=== PATIENT | female | born 2005 | race Hispanic/Latino ===

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

== ENCOUNTER 2024-08-22 14:01 | Emergency (ER) | payer SELFPAY ==
--- OUTSIDE RECORDS SUMMARY | 2024-08-22 14:04 | XMS REPORT | Continuity of Care Document ---
Author Name Unknown Address [address] [facility] [address] [place] [address] [facility] thconnect Address [address] [facility] [address] [place] [address] Care Team Providers Care Tobacco Cloth Reclaimer Name Role Phone Elizabeth Rios Primary Care Physician DAVID RODRIGUEZ Attending Clinician Unavailable DAVID RODRIGUEZ Attending Clinician Unavailable BHAKTI DAVALOS Attending Clinician Unavailable BHAKTI DAVALOS Attending Clinician Unavailable Saba Israel MD Attending Clinician [phone] Doctor Unassigned, Catharine Attending Clinician U navailable SABA ISRAEL Attending Clinician Unavail able Hailey Berumen PA-C Attending Clinician HAILEY BERUMEN Attending Clinician Unavailable BI QUICK Attending Clinician Unavail able Blaine RNDaron Attending Clinician Unavailab ponce Pcp, Patient Does Not Have A Attending Clinician Only, Ang Db Test Attending Clinician UnavailAlbert Kauffman Attending Clinician [phone] ALBERT TOTH Attending Clinician Unavailable Karl Morocho Attending Clinician [phone] DAVID RODRIGUEZ Admitting Clinician Unavailable SABA ISRAEL Admitting Clinician Unavail able Payers Payer Name Policy Type Policy Number Effective Date Expirati on Date Source MEDICAID PENDING PENDING 2023 00:00:00 [employer] Manda [id number] 2017 00:00:00 Problems Condition Name Condition Details Condition Category Status Onset Date Resolution Date Last Treatment Date Treating Clinician Comments Source No known active problems No known active problems Disease [facility] Allergies, Adverse Reactions, Alerts Allergy Name Allergy Type Status Severity Reaction(s) Onset Date Inactive Date Treating Clinician Comments Source NO KNOWN ALLERGIE S Drug Class Active [facility] Social History Social Habit Start Date Stop Date Quantity Comments Source [facility] SARS-[facility]-2 (event) 2022-07-03 00:00:00 2022-07-13 16:28:00 Not sure [facility] History of Social function 2019-03-25 00:00:00 2019-03-25 00:00:00 [facility] Tobacco use and exposure 2018-07-15 00:00:00 2018-07-15 00:00:00 Smokeless tobacco non-user [facility] Sex Assigned At 2005 00:00:00 2005 00:00:00 [facility] Smoking Status Start Date Stop Date Source Never smoked tobacco [facility] Medications Ordered Medication Name Filled Medication Name [...]
D uration of Therapy: Other (see Comments) [facility] naproxen (NAPROSYN) tablet 250 mg 2022-09 04:15: 00 Yes 250mg 250 mg, Oral, BID MEALS, First dose on 08/17/23 at 2215, Until Discontinu ed, Routine [facility] TAKE ONE CAPSULE BY MOUTH EVERY 8 HOURS FOR 7 DAYS 2022-09 00:00: 00 Yes Fam Almanzar naproxen 250 mg tablet 2022-09 00:00: 00 Yes [id number] 250mg Take 1 tablet by mouth every 8 (eight) hours as needed for Pain (scale 1-3) or Pain (scale 4-6). [facility] cephALEXin 250 mg capsule 2022-09 00:00: 00 08-25 05:59 :00 No [id number] 250mg Take 1 capsule by mouth every 8 (eight) hours for 7 days. [facility] NaCl 0.9% (NS) IV infusion 1,000 mL 2022-09 03:15: 00 Yes 1000mL at 999 mL/hr, Intravenou s, CONTINUOUS , Starting on Sat08/13/23 at 2114, Until Discontinu ed, Routine [facility] acetaminoph en (TYLENOL) tablet 1,000 mg 2022-09 03:15: 00 08-14 03:43 :00 No 1000mg 1,000 mg, Oral, ONCE, 1 dose, On Sat08/13/23 at 2114, Routine [facility] ondansetron (ZOFRAN (PF)) injection 4 mg 2022-09 02:15: 00 08-14 03:43 :00 No 4mg 4 mg, Slow IV Push, ONCE, 1 dose, On Sat08/13/23 at 2015, NERISSA [facility] doxylamine- pyridoxine, vit B6, (DICLEGIS) 10-10 mg per tablet 2022-09 00:00: 00 Yes [id number] 2{tbl} Take 2 tablets by mouth at bedtime as needed for Nausea and Vomiting (N/V). [facility] RINSE MOUTH WITH 15ML (1 CAPFUL) FOR 30 SECONDS AM AND PM AFTER TOOTHBRUSHI NG. EXPECTORATE AFTER RINSING, DO NOT SWALLOW 2022-09 00:00: 00 11-26 00:00 :00 No 12 Fam Almanzar TAKE 1 TABLET BY MOUTH EVERY 6 HOURS NEEDED NAUSEA 02-18 00:00: 00 Yes Fam Ute Yohan TAKE 1 TABLET BY MOUTH EVERY 12 HOURS 02-18 00:00: 00 Yes Fam Almanzar TAKE 1 TABLET TWICE DAILY UNTIL FINISHED. 5-17 00:00: 00 11-26 00:00 :00 No 500 Fam Almanzar TAKE 1 TABLET NOW, AND REPEAT IN 4 DAYS. 5-15 00:00: 00 11-26 00:00 :00 No 150 Fam Almanzar TAKE 1 TABLET BY MOUTH 2 TIMES A DAY FOR 5 DAYS 2021-09 2- 00:00: 00 Yes Fam Almanzar IBUPROFEN 2021-09 00:00: 00 Yes Fam Almanzar IBUPROFEN 800MG TABLETS 2021-09 00:00: 00 Yes Fam Almanzar CLINDAMYCIN 2021-09 00:00: 00 Yes Fam Almanzar APAP/CODEIN E 300-30MG 2021-09 00:00: 00 Yes Fam Almanzar TAKE 1 CAPSULE BY MOUTH THREE TIMES A DAY FOR 7 DAYS 2021-09 00:00: 00 Yes Fam Almanzar CHLORHEX GLU REMEDIOS 0.12% 2021-09 00:00: 00 11-26 00:00 :00 No 12 Fam Almanzar No known medications 2021-09 0-18 17:24: 05 No No known medication s [facility] SMZ/TMP DS [id number] 0-18 00:00: 00 Yes Fam Almanzar sulfamethox azole-trime thoprim (BACTRIM DS) 800-160 mg per tablet 2021-0918 00:00: 00 07-14 04:59 :00 No [id number] 1{tbl} Take 1 tablet by mouth in the morning and 1 tablet in the evening. Do all this for 10 days. [facility] No known medications - 16:14: 29 No No known medication s [facility] TAKE 1 TABLET NOW, AND REPEAT IN 4 DAYS. - 00:00: 00 Yes 150 Fam Almanzar &lt -24 00:00: 00 Yes 100 Fam Almanzar FLUCONAZOLE -18 00:00: 00 11-26 00:00 :00 No 150 Fam Almanzar METRONIDAZO L 2021-0 7-18 00:00: 00 4- 03-13 00:00 :00 No 500 Famaleksandr Almanzar &lt 2022-0 7-13 00:00: 00 No 100 &lt 2022-0 7-13 00:00: 00 No TAKE 1/2 TABLET BY MOUTH EVERY 8 HOURS NEEDED FOR PAIN 2-0 7-13 00:00: 00 No 800 &lt 2022-0 7-13 00:00: 00 Yes Fam Almanzar TAKE 1/2 TABLET BY MOUTH EVERY 8 HOURS NEEDED FOR PAIN 2-0 7-13 00:00: 00 Yes 800 Fam Almanzar &lt 2022-0 7-13 00:00: 00 Yes 100 Fam Almanzar Dose Unknown 0 5-09 00:00: 00 No Dose Unknown 0 5-09 00:00: 00 Yes Fam Almanzar Dose Unknown 0 4-11 00:00: 00 No Dose Unknown 0 4-11 00:00: 00 Yes Fam Almanzar Dose Unknown 0 4-08 00:00: 00 No terbinafine HCl 1 % topical cream 2021-0 4-08 00:00: 00 No 1% terbinafine HCl 1 % topical cream 0 4-08 00:00: 00 Yes 1% Fam Almanzar Dose Unknown 0 4-08 00:00: 00 Yes Fam Almanzar Dose Unknown 0 2-15 00:00: 00 No doxycycline monohydrate 100 mg capsule 0 2-15 00:00: 00 Yes 1mg Fam Almanzar No known medications 0 6-16 10:38: 31 No [facility] ibuprofen 200 mg tablet 0 2-11 00:00: 00 No 1mg acetaminoph en 325 mg tablet 0 2-11 00:00: 00 No 1mg Bromfed DM 2 mg-30 mg-10 mg/5 mL oral syrup 0 2-11 00:00: 00 No 10mg/5 mL ibuprofen 200 mg tablet 0 2-11 00:00: 00 Yes 1mg Fam Almanzar acetaminoph en 325 mg tablet 0 2-11 00:00: 00 Yes 1mg Fam Almanzar Bromfed DM 2 mg-30 mg-10 mg/5 mL oral syrup 2019-0 2-11 00:00: 00 Yes 10mg/5 mL Fam Almanzar No known medications No Un raysa [facility] Immunizations Ordered Immunization Name Filled Immunization Name Date Status Comments Source HPV 2015-12-09 00:00:00 Completed [facility] Meningococcal Vaccine 2015-12-09 00:00:00 Completed [facility] TDAP 2015-12-09 00:00:00 Completed [facility] HPV 2015-12-09 00:00:00 Completed [facility] Meningococcal Vaccine 2015-12-09 00:00:00 Completed [facility] TDAP 2015-12-09 00:00:00 Completed [facility] HPV 2015-12-09 00:00:00 Completed [facility] Meningococcal Vaccine 2015-12-09 00:00:00 Completed [facility] TDAP 2015-12-09 00:00:00 Completed [facility] HPV 2015-12-09 00:00:00 Completed [facility] Meningococcal Vaccine 2015-12-09 00:00:00 Completed [facility] TDAP 2015-12-09 00:00:00 Completed [facility] HPV 2015-12-09 00:00:00 Completed [facility] Meningococcal Vaccine 2015-12-09 00:00:00 Completed [facility] TDAP 2015-12-09 00:00:00 Completed [facility] Varicella (varivax)(chicken pox) 2008-11-10 00:00:00 Completed [facility] DTAP 2008-11-10 00:00:00 Completed [facility] MMR 2008-11-10 00:00:00 Completed [facility] Polio (IPV/OPV) 2008-11-10 00:00:00 Completed [facility] DTAP 2008-11-10 00:00:00 Completed [facility] MMR 2008-11-10 00:00:00 Completed [facility] Polio (IPV/OPV) 2008-11-10 00:00:00 Completed [facility] Varicella (varivax)(chicken pox) 2008-11-10 00:00:00 Completed [facility] DTAP 2008-11-10 00:00:00 Completed [facility] MMR 2008-11-10 00:00:00 Completed [facility] Polio (IPV/OPV) 2008-11-10 00:00:00 Completed [facility] Varicella (varivax)(chicken pox) 2008-11-10 00:00:00 Completed [facility] DTAP 2008-11-10 00:00:00 Completed [facility] MMR 2008-11-10 00:00:00 Completed [facility] Polio (IPV/OPV) 2008-11-10 00:00:00 Completed [facility] Varicella (varivax)(chicken pox) 2008-11-10 00:00:00 Completed [facility] DTAP 2008-11-10 00:00:00 Completed [facility] MMR 2008-11-10 00:00:00 Completed [facility] Polio (IPV/OPV) 2008-11-10 00:00:00 Completed [facility] Varicella (varivax)(chicken pox) 2008-11-10 00:00:00 Completed [facility] DTAP Unknown Completed [facility] HPV Unknown Completed [facility] Meningococcal Vaccine Unknown Completed [facility] MMR Unknown Completed [facility] Polio (IPV/OPV) Unknown Completed [facility] TDAP Unknown Completed [facility] Varicella (varivax)(chicken pox) Unknown Completed [facility] DTAP Unknown Completed [facility] HPV Unknown Completed [facility] Meningococcal Vaccine Unknown Completed [facility] MMR Unknown Completed [facility] Polio (IPV/OPV) Unknown [facility] Com[facility] Varicella (varivax)(chicken pox) Unknown Completed [facility] DTAP Unknown Completed [facility] HPV Unknown Completed [facility] Meningococcal Vaccine Unknown Completed [facility] MMR Unknown Completed [facility] Polio (IPV/OPV) Unknown [facility] Completed [facility] Varicella (varivax)(chicken pox) Unknown Completed [facility] DTAP Unknown Completed [facility] HPV Unknown Completed [facility] Meningococcal Vaccine Unknown Completed [facility] MMR Unknown Completed [facility] Polio (IPV/OPV) Unknown Completed [facility] TDAP Unknown Completed [facility] Varicella (varivax)(chicken pox) Unknown Completed [facility] DTAP Unknown Completed [facility] HPV Unknown Completed [facility] Meningococcal Vaccine Unknown Completed [facility] MMR Unknown Completed [facility] Polio (IPV/OPV) Unknown Completed [facility] TDAP Unknown Completed [facility] Varicella (varivax)(chicken pox) Unknown Completed [facility] Vital Signs Vital Name Observation Time Observation Value Comments S ource Systolic blood pressure 2023-08-18 04:31:00 101 mm[Hg] [facility] Diastolic blood pressure 2023-08-18 04:31:00 69 mm[Hg] [facility] Heart rate 2023-08-18 04:31:00 90 /min [facility] Body temperature 2023-08-18 04:31:00 37.22 Lizbeth [facility] Respiratory rate 2023-08-18 04:31:00 18 /min [facility] Oxygen saturation in Arterial blood by Pulse oximetry 2023-08-18 04:31:00 99 /min [facility] Body height 2023-08-17 23:43:00 149.9 cm [facility] Body weight 2023-08-17 23:43:00 43.999 kg [facility] BMI 2023-08-17 23:43:00 19.59 kg/m2 [facility] Body mass index (BMI) [Percentile] Per age and sex 2023-08-17 23:43:00 24.26 % [facility] Systolic blood pressure 2023-08-14 06:00:00 99 mm[Hg] [facility] Diastolic blood pressure 2023-08-14 06:00:00 68 mm[Hg] [facility] Heart rate 2023-08-14 06:00:00 90 /min [facility] Body temperature 2023-08-14 06:00:00 36.78 Lizbeth [facility] Respiratory rate 2023-08-14 06:00:00 16 /min [facility] Oxygen saturation in Arterial blood by Pulse oximetry 2023-08-14 06:00:00 98 /min [facility] Body weight 2023-08-14 00:42:00 43.954 kg [facility] BMI 2023-08-14 00:42:00 19.57 kg/m2 [facility] Body mass index (BMI) [Percentile] Per age and sex 2023-08-14 00:42:00 24.03 % [facility] Body height 2023-08-14 00:41:00 149.9 cm [facility] Systolic blood pressure 2022-07-03 21:47:00 102 mm[Hg] [facility] Diastolic blood pressure 2022-07-03 21:47:00 68 mm[Hg] [facility] Heart rate 2022-07-03 21:47:00 85 /min [facility] Body temperature 2022-07-03 21:47:00 36.56 Lizbeth [facility] Respiratory rate 2022-07-03 21:47:00 14 /min [facility] Body height 2022-07-03 21:47:00 152.4 cm [facility] Body weight 2022-07-03 21:47:00 43.182 kg [facility] BMI 2022-07-03 21:47:00 18.59 kg/m2 [facility] Body mass index (BMI) [Percentile] Per age and sex 2022-07-03 21:47:00 15.48 % [facility] Oxygen saturation in Arterial blood by Pulse oximetry 2022-07-03 21:47:00 99 /min [facility] Systolic blood pressure 2022-06-12 20:38:00 111 mm[Hg] [facility] Diastolic blood pressure 2022-06-12 20:38:00 74 mm[Hg] [facility] Heart rate 2022-06-12 20:38:00 89 /min [facility] Body temperature 2022-06-12 20:38:00 36.72 Lizbeth [facility] Respiratory rate 2022-06-12 20:38:00 18 /min [facility] Body height 2022-06-12 20:38:00 152 cm [facility] Body weight 2022-06-12 20:38:00 40.994 kg [facility] BMI 2022-06-12 20:38:00 17.74 kg/m2 [facility] Body mass index (BMI) [Percentile] Per age and sex 2022-06-12 20:38:00 7.29 % [facility] BP Systolic 2024-08-19 13:33:00 129 mm[Hg] Step hen F Yohan BP Diastolic 2024-08-19 13:33:00 76 mm[Hg] Joseph phen F Yohan Weight Measured 2024-08-19 13:33:00 100.80 pounds Fam F Yohan Height Measured 2024-08-19 13:33:00 59.00 inches Fam F Yohan Body Temperature 2024-08-19 13:33:00 98.10 degrees Fam F Yohan Heart Rate 2024-08-19 13:33:00 85.00 /min Sanjana en F Yohan Respiratory Rate 2024-08-19 13:33:00 18.00 /min Fam F Yohan Height Measured 2024-04-25 13:50:00 59.00 inches Fam F Yohan Body Temperature 2024-04-25 13:50:00 97.70 degrees Fam F Yohan Heart Rate 2024-04-25 13:50:00 84.00 /min Sanjana en F Yohan Respiratory Rate 2024-04-25 13:50:00 16.00 /min Fam F Yohan BP Systolic 2024-04-25 13:50:00 106 mm[Hg] Step hen F Yohan BP Diastolic 2024-04-25 13:50:00 67 mm[Hg] Joseph phen F Yohan Weight Measured 2024-04-25 13:50:00 103.80 pounds Fam F Yohan BP Systolic 2023-07-08 14:39:00 102 mm[Hg] Step hen F Yohan BP Diastolic 2023-07-08 14:39:00 68 mm[Hg] Joseph phen F Yohan Weight Measured 2023-07-08 14:39:00 99.00 pounds Fam F Yohan Height Measured 2023-07-08 14:39:00 59.00 inches Fam F Yohan Body Temperature 2023-07-08 14:39:00 97.90 degrees Fam F Yohan Heart Rate 2023-07-08 14:39:00 102.00 /min Step hen F Yohan Respiratory Rate 2023-07-08 14:39:00 Fam F Yohan BP Systolic 2023-01-28 09:50:00 111 mm[Hg] Step hen F Yohan BP Diastolic 2023-01-28 09:50:00 56 mm[Hg] Joseph phen F Yohan Weight Measured 2023-01-28 09:50:00 95.20 pounds Fam F Yohan Height Measured 2023-01-28 09:50:00 59.00 inches Fam F Yohan Body Temperature 2023-01-28 09:50:00 97.90 degrees Fam F Yohan Heart Rate 2023-01-28 09:50:00 83.00 /min Sanjana en F Yohan Respiratory Rate 2023-01-28 09:50:00 Fam F Yohan BP Systolic 2022-11-13 14:45:00 116 mm[Hg] Step hen F Yohan BP Diastolic 2022-11-13 14:45:00 69 mm[Hg] Joseph phen F Yohan Weight Measured 2022-11-13 14:45:00 90.80 pounds Fam F Yohan Height Measured 2022-11-13 14:45:00 59.00 inches Fam F Yohan Body Temperature 2022-11-13 14:45:00 97.80 degrees Fam F Yohan Heart Rate 2022-11-13 14:45:00 80.00 /min Sanjana en F Yohan Respiratory Rate 2022-11-13 14:45:00 18.00 /min Fam F Yohan BP Systolic 2022-03-28 09:42:00 132 mm[Hg] Step hen F Yohan BP Diastolic 2022-03-28 09:42:00 82 mm[Hg] Joseph phen F Yohan Weight Measured 2022-03-28 09:42:00 90.80 pounds Fam F Yohan Height Measured 2022-03-28 09:42:00 59.00 inches Fam F Yohan Body Temperature 2022-03-28 09:42:00 97.80 degrees Fam F Yohan Heart Rate 2022-03-28 09:42:00 Sanjana en F Yohan Respiratory Rate 2022-03-28 09:42:00 Fam F Yohan BP Systolic 2021-12-22 10:44:00 128 mm[Hg] Step hen F Yohan BP Diastolic 2021-12-22 10:44:00 69 mm[Hg] Joseph phen F Yohan Weight Measured 2021-12-22 10:44:00 90.80 pounds Fam F Yohan Height Measured 2021-12-22 10:44:00 59.00 inches Fam F Yohan Body Temperature 2021-12-22 10:44:00 98.40 degrees Fam F Yohan Heart Rate 2021-12-22 10:44:00 75.00 /min Sanjana en F Yohan Respiratory Rate 2021-12-22 10:44:00 Fam F Yohan BP Systolic 2021-10-19 11:26:00 137 mm[Hg] Step hen F Yohan BP Diastolic 2021-10-19 11:26:00 81 mm[Hg] Joseph phen F Yohan Weight Measured 2021-10-19 11:26:00 88.80 pounds Fam F Yohan Height Measured 2021-10-19 11:26:00 59.00 inches Fam F Yohan Body Temperature 2021-10-19 11:26:00 98.70 degrees Fam F Yohan Heart Rate 2021-10-19 11:26:00 98.00 /min Sanjana en F Yohan Respiratory Rate 2021-10-19 11:26:00 Fam F Yohan BP Systolic 2021-06-01 14:34:00 Step hen F Yohan BP Diastolic 2021-06-01 14:34:00 Joseph phen F Yohan Weight Measured 2021-06-01 14:34:00 98.00 pounds Fam F Yohan Height Measured 2021-06-01 14:34:00 59.00 inches Fam F Yohan Body Temperature 2021-06-01 14:34:00 Fam F Yohan Heart Rate 2021-06-01 14:34:00 Sanjana en F Yohan Respiratory Rate 2021-06-01 14:34:00 Fam F Yohan BP Systolic 2019-10-27 11:16:00 107 mm[Hg] Step hen F Yohan BP Diastolic 2019-10-27 11:16:00 69 mm[Hg] Joseph phen Ute Almanzar Weight Measured 2019-10-27 11:16:00 94.40 pounds Fam Almanzar Height Measured 2019-10-27 11:16:00 Fam Almanzar Body Temperature 2019-10-27 11:16:00 99.00 degrees Fam Almanzar Heart Rate 2019-10-27 11:16:00 75.00 /min Sanjana en Ute Almanzar Respiratory Rate 2019-10-27 11:16:00 Fam Almanzar BP Systolic 2019-05-08 09:17:00 112 mm[Hg] Gabino hen Ute Almanzar BP Diastolic 2019-05-08 09:17:00 61 mm[Hg] Joseph phen Ute Almanzar Weight Measured 2019-05-08 09:17:00 96.20 pounds Fam Almanzar Height Measured 2019-05-08 09:17:00 59.25 inches Fam Almanzar Body Temperature 2019-05-08 09:17:00 98.30 degrees Fam Almanzar Heart Rate 2019-05-08 09:17:00 86.00 /min Sanjana en Ute Almanzar Respiratory Rate 2019-05-08 09:17:00 16.00 /min Fam Almanzar Procedures Procedure Date / Time Performed Performing Clinician Source US FIRST TRIMESTER LESS THAN 14 WEEKS WITH TRANSVAGINAL 2023-08-18 03:30:00 David Rodriguez [facility] TEST, SERUM 2023-08-18 01:08:00 Shannon Rodriguez [facility] ABORH CONFIRMATION (LAB ONLY) 2023-08-18 01:08:00 David Rodriguez [facility] URINALYSIS 2023-08-18 00:32:00 David Rodriguez [facility] HB ABO GROUPING 2023-08-18 00:18:00 David Rodriguez U [facility] COMP. METABOLIC PANEL ([id number]) 2023-08-18 00:14:00 David Rodriguez [facility] TOTAL BETA HCG ASSAY 2023-08-18 00:14:00 Cande Rodriguez [facility] CBC WITH DIFF 2023-08-18 00:14:00 David Rodriguez [facility] ASSIGNMENT OF BENEFITS 2023-08-17 23:52:00 Docto r Unassigned, Catharine [facility] CONSENT/REFUSAL FOR DIAGNOSIS AND TREATMENT 2023-08-17 23:33:48 Doctor Unassigned, Catharine [facility] LIPASE 2023-08-14 03:32:00 Bhakti Davalos [facility] COMP. METABOLIC PANEL ([id number]) 2023-08-14 03:32:00 Bhakti Davalos [facility] CBC WITH DIFF 2023-08-14 03:32:00 Bhakti Davalos [facility] URINALYSIS 2023-08-14 03:32:00 Bhakti Davalos [facility] RAPID INFLUENZA A/B 2023-08-14 03:32:00 Bhakti Davalos [facility] COVID-19 (ID NOW RAPID TESTING) 2023-08-14 03:32:00 Bhakti Davalos [facility] NOTICE OF PRIVACY PRACTICES 2023-08-14 02:28:50 Doctor Unassigned, Catharine [facility] ASSIGNMENT OF BENEFITS 2023-08-14 02:24:29 Docto r Unassigned, Catharine [facility] CONSENT/REFUSAL FOR DIAGNOSIS AND TREATMENT 2023-08-14 00:24:52 Doctor Unassigned, Catharine [facility] POCT MOLECULAR FLU 2022-06-12 21:00:00 Hailey Berumen [facility] POCT MOLECULAR STREP 2022-06-12 20:57:00 Hailey Berumen [facility] ASSIGNMENT OF BENEFITS 2022-06-12 20:35:53 Docto r Unassigned, Catharine [facility] Plan of Care Planned Activity Planned Date Details Comments Source Goal Plan of Care Note [code = 62833-5] Goal Plan of Care Note [code = 04174-2] Goal Plan of Care Note [code = 03419-8] Goal Plan of Care Note [code = 05170-0] Goal Plan of Care Note [code = 62272-3] Goal Plan of Care Note [code = 14163-2] Goal Plan of Care Note [code = 56534-5] Goal Plan of Care Note [code = 68206-1] Goal Plan of Care Note [code = 65374-1] Goal Plan of Care Note [code = 79880-3] Goal Plan of Care Note [code = 95741-2] Encounters Start Date/Time End Date/Time Encounter Type Admission Type Attending [facility] Care Department Encounter ID Source 2024-08-19 13:19:09 2024-08-19 13:19:09 Outpatient [facility] [id number] Fam Almanzar 2024-08-19 00:00:00 2024-08-19 00:00:00 Outpatient Visit [facility] [id number] Fam Almanzar 2024-04-25 13:43:50 2024-04-25 13:43:50 Outpatient [facility] [id number] Fam Almanzar 2024-04-25 00:00:00 2024-04-25 00:00:00 Outpatient Visit [facility] [id number] Fam Almanzar 2023-08-17 17:58:00 2023-08-17 22:42:00 Emergency X DAVID RODRIGUEZ PAMALA [facility] ERT [id number] [facility] 2023-08-17 17:58:00 2023-08-17 22:42:00 Emergency David Rodriguez [facility] .2.840.114 350.1.13.10 4.2.7.2.686 [id number] [facility] 2023-08-13 18:45:00 2023-08-14 00:41:00 Emergency X BHAKTI DAVALOS WAKILI [facility] ERT [id number] [facility] 2023-08-13 18:45:00 2023-08-14 00:41:00 Emergency Bhakti Davalos [facility] .2.840.114 350.1.13.10 4.2.7.2.686 [id number] [facility] 2023-07-08 14:40:53 2023-07-08 14:40:53 Outpatient [place] [id number] Fam Almanzar 2023-01-28 09:47:03 2023-01-28 09:47:03 Outpatient [facility] [id number] Fam Unger Yohan 2022-11-13 14:41:03 2022-11-13 14:41:03 Outpatient [place] [id number] Fam Unger Yohan 2022-07-30 00:00:00 2022-07-30 00:00:00 Telephone Saba [facility] 1.840.114 350.1.13.10 4.2.7.2.686 [id number] [facility] 2022-07-26 00:00:00 2022-07-26 00:00:00 Patient Secure Msg Doctor Unassigned, Catharine [facility] 1.0.114 350.1.13.10 4.2.7.2.686 [id number] [facility] 2022-07-13 16:29:54 2022-07-13 23:59:00 Outpatient R SABA ISRAEL [facility] [id number] [facility] 2022-07-13 16:29:54 2022-07-13 23:59:00 Hospital Encounter Saba Israel [facility] 1.840.114 350.1.13.10 4.2.7.2.686 [id number] [facility] 2022-07-03 16:30:00 2022-07-03 17:02:08 Outpatient R SABA ISRAEL [facility] [id number] [facility] 2022-07-03 16:30:00 2022-07-03 17:02:08 Office Visit Adelaida MuSabavania [facility] 1.2.840.114 350.1.13.10 4.2.7.2.686 [id number] [facility] 2022-06-12 16:00:00 2022-06-12 16:30:00 Office Visit Hailey Berumen [facility] 1.2.840.114 350.1.13.10 4.2.7.2.686 [id number] [facility] 2022-06-12 16:00:00 2022-06-12 16:00:00 Outpatient HAILEY MCFARLAND [facility] [id number] [facility] 2022-06-12 00:00:00 2022-06-12 00:00:00 Orders Only Doctor Unassigned, Catharine [facility] 1.2.840.114 350.1.13.10 4.2.7.2.686 [id number] [facility] 2022-03-28 00:00:00 2022-03-28 00:00:00 Outpatient Visit [id number] 2021-11-02 11:20:00 2021-11-02 11:20:00 Outpatient BI WOOTEN [facility] [id number] [facility] 2021-11-02 11:00:00 2021-11-02 11:00:00 Outpatient BI WOOTEN [facility] [id number] [facility] 2021-10-19 14:00:00 2021-10-19 14:00:00 Outpatient BI WOOTEN [facility] [id number] [facility] 2021-05-29 00:00:00 2021-05-29 00:00:00 Patient Secure Msg Doctor Unassigned, Catharine [facility] 1.2.840.114 350.1.13.10 4.2.7.2.686 [id number] [facility] 2021-05-29 00:00:00 2021-05-29 00:00:00 Letter (Out) [place], [facility] 1.2.840.114 350.1.13.10 4.2.7.2.686 [id number] [facility] 2021-05-29 00:00:00 2021-05-29 00:00:00 Letter (Out) [place], [facility] 1.2.840.114 350.1.13.10 4.2.7.2.686 [id number] [facility] 2021-05-29 00:00:00 2021-05-29 00:00:00 Telephone Pcp, Patient Does Not Have A [facility] 1.2.840.114 350.1.13.10 4.2.7.2.686 [id number] [facility] 2021-05-28 15:00:00 2021-05-28 15:00:00 Outpatient R [facility] [id number] [facility] 2021-05-28 13:21:41 2021-05-28 13:36:41 Laboratory Only Only, Ang Db Test Ry Tothssica [facility] 1.2.840.114 350.1.13.10 4.2.7.2.686 [id number] [facility] 2021-05-28 13:25:00 2021-05-28 13:25:00 Outpatient R ALBERT TOTH [facility] [id number] [facility] 2021-03-01 09:20:00 2021-03-01 09:20:00 Outpatient R [facility] [id number] [facility] 2021-01-27 00:00:00 2021-01-27 00:00:00 Patient Secure Karl Mars [facility] [place] 1.2.840.114 350.1.13.10 4.2.7.2.686 [id number] [facility] 2021-01-25 18:40:00 2021-01-25 18:40:00 Outpatient R [facility] [id number] [facility] Results Test Description Test Time Test Comments Results Result Co mments Source TRICHOMONAS, NAAT, [id number] 22:08:05* Test Item Value Reference Range Interpretation Comme nts TRICHOMONAS, NAAT, URINE (test code = 56291) NEGATIVE NEGATIVE Testing is perfo rmed with Velia SATISH 6800/8800 method usingreal-time polymerase chain reaction (PCR) method. A negative result does not exclude low level infection, specimensampling error, or collection error. HIV 1/2 4TH GEN, RFLX [id number] 04:38:17* Test Item Value Reference Range Interpretation Comme nts HIV 1/2 4TH GEN, RFLX CONF ( test code = 3514) NON-REACTIVE NON-REACTIVE HEPATITIS PANEL, [id number] 04:38:17* Test Item Value Reference Range Interpretation Comments HEPATITIS A TOTAL AB (test code = 2725) REACTIVE NON-REACTIVE A HEPATITIS B SURF AG (test code = 2739) NON-REACTIVE NON-REACTIVE HEP B CORE TOTAL AB (test code = 2729) NON-REACTIVE NON-REACTIVE HEPATITIS B SURFACE AB (test code = 2737) NON-REACTIVE NON-REACTIVE HEPATITIS C ANTIBODY (test code = 4675) NON-REACTIVE NON-REACTIVE INTERPRETATION HEPATITIS A: (test code = 2552) (NOTE) Hepatitis A sero logy consistent with past exposure or previousvaccination to hepatitis A virus. No evidence of current acutehepatitis A infection. INTERPRETATION HEPATITIS B: (test code = 36559) (NOTE) Hepatitis B sero logy shows no evidence of past exposure to orcurrent infection with hepatitis B virus. No evidence of hepatitis Bimmunization is identified. INTERPRETATION HEPATITIS C: (test code = 40236) (NOTE) Hepatitis C sero logy shows no evidence of exposure to hepatitisC virus at this time. It can take up to 12 months after exposure tothe hepatitis C virus for antibodies to become detectable in the blood in certain patients. HEPATITIS A [id number] 04:38:17* Test Item Value Reference Range Interpretation Comme nts HEPATITIS A IgM (test code = 2728) NON-REACTIVE NON-REACTIVE UNLESS OTHERW ISE INDICATED, ALL TESTING PERFORMED AT [facility] [address] [place] [address] COMMUTATOR V RING ASSEMBLER: NO MELGAR M.D. CLIA NUMBER [id number] [place]. [id number] 03:24:20* Test Item Value Reference Range Interpretation Comme nts RPR RESULT (test code = 3501) NON-REACTIVE NON-REACTIVE RPR TITER (test code = 3500) NOT INDIC. TITER NOT INDIC. CT/NG, NAAT, [id number] 15:25:07* Test Item Value Reference Range Interpretation Comme nts CHLAMYDIA, NAAT, URINE (test code = 21461) NEGATIVE NEGATIVE Testing is perfo rmed with Velia SATISH 6800/8800 systems usingreal-time polymerase chain reaction (PCR) method. A negative result does not exclude low level infection, specimensampling error, or collection error. GONORRHEA, NAAT, URINE (test code = 67907) NEGATIVE NEGATIVE Testing is perfo rmed with Velia SATISH 6800/8800 systems usingreal-time polymerase chain reaction (PCR) method. A negative result does not exclude low level infection, specimensampling error, or collection error. UNLESS OTHERWISE INDICATED, ALL TESTING PERFORMED AT [facility] [address] [place] [address] COMMUTATOR V RING ASSEMBLER: NO MELGAR M.D. CLIA NUMBER [id number] [place]. [id number] CT/NG, NAAT, [id number] 00:00:00* Test Item Value Reference Range Interpretation Comme nts CHLAMYDIA, NAAT, URINE (test code = 87635) NEGATIVE GONORRHEA, NAAT, URINE (test code = 01024) NEGATIVE Fam Unger AustinCT/NG, NAAT, [id number] 00:00:00* Test Item Value Reference Range Interpretation Comme nts CHLAMYDIA, NAAT, URINE (test code = 93286) NEGATIVE GONORRHEA, NAAT, URINE (test code = 61712) NEGATIVE Fam Unger AustinPREGNANCY TEST, [id number] 02:25:38* Test Item Value Reference Range Interpretation Comme nts PREG SERUM (test code = 5843610118) Positive BEE (test code = BEE) Positive greater t jackson or equal to 10 IU/L hCG. [facility]2023-08-18 01:40:00* Test Item Value Reference Range Interpretation Comme nts ABO & RH (test code = 20) O Positive [facility] BETA HCG [id number] 01:29:04* Test Item Value Reference Range Interpretation Comme nts BETA HCG (test code = 3412431020) 50780.00 See_Comment [Automated Dishablea ge] The system which generated this result transmitted reference range: Non- female and male patients: <5 mIU/mL. The reference range was not used to interpret this result as normal/abnormal. BEE (test code = BEE) Gestational Age ?Range (mIU/mL) 1-10 ?Weeks ?77-90905349-15 Weeks ?33635-08421878-48 Weeks ?6689-14057105-50 Weeks ?4831-237507 Biotin has been reported to cause a negative bias, interpret results relative to patient's use of biotin. [facility]. METABOLIC PANEL (95724)2023-08-18 00:43:44* Test Item Value Reference Range Interpretation Comme nts NA (test code = 3801081897) 138 mmol/L 135-145 K (test code = 0372924209) 3.8 mmol/L 3.5-5.0 CL (test code = 3343531003) 104 mmol/L 98-108 CO2 TOTAL (test code = 1998384597) 27 mmol/L 23-31 AGAP (test code = 5647257026) 7 2-16 BUN (test code = 4357488454) 9 mg/dL 7-23 GLUCOSE (test code = 1721203802) 92 mg/dL 70-110 CREATININE (test code = 4360227738) 0.46 mg/dL 0.50-1.04 L TOTAL BILI (test code = 2684124924) 0.5 mg/dL 0.1-1.1 CALCIUM (test code = 5429783283) 9.6 mg/dL 8.6-10.6 T PROTEIN (test code = 5963057006) 7.3 g/dL 6.3-8.2 ALBUMIN (test code = 6462060843) 4.2 g/dL 3.5-5.0 ALK PHOS (test code = 2597285794) 66 U/L 34-122 ALTv (test code = 1742-6) 34 U/L 5-35 AST(SGOT) (test code = 3867677715) 44 U/L 13-40 H eGFR (test code = 08146-0) 142.5 mL/min/1.73m2 CKD-EPI eGFR (2020). Assuming creatinine has been stable day-to-day for at least three months, the eGFR indicates Category G1 (>= 90 mL/min/1.73 m2) Lab Interpretation (test code = 97264-0) Abnormal [facility] WITH [id number] 00:31:46* Test Item Value Reference Range Interpretation Comme nts WBC (test code = 6690-2) 11.06 See_Comment [Automated Uberseq] The system which generated this result transmitted reference range: 4.50 - 13.50 10*3/?L. The reference range was not used to interpret this result as normal/abnormal. RBC (test code = 789-8) 4.63 See_Comment [Automated Uberseq] The system which generated this result transmitted [...] 33.2 g/dL 32.0-36.0 RDW-SD (test code = 04677-4) 39.4 fL 38.5-49.0 RDW-CV (test code = 788-0) 13.0 % 11.5-14.0 PLT (test code = 777-3) 287 See_Comment [Automated messa ge] The system which generated this result transmitted reference range: 135 - 361 10*3/?L. The reference range was not used to interpret this result as normal/abnormal. MPV (test code = 31959-1) 10.7 fL 9.4-13.3 NRBC/100 WBC (test code = 8346956720) 0.0 See_Comment [Automated AppwoRx ssage] The system which generated this result transmitted reference range: 0.0 - 10.0 /100 WBCs. The reference range was not used to interpret this result as normal/abnormal. NRBC x10^3 (test code = 4966428175) See_Comment [Automated Dishablea ge] The system which generated this result transmitted reference range: 10*3/?L. The reference range was not used to interpret this result as normal/abnormal. GRAN MAT (NEUT) % (test code = 770-8) 73.7 % IMM GRAN % (test code = 2833153784) 0.30 % LYMPH % (test code = 736-9) 15.9 % MONO % (test code = 5905-5) 8.3 % EOS % (test code = 713-8) 1.5 % BASO % (test code = 706-2) 0.3 % GRAN MAT x10^3(ANC) (test code = 6145662237) 8.15 10*3/uL 1.50-10.30 IMM GRAN x10^3 (test code = 1507471643) 0.03 10*3/uL 0.00-0.06 LYMPH x10^3 (test code = 731-0) 1.76 10*3/uL 0.70-7.40 MONO x10^3 (test code = 742-7) 0.92 10*3/uL 0.00-0.50 H EOS x10^3 (test code = 711-2) 0.17 10*3/uL 0.00-0.40 BASO x10^3 (test code = 704-7) 0.03 10*3/uL 0.00-0.10 Lab Interpretation (test code = 12139-4) Abnormal [facility] Screen - ONCE [id number] 00:28:00 * Test Item Value Reference Range Interpretation Comme nts ABO & RH (test code = 20) O Positive IAT (test code = 1185) Negative [facility], NAAT, [id number] 20:38:18* Test Item Value Reference Range Interpretation Comme nts CHLAMYDIA, NAAT, URINE (test code = 86464) NEGATIVE NEGATIVE Testing is perfo rmed with Velai SATISH 6800/8800 systems usingreal-time polymerase chain reaction (PCR) method. A negative result does not exclude low level infection, specimensampling error, or collection error. GONORRHEA, NAAT, URINE (test code = 42710) NEGATIVE NEGATIVE Testing is perfo rmed with Velia SATISH 6800/8800 systems usingreal-time polymerase chain reaction (PCR) method. A negative result does not exclude low level infection, specimensampling error, or collection error. VAGINAL PATHOGENS DNA [id number] 15:19:00* Test Item Value Reference Range Interpretation Comme nts ROSA SPECIES (test code = 85959) NEGATIVE NEGATIVE G. VAGINALIS (test code = 83159) POSITIVE NEGATIVE A T. VAGINALIS (test code = 88762) NEGATIVE NEGATIVE Note: The [facility] in [facility] VPIII Microbial Identification Testis a DNA probe test intended for use in the detectionand identification of Rosa species, Gardnerellavaginalis and Trichomonas vaginalis nucleic acid. HERPES SIMPLEX AB, [id number] 13:00:18* Test Item Value Reference Range Interpretation Comme nts HERPES SIMPLEX AB, IgM (test code = 23347) 0.70 INDEX SEE BELOW INTERPRETATION UNITS RANGE ----- ----- NEGATIVE INDEX <=0.89 EQUIVOCAL INDEX 0.90-1.09 POSITIVE INDEX >=1.10 HERPES SIMPLEX 1/2 AB, IgG [id number] 06:53:36* Test Item Value Reference Range Interpretation Comme nts HERPES SIMPLEX 1 AB, IgG (test code = 24441) 0.507 INDEX SEE BELOW INTERPRETATION U NITS RANGE ----- ----- NON-REACTIVE INDEX <1.000 REACTIVE INDEX >=1.000 HERPES SIMPLEX 2 AB, IgG (test code = 39138) 0.076 INDEX SEE BELOW INTERPRETATION U NITS RANGE ----- ----- NON-REACTIVE INDEX <1.000 REACTIVE INDEX >=1.000 HIV 1/2 4TH GEN, RFLX [id number] 06:53:36* Test Item Value Reference Range Interpretation Commjoseph portillo HIV 1/2 4TH GEN, RFLX CONF ( test code = 3514) NON-REACTIVE NON-REACTIVE HEPATITIS PANEL, [id number] 06:53:36* Test Item Value Reference Range Interpretation Comme nts HEPATITIS A IgM (test code = 42736) NON-REACTIVE NON-REACTIVE HEPATITIS B CORE IgM (test code = 4644) NON-REACTIVE NON-REACTIVE HEPATITIS B SURF AG (test code = 2739) NON-REACTIVE NON-REACTIVE HEPATITIS C ANTIBODY (test code = 4675) NON-REACTIVE NON-REACTIVE INTERPRETATION HEPATITIS A: (test code = 2552) (NOTE) Hepatitis A serology shows no evidence of acute hepatitis A. INTERPRETATION HEPATITIS B: (test code = 22178) (NOTE) Hepatitis B serology shows no evidence of acute hepatitis B andno indication of exposure to hepatitis B virus in the previous hina eight months. INTERPRETATION HEPATITIS C: (test code = 59387) (NOTE) Hepatitis C serology shows no evidence of exposure to hepatitisC virus at this time. It can take up to 12 months after exposure tothe hepatitis C virus for antibodies to become detectable in the blood in certain patients. [id number] 04:02:01* Test Item Value Reference Range Interpretation Comme nts RPR RESULT (test code = 3501) NON-REACTIVE NON-REACTIVE RPR TITER (test code = 3500) NOT INDIC. TITER NOT INDIC. UNLESS OTHERWISE INDICATED, ALL TESTING PERFORMED AT [facility] [address] [place] [address] COMMUTATOR V RING ASSEMBLER: NO MELGAR M.D. [place] NUMBER [id number] [facility] [place]. [id number] HERPES SIMPLEX [id number] 00:00:00* Test Item Value Reference Range Interpretation Comme nts HERPES SIMPLEX AB, IgM (test code = 88222) 0.70 INDEX Fam AlmanzarHERPES SIMPLEX 1/2 [id number] 00:00:00* Test Item Value Reference Range Interpretation Comme nts HERPES SIMPLEX 1 AB, IgG (te st code = 44291) 0.507 INDEX HERPES SIMPLEX 2 AB, IgG (te st code = 57655) 0.076 INDEX Fam AlmanzarVAGINAL PATHOGENS DNA [id number] 00:00:00* Test Item Value Reference Range Interpretation Comme nts ROSA SPECIES (test code = 55343) NEGATIVE G. VAGINALIS (test code = 79446) POSITIVE T. VAGINALIS (test code = 06012) NEGATIVE Fam AlmanzarHIV 1/2 4TH GEN, RFLX [id number] 00:00:00* Test Item Value Reference Range Interpretation Comme nts HIV 1/2 4TH GEN, RFLX CONF ( test code = 3514) NON-REACTIVE Fam AlmanzarACUTE HEPATITIS [id number] 00:00:00* Test Item Value Reference Range Interpretation Comme nts HEPATITIS A IgM (test code = 58533) NON-REACTIVE HEPATITIS B CORE IgM (test c ode = 4644) NON-REACTIVE HEPATITIS B SURF AG (test co de = 2739) NON-REACTIVE HEPATITIS C ANTIBODY (test c ode = 4675) NON-REACTIVE INTERPRETATION HEPATITIS A: (test code = 2552) (NOTE) INTERPRETATION HEPATITIS B: (test code = 75102) (NOTE) INTERPRETATION HEPATITIS C: (test code = 08097) (NOTE) Fam AlmanzarCT/NG, TMA, [id number] 00:00:00* Test Item Value Reference Range Interpretation Comme nts CHLAMYDIA, NAAT, URINE (test code = 40798) NEGATIVE GONORRHEA, NAAT, URINE (test code = 60973) NEGATIVE Fam [id number] 00:00:00* Test Item Value Reference Range Interpretation Comme nts RPR RESULT (test code = 3501) NON-REACTIVE RPR TITER (test code = 3500) NOT INDIC. TITER Fam PenaPES SIMPLEX [id number] 00:00:00* Test Item Value Reference Range Interpretation Comme nts HERPES SIMPLEX AB, IgM (test code = 44671) 0.70 INDEX Fam AlmanzarHERPES SIMPLEX 1/2 [id number] 00:00:00* Test Item Value Reference Range Interpretation Comme nts HERPES SIMPLEX 1 AB, IgG (te st code = 67040) 0.507 INDEX HERPES SIMPLEX 2 AB, IgG (te st code = 43168) 0.076 INDEX Fam AlmanzarVAGINAL PATHOGENS DNA [id number] 00:00:00* Test Item Value Reference Range Interpretation Comme nts ROSA SPECIES (test code = 44575) NEGATIVE G. VAGINALIS (test code = 20708) POSITIVE T. VAGINALIS (test code = 40808) NEGATIVE Fam AlmanzarHIV 1/2 4TH GEN, RFLX [id number] 00:00:00* Test Item Value Reference Range Interpretation Comme nts HIV 1/2 4TH GEN, RFLX CONF ( test code = 3514) NON-REACTIVE Fam AlmanzarACUTE HEPATITIS [id number] 00:00:00* Test Item Value Reference Range Interpretation Comme nts HEPATITIS A IgM (test code = 80545) NON-REACTIVE HEPATITIS B CORE IgM (test c ode = 4644) NON-REACTIVE HEPATITIS B SURF AG (test co de = 2739) NON-REACTIVE HEPATITIS C ANTIBODY (test c ode = 4675) NON-REACTIVE INTERPRETATION HEPATITIS A: (test code = 2552) (NOTE) INTERPRETATION HEPATITIS B: (test code = 42029) (NOTE) INTERPRETATION HEPATITIS C: (test code = 28846) (NOTE) Fam AlmanzarCT/NG, TMA, [id number] 00:00:00* Test Item Value Reference Range Interpretation Comme nts CHLAMYDIA, NAAT, URINE (test code = 20316) NEGATIVE GONORRHEA, NAAT, URINE (test code = 84487) NEGATIVE Fam [id number] 00:00:00* Test Item Value Reference Range Interpretation Comme nts RPR RESULT (test code = 3501) NON-REACTIVE RPR TITER (test code = 3500) NOT INDIC. TITER Fam AlmanzarPOCT MOLECULAR [id number] 21:12:14* Test Item Value Reference Range Interpretation Comme nts POCT Molecular FluA (test co de = 27277-8) Negative Negative POCT Molecular FluB (test co de = 48982-4) Negative Negative Lab Interpretation (test cod e = 83905-3) Normal [facility] MOLECULAR [id number] 21:12:14* Test Item Value Reference Range Interpretation Comme nts POCT Molecular FluA (test co de = 33144-2) Negative Negative POCT Molecular FluB (test co de = 47984-8) Negative Negative Lab Interpretation (test cod e = 20346-1) Normal [facility] MOLECULAR [id number] 21:12:14* Test Item Value Reference Range Interpretation Comme nts POCT Molecular FluA (test co de = 88354-7) Negative Negative POCT Molecular FluB (test co de = 11003-7) Negative Negative Lab Interpretation (test cod e = 99065-8) Normal [facility] MOLECULAR [id number] 21:04:45* Test Item Value Reference Range Interpretation Comme nts POCT Molecular Strep (test c ode = 05901-2) Negative Negative Lab Interpretation (test cod e = 14556-5) Normal [facility] MOLECULAR [id number] 21:04:45* Test Item Value Reference Range Interpretation Comme nts POCT Molecular Strep (test c ode = 26734-4) Negative Negative Lab Interpretation (test cod e = 00486-2) [facility] MOLECULAR [id number] 21:04:45* Test Item Value Reference Range Interpretation Comme nts POCT Molecular Strep (test c ode = 55774-1) Negative Negative Lab Interpretation (test cod e = 71979-4) Normal [facility]/NG, NAAT, [id number] 10:28:27* Test Item Value Reference Range Interpretation Comme nts GONORRHEA, NAAT (test code = 02940) NEGATIVE NEGATIVE IMPORTANT NO ISRA[place]: SEE ANNOUNCEMENT AT [email or web address] Note: Assay methodology is nucleic acid amplification by clinical support manager mediated amplification (TMA) utilizing the AptTelefon[employer] Combo 2 Assay. CHLAMYDIA, NAAT (test code = 16426) NEGATIVE NEGATIVE IMPORTANT NO ISRA[place]: SEE ANNOUNCEMENT AT [email or web address] Note: Assay methodology is nucleic acid amplification by clinical support manager mediated amplification (TMA) utilizing the Survata Combo 2 Assay. GC AND CHLAMYDIA, AMPLIFIED, [id number] 00:00:00* Test Item Value Reference Range Interpretation Comme nts GONORRHEA, NAAT (test code = 76147) NEGATIVE CHLAMYDIA, NAAT (test code = 87503) NEGATIVE Fam AlmanzarGC AND CHLAMYDIA, AMPLIFIED, [id number] 00:00:00* Test Item Value Reference Range Interpretation Comme nts GONORRHEA, NAAT (test code = 56626) NEGATIVE CHLAMYDIA, NAAT (test code = 27321) NEGATIVE Fam AlmanzarVAGINAL PATHOGENS DNA [id number] 13:18:05* Test Item Value Reference Range Interpretation Comme nts ROSA SPECIES (test code = 03074) POSITIVE NEGATIVE A G. VAGINALIS (test code = 24793) POSITIVE NEGATIVE A T. VAGINALIS (test code = 27091) NEGATIVE NEGATIVE UNLESS OTHERWISE INDICATED, ALL TESTING PERFORMED [facility] [address] [place] [address] COMMUTATOR V RING ASSEMBLER: CALVIN OLIVIA M.D. CLIA NUMBER [id number] [facility] [place]. [id number] VAGINAL PATHOGENS DNA [id number] 00:00:00* Test Item Value Reference Range Interpretation Comme nts ROSA SPECIES (test code = 38879) POSITIVE G. VAGINALIS (test code = 44085) POSITIVE T. VAGINALIS (test code = 90817) NEGATIVE Fam Unger AustinVAGINAL PATHOGENS DNA [id number] 00:00:00* Test Item Value Reference Range Interpretation Comme nts ROSA SPECIES (test code = 76476) POSITIVE G. VAGINALIS (test code = 77489) POSITIVE T. VAGINALIS (test code = 08698) NEGATIVE Fam Unger AustinCT/NG, NAAT, [id number] 12:06:45* Test Item Value Reference Range Interpretation Comme nts GONORRHEA, NAAT (test code = 96811) NEGATIVE NEGATIVE IMPORTANT NO [place]: SEE ANNOUNCEMENT AT [email or web address] [email or web address] Note: Assay methodology is nucleic acid amplification by clinical support manager mediated amplification (TMA) utilizing the Aptima Combo 2 Assay. CHLAMYDIA, NAAT (test code = 94960) NEGATIVE NEGATIVE IMPORTANT NO [place]: SEE ANNOUNCEMENT AT [email or web address] Note: Assay methodology is nucleic acid amplification by clinical support manager mediated amplification (TMA) utilizing the Aptima Combo 2 Assay. UNLESS OTHERWISE INDICATED, ALL TESTING PERFORMED [facility], [facility]. [address] [place] [address] COMMUTATOR V RING ASSEMBLER: CALVIN OLIVIA M.D. CLIA NUMBER [id number] [facility] [place]. [id number] GC AND CHLAMYDIA, AMPLIFIED, [id number] 00:00:00* Test Item Value Reference Range Interpretation Comme nts GONORRHEA, NAAT (test code = 49217) NEGATIVE CHLAMYDIA, NAAT (test code = 01882) NEGATIVE GC AND CHLAMYDIA, AMPLIFIED, [id number] 00:00:00* Test Item Value Reference Range Interpretation Comme nts GONORRHEA, NAAT (test code = 74577) NEGATIVE CHLAMYDIA, NAAT (test code = 11455) NEGATIVE Fam AlmanzarGC AND CHLAMYDIA, AMPLIFIED, [id number] 00:00:00* Test Item Value Reference Range Interpretation Comme nts GONORRHEA, NAAT (test code = 13250) NEGATIVE CHLAMYDIA, NAAT (test code = 54868) NEGATIVE Fam AlmanzarCHLAMYDIA, NAAT, [id number] 09:29:13* Test Item Value Reference Range Interpretation Comme nts CHLAMYDIA, NAAT (test code = 44480) POSITIVE NEGATIVE A IMPORTANT NO [place]: SEE ANNOUNCEMENT AT [email or web address] [email or web address] Note: Assay methodology is nucleic acid amplification by clinical support manager mediated amplification (TMA) utilizing the Aptima Combo 2 Assay. GONORRHEA, NAAT, [id number] 09:29:13* Test Item Value Reference Range Interpretation Comme nts GONORRHEA, NAAT (test code = 84745) NEGATIVE NEGATIVE IMPORTANT NO [place]: SEE ANNOUNCEMENT AT [email or web address] [email or web address] Note: Assay methodology is nucleic acid amplification by clinical support manager mediated amplification (TMA) utilizing the Survata Combo 2 Assay. CHLAMYDIA, AMPLIFIED, [id number] 00:00:00* Test Item Value Reference Range Interpretation Comme nts CHLAMYDIA, NAAT (test code = 26555) POSITIVE GC, AMPLIFIED, [id number] 00:00:00* Test Item Value Reference Range Interpretation Comme nts GONORRHEA, NAAT (test code = 10806) NEGATIVE CHLAMYDIA, AMPLIFIED, [id number] 00:00:00* Test Item Value Reference Range Interpretation Comme nts CHLAMYDIA, NAAT (test code = 82438) POSITIVE Fam AlmanzarGC, AMPLIFIED, [id number] 00:00:00* Test Item Value Reference Range Interpretation Comme nts GONORRHEA, NAAT (test code = 68065) NEGATIVE Fam AlmanzarCHLAMYDIA, AMPLIFIED, [id number] 00:00:00* Test Item Value Reference Range Interpretation Comme nts CHLAMYDIA, NAAT (test code = 97675) POSITIVE Fam AlmanzarGC, AMPLIFIED, [id number] 00:00:00* Test Item Value Reference Range Interpretation Comme nts GONORRHEA, NAAT (test code = 10007) NEGATIVE Fam AlmanzarHIV 1/2 4TH GEN, RFLX [id number] 04:39:43* Test Item Value Reference Range Interpretation Comme nts HIV 1/2 4TH GEN, RFLX CONF (test code = 3514) NON-REACTIVE NON-REACTIVE UNLESS OTHERWISE INDICATED, ALL TESTING PERFORMED [facility] [address] [place] [address] COMMUTATOR V RING ASSEMBLER: CALVIN OLIVIA M.D. CLIA NUMBER [id number] [facility] [place]. [id number] 04:03:59* Test Item Value Reference Range Interpretation Comme nts RPR RESULT (test code = 3501) NON-REACTIVE NON-REACTIVE RPR TITER (test code = 3500) NOT INDIC. TITER NOT INDIC. [id number] 00:00:00* Test Item Value Reference Range Interpretation Comme nts RPR RESULT (test code = 3501) NON-REACTIVE RPR TITER (test code = 3500) NOT INDIC. TITER HIV AB/AG COMBO RFLX [id number] 00:00:00* Test Item Value Reference Range Interpretation Comme nts HIV 1/2 4TH GEN, RFLX CONF ( test code = 3514) NON-REACTIVE [id number] 00:00:00* Test Item Value Reference Range Interpretation Comme nts RPR RESULT (test code = 3501) NON-REACTIVE RPR TITER (test code = 3500) NOT INDIC. TITER Fam AlmanzarHIV AB/AG COMBO RFLX [id number] 00:00:00* Test Item Value Reference Range Interpretation Comme nts HIV 1/2 4TH GEN, RFLX CONF ( test code = 3514) NON-REACTIVE Fam Unger [id number] 00:00:00* Test Item Value Reference Range Interpretation Comme nts RPR RESULT (test code = 3501) NON-REACTIVE RPR TITER (test code = 3500) NOT INDIC. TITER Fam AlmanzarHIV AB/AG COMBO RFLX [id number] 00:00:00* Test Item Value Reference Range Interpretation Comme nts HIV 1/2 4TH GEN, RFLX CONF ( test code = 3514) NON-REACTIVE Fam Unger Yohan
[2024-08-22] MEDS ORDERED: BENZONATATE 100 MG CAP PO ONE (14:18)
[2024-08-22 14:52] LABS: SARS-CoV-2 Antigen CONTROL BLUE LINE VIS/BG OK; SARS-CoV-2 Antigen Rapid Res Negative (Negative)
--- NOTE | 2024-08-22 15:25 | ER ---
Nurse's Notes [facility] Name: Caroline Molina Age: 18 yrs Sex: Female : 2005 Arrival Date: 08/22/2024 Time: 14:01 Bed 12 Private MD: Diagnosis: Cough;Acute pharyngitis, unspecified Presentation: 08/22 14:09 Chief complaint: Patient states: cough x4 days with sore throat since thanksgiving. [facility] Coronavirus screen: At this time, the client does not indicate any symptoms associated with coronavirus-19. Ebola Screen: No symptoms or risks identified at this time. Initial Sepsis Screen: Does the patient meet any 2 criteria? No. Patient's initial sepsis screen is negative. Does the patient have a suspected source of infection? No. Patient's initial sepsis screen is negative. Risk Assessment: Do you want to hurt yourself or someone else? Patient reports no desire to harm self or others. Onset of symptoms was August 22, 2024. 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 - Infectious Disease History:: Denies. - Social history:: Smoking status: Patient denies any tobacco usage or history of. Screenin:25 [facility] ED Fall Risk Assessment (Adult) History of falling in the last 3 months, kc6 including since admission No falls in past 3 months (0 pts) Confusion or Disorientation No (0 pts) Intoxicated or Sedated No (0 pts) Impaired Gait No (0 pts) Mobility Assist Device Used No (0 pt) Altered Elimination No (0 pt) Score/Fall Risk Level 0 - 2 = Low Risk Oriented to surroundings, Maintained a safe environment. Abuse screen: Denies threats or abuse. Denies injuries from another. Nutritional screening: No deficits noted. Tuberculosis screening: No symptoms or risk factors identified. Assessment: 14:30 General: Appears in no apparent distress. Behavior is calm, cooperative. Pain: Pain hb currently is 6 out of 10 on a pain scale. Neuro: Level of Consciousness is awake, alert, obeys commands, Oriented to person, place, time, situation. Cardiovascular: Patient's skin is warm and dry. Respiratory: Reports cough that is Respiratory effort is even, unlabored, Respiratory pattern is regular, symmetrical. GI: No signs and/or symptoms were reported involving the gastrointestinal system. : No signs and/or symptoms were reported regarding the genitourinary system. EENT: Reports sore throat . Derm: Skin is pink, warm \T\ dry. Musculoskeletal: No signs and/or symptoms reported regarding the musculoskeletal system. 15:15 Reassessment: Patient appears in no apparent distress at this time. Patient and/or hb family updated on plan of care and expected duration. Pain level reassessed. Patient is alert, oriented x 3, equal unlabored respirations, skin warm/dry/pink. Vital Signs: 14:09 BP 129 / 79; Pulse 78; Resp 18 S; Temp 99(O); Pulse Ox 99% on R/A; Weight 44.45 kg (R); kc6 Height 4 ft. 11 in. (R); Pain 6/10; 14:09 Body Mass Index 19.79 (44.45 kg, 149.86 cm) - Percentile 25.1 % kc6 14:09 Pain Scale: Adult kc6 ED Course: 14:03 Patient arrived in ED. ra3 14:06 Stephan Verma PA is PHCP. cp 14:06 Trenton Santana MD is Attending Physician. cp 14:10 Triage completed. kc6 14:10 Arm band placed on. kc6 14:24 Patient has correct armband on for positive identification. Bed in low position. Call kc6 light in reach. Side rails up X 1. Pulse ox on. NIBP on. Door closed. Noise minimized. Lights dimmed. Pillow given. 14:24 Patient maintains SpO2 saturation greater than 95% on room air. kc6 14:29 Leanna Lowe, RN is Primary Nurse. hb 14:29 SARS RAPID Sent. hb 14:29 RSV Sent. hb 14:29 Influenza Screen (a \T\ B) Sent. hb 14:29 Strep Sent. hb 14:30 Provided Education on: use of call light . hb 14:30 No provider procedures requiring assistance completed. Patient did not have IV access hb during this emergency room visit. Administered Medications: 14:29 Drug: Tessalon Perle PO 100 mg PO once Route: PO; hb 15:33 Follow up: Response: No adverse reaction hb Medication: 14:30 VIS not applicable for this client. hb Outcome: 15:25 Discharge ordered by MD. cp 15:32 Discharged to home ambulatory, hb 15:32 Condition: stable 15:32 Discharge instructions given to patient, Instructed on discharge instructions, follow up and referral plans. medication usage, Demonstrated understanding of instructions, follow-up care, medications, Prescriptions given X 2, 15:33 Patient left the ED. hb Signatures: Stephan Verma PA PA cp Baxter, Heather, RN RN Romelia Pettit RN RN kcLori Adhikari ra3 Corrections: (The following items were deleted from the chart) 14:13 14:09 Chief complaint: Patient states: sore throat and pain when coughing. states she keri hasn't been feeling well since Thanksgiving keri
--- NOTE | 2024-08-22 15:25 | EDPHYS ---
Physician Documentation [facility] Name: Caroline Molina Age: 18 yrs Sex: Female : 2005 Arrival Date: 08/22/2024 Time: 14:01 Bed 12 Private MD: ED Physician Trenton Santana HPI: 08/22 14:20 This 18 yrs old Female presents to ER via Ambulatory with complaints of Cough, cp Cold Symptoms. 14:20 The patient or guardian reports cough, sore throat. cp 14:20 Onset: The symptoms/episode began/occurred 4 day(s) ago. cp 14:20 Severity of symptoms: in the emergency department the symptoms are unchanged, despite cp home interventions. 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 - Infectious Disease History:: Denies. - Social history:: Smoking status: Patient denies any tobacco usage or history of. ROS: 14:25 Constitutional: Negative for fever, poor PO intake, cp 14:25 Eyes: Negative for injury, pain, redness, and discharge, cp 14:25 ENT: Positive for sore throat, 14:25 Cardiovascular: Negative for chest pain, 14:25 Respiratory: Positive for cough, Negative for shortness of breath, wheezing, 14:25 Abdomen/GI: Negative for abdominal pain, vomiting, diarrhea, constipation, 14:25 Neuro: Negative for altered mental status, 14:25 All other systems are negative, Exam: 14:30 Constitutional: The patient appears in no acute distress, alert, awake, non-toxic, well cp developed, well nourished, 14:30 Head/Face: Normocephalic, atraumatic. cp 14:30 Eyes: Periorbital structures: appear normal, Conjunctiva: normal, no exudate, no injection, Sclera: no appreciated abnormality, Lids and lashes: appear normal, bilaterally, 14:30 ENT: External ear(s): are unremarkable, Nose: is normal, Mouth: Lips: moist, Oral mucosa: moist, Posterior pharynx: Airway: no evidence of obstruction, patent, 14:30 Chest/axilla: Inspection: normal, 14:30 Cardiovascular: Rate: normal, Rhythm: regular, 14:30 Respiratory: the patient does not display signs of respiratory distress, Respirations: normal, no use of accessory muscles, no retractions, labored breathing, is not present, Breath sounds: are clear throughout, no decreased breath sounds, no stridor, no wheezing, 14:30 Abdomen/GI: Inspection: abdomen appears normal, Palpation: abdomen is soft and non-tender, in all quadrants, 14:30 Skin: no rash present. Vital Signs: 14:09 BP 129 / 79; Pulse 78; Resp 18 S; Temp 99(O); Pulse Ox 99% on R/A; Weight 44.45 kg (R); kc6 Height 4 ft. 11 in. (R); Pain 6/10; 14:09 Body Mass Index 19.79 (44.45 kg, 149.86 cm) - Percentile 25.1 % [facility] 14:09 Pain Scale: Adult kc6 MDM: 14:06 Medical Screening Exam initiated cp 14:30 Differential Diagnosis: Bronchitis Influenza Upper Respiratory Infection Viral Syndrome cp Pneumonia. 15:24 Data reviewed: vital signs, nurses notes, lab test result(s), and as a result, I will cp discharge patient. 15:24 Counseling: I had a detailed discussion with the patient and/or guardian regarding the cp historical points, exam findings, and any diagnostic results supporting the discharge/admit diagnosis, lab results, to return to the emergency department if symptoms worsen or persist or if there are any questions or concerns that arise at home. 08/22 14:15 Order name: Strep cp 08/22 14:54 Interpretation: Reviewed. 12 14:15 Order name: Influenza Screen (a \T\ B); Complete Time: 15:23 08/22 15:23 Interpretation: Reviewed. 08/22 14:15 Order name: RSV; Complete Time: 15:23 cp 08/22 14:15 Order name: SARS RAPID; Complete Time: 14:54 cp 08/22 14:54 Interpretation: Reviewed. 08/22 14:51 Order name: Throat Culture EDMS Administered Medications: 14:29 Drug: Tessalon Perle PO 100 mg PO once Route: PO; hb 15:33 Follow up: Response: No adverse reaction hb Disposition Summary: 08/22/24 15:25 Discharge Ordered Notes: Location: Home cp Problem: new cp Symptoms: have improved cp Condition: Stable cp Diagnosis - Cough cp - Acute pharyngitis, unspecified cp Followup: cp - With: Private Physician - When: 2 - 3 days - Reason: Worsening of condition Discharge Instructions: - Discharge Summary Sheet cp - Pharyngitis cp - Sore Throat cp - Cough, Adult cp Forms: - Medication Reconciliation Form cp - Antibiotic Education cp - Prescription Opioid Use cp - Patient Portal Instructions cp - Leadership Thank You Letter cp Prescriptions: - Bromfed DM 2-30-10 mg/5 mL Oral syrup - administer 10 milliliter ORAL route every 6-8 hours as needed for cough; 240 cp milliliter; Refills: 0, Product Selection Permitted - Amoxicillin 875 mg Oral Tablet - take 1 tablet ORAL route every 12 hours for 10 days; 20 tablet; Refills: 0, cp Product Selection Permitted Addendum: 08/24/2024 19:26 Co-signature as Attending Physician, Trenton Santana MD I reviewed the patient's care r n provided by the Advanced Practice Provider and agree with the diagnosis and treatment plan. Signatures: Dispatcher [employer] EDTrenton Henry MD MD rn Page, Corey, PA PA cp Leanna Lowe RN RN hb Campbell, Kaitlyn, RN RN kc6 Corrections: (The following items were deleted from the chart) 08/23 14:56 08/22 14:20 The patient or guardian reports cough, cp cp
[2024-08-22 15:56] VITALS: BP 129/79; TEMP 99; O2SAT 99
== END 2024-08-22 15:33 | disposition home or self-care (01) ==
LOC: ER 14:01
DX: R05.9 Cough, unspecified (principal); J02.9 Acute pharyngitis, unspecified; Z11.52 Encounter for screening for COVID-19
CPT/HCPCS: 36415; 87070; 87081; 87804; 87807; 87811; 99284

== ENCOUNTER 2024-11-15 13:14 | Emergency (ER) | payer OTHER ==
--- OUTSIDE RECORDS SUMMARY | 2024-11-15 13:18 | XMS REPORT | Continuity of Care Document ---
Author Name Unknown Address [address] [facility] [address] [place] [address] [facility] thconnect Address [address] [facility] [address] [place] [address] Care Team Providers Care Title One Reading Teacher Name Role Phone Elizabeth Rios Primary Care Physician DAVID RODRIGUEZ Attending Clinician Unavailable DAVID RODRIGUEZ Attending Clinician Unavailable BHAKTI DAVALOS Attending Clinician Unavailable BHAKTI DAVALOS Attending Clinician Unavailable Saba Israel MD Attending Clinician Doctor Unassigned, [place] Attending Clinician U navailable SABA ISRAEL Attending Clinician Unavail able Hailey Berumen PA-C Attending Clinician HAILEY BERUMEN Attending Clinician Unavailable BI QUICK Attending Clinician Unavail able Daron Valladares RN Attending Clinician Unavailab ponce Pcp, Patient Does Not Have A Attending Clinician Only, Ang Db Test Attending Clinician UnavailAlbert Kauffman Attending Clinician [phone] ALBERT TOTH Attending Clinician Unavailable Karl Morocho Attending Clinician [phone] DAVID RODRIGUEZ Admitting Clinician Unavailable SABA ISRAEL Admitting Clinician Unavail able Payers Payer Name Policy Type Policy Number Effective Date Expirati on Date Source MEDICAID PENDING PENDING 2023 00:00:00 [employer] [facility] [id number] 2017 00:00:00 Problems Condition Name Condition Details Condition Category Status Onset Date Resolution Date Last Treatment Date Treating Clinician Comments Source No known active problems No known active problems Disease [facility] Allergies, Adverse Reactions, Alerts Allergy Name Allergy Type Status Severity Reaction(s) Onset Date Inactive Date Treating Clinician Comments Source NO KNOWN ALLERGIE S Drug Class Active [facility] Social History Social Habit Start Date Stop Date Quantity Comments Source [facility] to SARS-CoV-2 (event) 2022-07-03 00:00:00 2022-07-13 16:28:00 Not sure [facility] History of Social function 2019-03-25 00:00:00 2019-03-25 00:00:00 [facility] Tobacco use and exposure 2018-07-15 00:00:00 2018-07-15 00:00:00 Smokeless tobacco non-user [facility] Sex Assigned At 2005 00:00:00 2005 00:00:00 [facility] Smoking Status Start Date Stop Date Source Never smoked tobacco [facility] Medications Ordered Medication Name Filled Medication Name Start Date Stop Date Current Medication? Ordering Clinician Indication Dosage Frequency Signature (SIG) Comments Components Source metronidazo le 500 mg tablet 09-29 00:00: 00 Yes 1mg Fam Almanzar cephALEXin (KEFLEX) capsule 250 mg 2022-09 04:30: 00 08-18 04:32 :00 No 250mg 250 mg, Oral, ONCE, 1 dose, On 08/17/23 at 2230, NERISSA
Re ason for Anti-Infec tive: Documented Infection< br>Documen cory Infection Site: Urine
D uration of Therapy: Other (see Comments) [facility] naproxen (NAPROSYN) tablet 250 mg 2022-09 04:15: 00 Yes 250mg 250 mg, Oral, BID MEALS, First dose on 08/17/23 at 2215, Until Discontinu ed, Routine [facility] TAKE ONE CAPSULE BY MOUTH EVERY 8 HOURS FOR 7 DAYS 2022-09 00:00: 00 Yes Fam Almanzar naproxen 250 mg tablet 2022-09 00:00: 00 Yes [id number] 250mg Take 1 tablet by mouth every 8 (eight) hours as needed for Pain (scale 1-3) or Pain (scale 4-6). [facility] cephALEXin 250 mg capsule 2022-09 00:00: 00 08-25 05:59 :00 No [id number] 250mg Take 1 capsule by mouth every 8 (eight) hours for 7 days. [facility] NaCl 0.9% (NS) IV infusion 1,000 mL 2022-09 03:15: 00 Yes 1000mL at 999 mL/hr, Intravenou s, CONTINUOUS , Starting on Sat08/13/23 at 2114, Until Discontinu ed, Routine [facility] acetaminoph en (TYLENOL) tablet 1,000 mg 2022-09 03:15: 00 08-14 03:43 :00 No 1000mg 1,000 mg, Oral, ONCE, 1 dose, On Sat08/13/23 at 2114, Routine [facility] ondansetron (ZOFRAN (PF)) injection 4 mg 2022-09 02:15: 00 08-14 03:43 :00 No 4mg 4 mg, Slow IV Push, ONCE, 1 dose, On Sat08/13/23 at 2015, NERISSA [facility] doxylamine- pyridoxine, vit B6, (DICLEGIS) 10-10 mg per tablet 2022-09 00:00: 00 Yes [id number] 2{tbl} Take 2 tablets by mouth at bedtime as needed for Nausea and Vomiting (N/V). [facility] RINSE MOUTH WITH 15ML (1 CAPFUL) FOR 30 SECONDS AM AND PM AFTER TOOTHBRUSHI NG. EXPECTORATE AFTER RINSING, DO NOT SWALLOW 2022-09 00:00: 00 11-26 00:00 :00 No 12 Fam Almanzar TAKE 1 TABLET BY MOUTH EVERY 6 HOURS NEEDED NAUSEA 02-18 00:00: 00 Yes Fam Almanzar TAKE 1 TABLET BY MOUTH EVERY 12 HOURS 6-05 00:00: 00 Yes Fam Almanzar TAKE 1 [...] 12 Fam Almanzar No known medications 2021-09 17:24: 05 No No known medication s [facility] SMZ/TMP DS [id number] 9039-1 0-18 00:00: 00 Yes Fam Almanzar sulfamethox azole-trime thoprim (BACTRIM DS) 800-160 mg per tablet 2021-09 00:00: 00 07-14 04:59 :00 No [id number] 1{tbl} Take 1 tablet by mouth in the morning and 1 tablet in the evening. Do all this for 10 days. [facility] No known medications 06-12 16:14: 29 No No known medication s [facility] TAKE 1 TABLET NOW, AND REPEAT IN 4 DAYS. - 00:00: 00 Yes 150 Fam Almanzar &lt -24 00:00: 00 Yes 100 Fam Almanzar FLUCONAZOLE 2022-0 7-18 00:00: 00 11-26 00:00 :00 No 150 Fam Almanzar METRONIDAZO L 2021-0 7-18 00:00: 00 11-26 00:00 :00 No 500 Fam Almanzar &lt 2022-0 7-13 00:00: 00 Yes Fam Almanzar TAKE 1/2 TABLET BY MOUTH EVERY 8 HOURS NEEDED FOR PAIN 2021-0 7-13 00:00: 00 Yes 800 Fam Almanzar &lt 2021-0 7-13 00:00: 00 Yes 100 Fam Almanzar &lt 2021-0 7-13 00:00: 00 No 100 &lt 2022-0 7-13 00:00: 00 No TAKE 1/2 TABLET BY MOUTH EVERY 8 HOURS NEEDED FOR PAIN 2021-0 - 00:00: 00 No 800 Dose Unknown 2021-0 5-09 00:00: 00 Yes Fam Almanzar Dose Unknown 0 5-09 00:00: 00 No Dose Unknown 0 4-11 00:00: 00 Yes Fam Almanzar Dose Unknown 0 4-11 00:00: 00 No terbinafine HCl 1 % topical cream 2021-0 4-08 00:00: 00 No 1% terbinafine HCl 1 % topical cream 0 4-08 00:00: 00 Yes 1% Fam Almanzar Dose Unknown 0 4-08 00:00: 00 Yes Fam Almanzar Dose Unknown 0 4-08 00:00: 00 No Dose Unknown 0 2-15 00:00: 00 No doxycycline monohydrate 100 mg capsule 0 2-15 00:00: 00 Yes 1mg Fam Almanzar No known medications 0 6-16 10:38: 31 No [facility] ibuprofen 200 mg tablet 0 2-11 00:00: 00 No 1mg acetaminoph en 325 mg tablet 2-11 00:00: 00 No 1mg Bromfed DM 2 mg-30 mg-10 mg/5 mL oral syrup 0 2-11 00:00: 00 No 10mg/5 mL ibuprofen 200 mg tablet 2-11 00:00: 00 Yes 1mg Fam Almanzar acetaminoph en 325 mg tablet 10-27 00:00: 00 Yes 1mg Fam Almanzar Bromfed DM 2 mg-30 mg-10 mg/5 mL oral syrup 10-27 00:00: 00 Yes 10mg/5 mL Fam Almanzar No known medications No Un raysa [facility] Immunizations Ordered Immunization Name Filled Immunization Name Date Status Comments Source HPV 2015-12-09 00:00:00 Completed [facility] Meningococcal Vaccine 2015-12-09 00:00:00 Completed [facility] TDAP 2015-12-09 00:00:00 Completed [facility] HPV 2015-12-09 00:00:00 Completed [facility] Meningococcal Vaccine 2015-12-09 00:00:00 Completed [facility] TDAP 2015-12-09 00:00:00 Completed [facility] HPV 2015-12-09 00:00:00 Completed [facility] Meningococcal Vaccine 2015-12-09 00:00:00 Completed [facility] TDAP 2015-12-09 00:00:00 Completed [facility] HPV 2015-12-09 00:00:00 Completed [facility] Meningococcal Vaccine 2015-12-09 00:00:00 Completed [facility] TDAP 2015-12-09 00:00:00 Completed [facility] HPV 2015-12-09 00:00:00 Completed [facility] Meningococcal Vaccine 2015-12-09 00:00:00 Completed [facility] TDAP 2015-12-09 00:00:00 Completed [facility] Varicella (varivax)(chicken pox) 2008-11-10 00:00:00 Completed [facility] DTAP 2008-11-10 00:00:00 Completed [facility] MMR 2008-11-10 00:00:00 Completed [facility] Polio (IPV/OPV) 2008-11-10 00:00:00 Completed [facility] DTAP 2008-11-10 00:00:00 Completed [facility] MMR 2008-11-10 00:00:00 Completed [facility] Polio (IPV/OPV) 2008-11-10 00:00:00 Completed [facility] Varicella (varivax)(chicken pox) 2008-11-10 00:00:00 Completed [facility] DTAP 2008-11-10 00:00:00 Completed [facility] MMR 2008-11-10 00:00:00 Completed [facility] Polio (IPV/OPV) 2008-11-10 00:00:00 Completed [facility] Varicella (varivax)(chicken pox) 2008-11-10 00:00:00 Completed [facility] DTAP 2008-11-10 00:00:00 Completed [facility] MMR 2008-11-10 00:00:00 Completed [facility] Polio (IPV/OPV) 2008-11-10 00:00:00 Completed [facility] Varicella (varivax)(chicken pox) 2008-11-10 00:00:00 Completed [facility] DTAP 2008-11-10 00:00:00 Completed [facility] MMR 2008-11-10 00:00:00 Completed [facility] Polio (IPV/OPV) 2008-11-10 00:00:00 Completed [facility] Varicella (varivax)(chicken pox) 2008-11-10 00:00:00 Completed [facility] DTAP Unknown Completed [facility] HPV Unknown Completed [facility] Meningococcal Vaccine Unknown Completed [facility] MMR Unknown Completed [facility] Polio (IPV/OPV) Unknown Completed [facility] TDAP Unknown Completed [facility] Varicella (varivax)(chicken pox) Unknown Completed [facility] DTAP Unknown Completed [facility] HPV Unknown Completed [facility] Meningococcal Vaccine Unknown Completed [facility] MMR Unknown Completed [facility] Polio (IPV/OPV) Unknown Completed [facility] TDAP Unknown Completed [facility] Varicella (varivax)(chicken pox) Unknown Completed [facility] DTAP Unknown Completed [facility] HPV Unknown Completed [facility] Meningococcal Vaccine Unknown Completed [facility] MMR Unknown Completed [facility] Polio (IPV/OPV) Unknown Completed [facility] TDAP Unknown Completed [facility] Varicella (varivax)(chicken pox) Unknown Completed [facility] DTAP Unknown Completed [facility] HPV Unknown Completed [facility] Meningococcal Vaccine Unknown Completed [facility] MMR Unknown Completed [facility] Polio (IPV/OPV) Unknown Completed [facility] TDAP Unknown Completed [facility] Varicella (varivax)(chicken pox) Unknown Completed [facility] DTAP Unknown Completed [facility] HPV Unknown Completed [facility] Meningococcal Vaccine Unknown Completed [facility] MMR Unknown Completed [facility] Polio (IPV/OPV) Unknown Completed [facility] TDAP Unknown Completed [facility] Varicella (varivax)(chicken pox) Unknown Completed [facility] Vital Signs Vital Name Observation Time Observation Value Comments S ource Systolic blood pressure 2023-08-18 04:31:00 101 mm[Hg] [facility] Diastolic blood pressure 2023-08-18 04:31:00 69 mm[Hg] [facility] Heart rate 2023-08-18 04:31:00 90 /min [facility] Body temperature 2023-08-18 04:31:00 37.22 Lizbeth [facility] Respiratory rate 2023-08-18 04:31:00 18 /min [facility] Oxygen saturation in Arterial blood by Pulse oximetry 2023-08-18 04:31:00 99 /min [facility] Body height 2023-08-17 23:43:00 149.9 cm [facility] Body weight 2023-08-17 23:43:00 43.999 kg [facility] BMI 2023-08-17 23:43:00 19.59 kg/m2 [facility] Body mass index (BMI) [Percentile] Per age and sex 2023-08-17 23:43:00 24.26 % [facility] Systolic blood pressure 2023-08-14 06:00:00 99 mm[Hg] [facility] Diastolic blood pressure 2023-08-14 06:00:00 68 mm[Hg] [facility] Heart rate 2023-08-14 06:00:00 90 /min [facility] Body temperature 2023-08-14 06:00:00 36.78 Lizbeth [facility] Respiratory rate 2023-08-14 06:00:00 16 /min [facility] Oxygen saturation in Arterial blood by Pulse oximetry 2023-08-14 06:00:00 98 /min [facility] Body weight 2023-08-14 00:42:00 43.954 kg [facility] BMI 2023-08-14 00:42:00 19.57 kg/m2 [facility] Body mass index (BMI) [Percentile] Per age and sex 2023-08-14 00:42:00 24.03 % [facility] Body height 2023-08-14 00:41:00 149.9 cm [facility] Systolic blood pressure 2022-07-03 21:47:00 102 mm[Hg] [facility] Diastolic blood pressure 2022-07-03 21:47:00 68 mm[Hg] [facility] Heart rate 2022-07-03 21:47:00 85 /min [facility] Body temperature 2022-07-03 21:47:00 36.56 Lizbeth [facility] Respiratory rate 2022-07-03 21:47:00 14 /min [facility] Body height 2022-07-03 21:47:00 152.4 cm [facility] Body weight 2022-07-03 21:47:00 43.182 kg [facility] BMI 2022-07-03 21:47:00 18.59 kg/m2 [facility] Body mass index (BMI) [Percentile] Per age and sex 2022-07-03 21:47:00 15.48 % [facility] Oxygen saturation in Arterial blood by Pulse oximetry 2022-07-03 21:47:00 99 /min [facility] Systolic blood pressure 2022-06-12 20:38:00 111 mm[Hg] [facility] Diastolic blood pressure 2022-06-12 20:38:00 74 mm[Hg] [facility] Heart rate 2022-06-12 20:38:00 89 /min [facility] Body temperature 2022-06-12 20:38:00 36.72 Lizbeth [facility] Respiratory rate 2022-06-12 20:38:00 18 /min [facility] Body height 2022-06-12 20:38:00 152 cm [facility] Body weight 2022-06-12 20:38:00 40.994 kg [facility] BMI 2022-06-12 20:38:00 17.74 kg/m2 [facility] Body mass index (BMI) [Percentile] Per age and sex 2022-06-12 20:38:00 7.29 % [facility] BP Systolic 2024-10-19 14:47:00 109 mm[Hg] Step hen F Yohan BP Diastolic 2024-10-19 14:47:00 68 mm[Hg] Joseph phen F Yohan Weight Measured 2024-10-19 14:47:00 96.60 pounds Fam F Yohan Height Measured 2024-10-19 14:47:00 59.00 inches Fam F Yoahn Body Temperature 2024-10-19 14:47:00 98.40 degrees Fam F Yohan Heart Rate 2024-10-19 14:47:00 73.00 /min Sanjana en F Yohan Respiratory Rate 2024-10-19 14:47:00 18.00 /min Fam F Yohan BP Systolic 2024-09-28 11:30:00 117 mm[Hg] Step hen F Yohan BP Diastolic 2024-09-28 11:30:00 68 mm[Hg] Joseph phen F Yohan Weight Measured 2024-09-28 11:30:00 98.80 pounds Fam F Yohan Height Measured 2024-09-28 11:30:00 59.00 inches Fam F Yohan Body Temperature 2024-09-28 11:30:00 98.70 degrees Fam F Yohan Heart Rate 2024-09-28 11:30:00 70.00 /min Sanjana en F Yohan Respiratory Rate 2024-09-28 11:30:00 18.00 /min Fam F Yohan BP Systolic 2024-08-19 13:33:00 129 mm[Hg] Step [...] Rate 2024-08-19 13:33:00 18.00 /min Fam F Yhoan Body Temperature 2024-04-25 13:50:00 97.70 degrees Fam F Yohan Heart Rate 2024-04-25 13:50:00 84.00 /min Sanjana en F Yohan Respiratory Rate 2024-04-25 13:50:00 16.00 /min Fam F Yohan BP Systolic 2024-04-25 13:50:00 106 mm[Hg] Step hen F Yohan BP Diastolic 2024-04-25 13:50:00 67 mm[Hg] Joseph phen F Yohan Weight Measured 2024-04-25 13:50:00 103.80 pounds Fam F Yohan Height Measured 2024-04-25 13:50:00 59.00 inches Fam F Yohan BP Systolic 2023-07-08 14:39:00 [...] en F Yohan Respiratory Rate 2021-06-01 14:34:00 Afm F Yohan BP Systolic 2019-10-27 11:16:00 107 mm[Hg] Step hen F Yohan BP Diastolic 2019-10-27 11:16:00 69 mm[Hg] Joseph phen F Yohan Weight Measured 2019-10-27 11:16:00 94.40 pounds Fam F Yohan Height Measured 2019-10-27 11:16:00 Fam F Yohan Body Temperature 2019-10-27 11:16:00 99.00 degrees Fam F Yohan Heart Rate 2019-10-27 11:16:00 75.00 /min Sanjana en F Yohan Respiratory Rate 2019-10-27 11:16:00 Fam F Yohan BP Systolic 2019-05-08 09:17:00 112 mm[Hg] Step hen F Yohan BP Diastolic 2019-05-08 09:17:00 61 mm[Hg] Joseph phen F Yohan Weight Measured 2019-05-08 09:17:00 96.20 pounds Fam Almanzar Height Measured 2019-05-08 09:17:00 59.25 inches Fam Almanzar Body Temperature 2019-05-08 09:17:00 98.30 degrees Fam Almanzar Heart Rate 2019-05-08 09:17:00 86.00 /min Sanjana Almanzar Respiratory Rate 2019-05-08 09:17:00 16.00 /min Fam Almanzar Procedures Procedure Date / Time Performed Performing Clinician Source US FIRST TRIMESTER LESS THAN 14 WEEKS WITH TRANSVAGINAL 2023-08-18 03:30:[address] [facility] TEST, SERUM 2023-08-18 01:08:00 Shannon Rodriguez [facility] ABORH CONFIRMATION (LAB ONLY) 2023-08-18 01:08:00 David Rodriguez [facility] URINALYSIS 2023-08-18 00:32:00 David Rodriguez [facility] HB ABO GROUPING 2023-08-18 00:18:00 David Rodriguez [facility] COMP. METABOLIC PANEL (13614) 2023-08-18 00:14:00 David Rodriguez [facility] TOTAL BETA HCG ASSAY 2023-08-18 00:14:00 Cande Rodriguez [facility] CBC WITH DIFF 2023-08-18 00:14:00 David Rodriguez [facility] ASSIGNMENT OF BENEFITS 2023-08-17 23:52:00 Docto r Unassigned, [place] [facility] CONSENT/REFUSAL FOR DIAGNOSIS AND TREATMENT 2023-08-17 23:33:48 Doctor Unassigned, [place] [facility] LIPASE 2023-08-14 03:32:00 Bhakti Davalos [facility] COMP. METABOLIC PANEL ([id number]) 2023-08-14 03:32:00 Bhakti Davalos [facility] CBC WITH DIFF 2023-08-14 03:32:00 Bhakti Davalos [facility] URINALYSIS 2023-08-14 03:32:00 Bhakti Davalos [facility] RAPID INFLUENZA A/B 2023-08-14 03:32:00 Bahkti Davalos [facility] COVID-19 (ID NOW RAPID TESTING) 2023-08-14 03:32:00 Bhakti Davalos [facility] NOTICE OF PRIVACY PRACTICES 2023-08-14 02:28:50 Doctor Unassigned, [place] [facility] ASSIGNMENT OF BENEFITS 2023-08-14 02:24:29 Docto r Unassigned, [place] [facility] CONSENT/REFUSAL FOR DIAGNOSIS AND TREATMENT 2023-08-14 00:24:52 Doctor Unassigned, [place] [facility] POCT MOLECULAR FLU 2022-06-12 21:00:00 Hailey Berumen [facility] POCT MOLECULAR STREP 2022-06-12 20:57:00 Hailey Berumen [facility] ASSIGNMENT OF BENEFITS 2022-06-12 20:35:53 Docto r Unassigned, [place] [facility] Plan of Care Planned Activity Planned Date Details Comments Source Goal Plan of Care Note [code = 46465-2] Goal Plan of Care Note [code = 06427-2] Goal Plan of Care Note [code = 94041-8] Goal Plan of Care Note [code = 37157-7] Goal Plan of Care Note [code = 45315-9] Goal Plan of Care Note [code = 54331-8] Goal Plan of Care Note [code = 08162-5] Goal Plan of Care Note [code = 84150-3] Goal Plan of Care Note [code = 86485-5] Goal Plan of Care Note [code = 80951-9] Goal Plan of Care Note [code = 27736-0] Encounters Start Date/Time End Date/Time Encounter Type Admission Type Attending Clinicians Care Facility Care Department Encounter ID Source 2024-10-19 14:39:18 2024-10-19 14:39:18 Outpatient [facility] [id number] Fam Almanzar 2024-10-19 00:00:00 2024-10-19 00:00:00 Outpatient Visit [facility] [id number] Fam Almanzar 2024-09-28 11:25:37 2024-09-28 11:25:37 Outpatient [facility] [id number] Fam Almanzar 2024-09-28 00:00:00 2024-09-28 00:00:00 Outpatient Visit [facility] [id number] Fam Almanzar 2024-08-19 13:19:09 2024-08-19 13:19:09 Outpatient [facility] [id number] Fam Almanzar 2024-08-19 00:00:00 2024-08-19 00:00:00 Outpatient Visit [facility] [id number] Fam Almanzar 2024-04-25 13:43:50 2024-04-25 13:43:50 Outpatient SFA [facility] [id number] Fam Almanzar 2024-04-25 00:00:00 2024-04-25 00:00:00 Outpatient Visit [facility] [id number] Fam Almanzar 2023-08-17 17:58:00 2023-08-17 22:42:00 Emergency X DAVID RODRIGUEZ [facility] ERT [id number] [facility] 2023-08-17 17:58:00 2023-08-17 22:42:00 Emergency David Rodriguez [facility] [id number] 350.1.13.10 [id number] [id number] [facility] 2023-08-13 18:45:00 2023-08-14 00:41:00 Emergency X BHAKTI DAVALOS [facility] ERT [id number] [facility] 2023-08-13 18:45:00 2023-08-14 00:41:00 Emergency Bhakti Davalos [facility] 1..840.114 350.1.13.10 4.2.7.2.686 [id number] [facility] 2023-07-08 14:40:53 2023-07-08 14:40:53 Outpatient [facility] [id number] Fam Almanzar 2023-01-28 09:47:03 2023-01-28 09:47:03 Outpatient [facility] [id number] Fam Almanzar 2022-11-13 14:41:03 2022-11-13 14:41:03 Outpatient [facility] [id number] Fam Almanzar 2022-07-30 00:00:00 2022-07-30 00:00:00 Telephone Saba [facility] 1.840.114 350.1.13.10 [id number] [id number] [facility] 2022-07-26 00:00:00 2022-07-26 00:00:00 Patient Secure Msg Doctor Unassigned, [place] [facility] 1.840.114 350.1.13.10 4.2.7.2.686 [id number] [facility] 2022-07-13 16:29:54 2022-07-13 23:59:00 Outpatient R SABA ISRAEL [facility] [id number] [facility] 2022-07-13 16:29:54 2022-07-13 23:59:00 Hospital Encounter Saba Israel [facility] 1.840.114 350.1.13.10 4.2.7.2.686 [id number] [facility] 2022-07-03 16:30:00 2022-07-03 17:02:08 Outpatient R SABA ISRAEL [facility] [id number] [facility] 2022-07-03 16:30:00 2022-07-03 17:02:08 Office Visit Saba Israel [facility] 1.2.840.114 350.1.13.10 4.2.7.2.686 [id number] [facility] 2022-06-12 16:00:00 2022-06-12 16:30:00 Office Visit Hailey Berumen [facility] 1.2.840.114 350.1.13.10 4.2.7.2.686 [id number] [facility] 2022-06-12 16:00:00 2022-06-12 16:00:00 Outpatient HAILEY [facility] [facility] [id number] [facility] 2022-06-12 00:00:00 2022-06-12 00:00:00 Orders Only Doctor Unassigned, [place] [facility] 1.2.840.114 350.1.13.10 4.2.7.2.686 [id number] [facility] 2022-03-28 00:00:00 2022-03-28 00:00:00 Outpatient Visit [id number] 2021-11-02 11:20:00 2021-11-02 11:20:00 Outpatient BI WOOT[facility] [id number] [facility] 2021-11-02 11:00:00 2021-11-02 11:00:00 Outpatient BI [facility] [id number] [facility] 2021-10-19 14:00:00 2021-10-19 14:00:00 Outpatient BI [place] [facility] [id number] [facility] 2021-05-29 00:00:00 2021-05-29 00:00:00 Patient Secure Msg Doctor Unassigned, [place] [facility] 1.2.840.114 350.1.13.10 4.2.7.2.686 [id number] [facility] 2021-05-29 00:00:00 2021-05-29 00:00:00 Letter (Out) [place] [facility] 1.2.840.114 350.1.13.10 4.2.7.2.686 [id number] [facility] 2021-05-29 00:00:00 2021-05-29 00:00:00 Letter (Out) [place], [facility] 1.2.840.114 350.1.13.10 4.2.7.2.686 [id number] [facility] 2021-05-29 00:00:00 2021-05-29 00:00:00 Telephone Pcp, Patient Does Not Have A [facility] 1.2.840.114 350.1.13.10 4.2.7.2.686 [id number] [facility] 2021-05-28 15:00:00 2021-05-28 15:00:00 Outpatient R [facility] [id number] [facility] 2021-05-28 13:21:41 2021-05-28 13:36:41 Laboratory Only Only, Ang Db Test Ry T[place] [facility] 1.2.840.114 350.1.13.10 4.2.7.2.686 [id number] [facility] 2021-05-28 13:25:00 2021-05-28 13:25:00 Outpatient R ALBERT TOTH [facility] [id number] [facility] 2021-03-01 09:20:00 2021-03-01 09:20:00 Outpatient R [facility] [id number] [facility] 2021-01-27 00:00:00 2021-01-27 00:00:00 Patient Secure [place] [facility] 1.2.840.114 350.1.13.10 4.2.7.2.686 [id number] [facility] 2021-01-25 18:40:00 2021-01-25 18:40:00 Outpatient R [facility] [id number] [facility] Results Test Description Test Time Test Comments Results Result Co mments Source VAGINAL PATHOGENS DNA [id number] 15:05:58* Test Item Value Reference Range Interpretation Comme nts ROSA SPECIES (test code = ) NEGATIVE NEGATIVE G. VAGINALIS (test code = 10857) POSITIVE NEGATIVE A T. VAGINALIS (test code = 30075) NEGATIVE NEGATIVE Note: The [employer] VPIII Microbial Identification Testis a DNA probe test intended for use in the detectionand identification of Rosa species, Gardnerellavaginalis and Trichomonas vaginalis nucleic acid. UNLESS OTHERWISE INDICATED, ALL TESTING PERFORMED AT [facility] [address] [place] [address] MEAT COUNTER CLERK: NO MELGAR M.D. CLIA NUMBER [id number] [facility] [place]. [id number] VAGINAL PATHOGENS DNA [id number] 00:00:00* Test Item Value Reference Range Interpretation Comme nts ROSA SPECIES (test code = ) NEGATIVE G. VAGINALIS (test code = 36718) POSITIVE T. VAGINALIS (test code = 76194) NEGATIVE Fam Unger AustinCT/NG, NAAT, [id number] 22:24:35* Test Item Value Reference Range Interpretation Comme nts CHLAMYDIA, NAAT, URINE (test code = 41667) NEGATIVE NEGATIVE Testing is perfo rmed with [employer] 6800/8800 systems usingreal-time polymerase chain reaction (PCR) method. A negative result does not exclude low level infection, specimensampling error, or collection error. GONORRHEA, NAAT, URINE (test code = 50503) NEGATIVE NEGATIVE Testing is perfo rmed with Velia SATISH 6800/8800 systems usingreal-time polymerase chain reaction (PCR) method. A negative result does not exclude low level infection, specimensampling error, or collection error. TRICHOMONAS, NAAT, [id number] 22:08:05* Test Item Value Reference Range Interpretation Comme nts TRICHOMONAS, NAAT, URINE (test code = 99470) NEGATIVE NEGATIVE Testing is perfo rmed with Velia SATISH 6800/8800 method usingreal-time polymerase chain reaction (PCR) method. A negative result does not exclude low level infection, specimensampling error, or collection error. HIV 1/2 4TH GEN, RFLX [id number] 04:38:17* Test Item Value Reference Range Interpretation Comme nts HIV 1/2 4TH GEN, RFLX CONF ( test code = 3514) NON-REACTIVE NON-REACTIVE HEPATITIS PANEL, [id number] 04:38:17* Test Item Value Reference Range Interpretation [...] infection. INTERPRETATION HEPATITIS B: (test code = 35841) (NOTE) Hepatitis B sero logy shows no evidence of past exposure to orcurrent infection with hepatitis B virus. No evidence of hepatitis Bimmunization is identified. INTERPRETATION HEPATITIS C: (test code = 57505) (NOTE) Hepatitis C sero logy shows no evidence of exposure to hepatitisC virus at this time. It can take up to 12 months after exposure tothe hepatitis C virus for antibodies to become detectable in the blood in certain patients. HEPATITIS A [id number] 04:38:17* Test Item Value Reference Range Interpretation Comme nts HEPATITIS A IgM (test code = 2728) NON-REACTIVE NON-REACTIVE UNLESS OTHERW ISE INDICATED, ALL TESTING PERFORMED AT [facility] [address] [place] [address] MEAT COUNTER CLERK: NO MELGAR M.D. IA NUMBER [id number] [facility] [place]. [id number] 03:24:20* Test Item Value Reference Range Interpretation Comme nts RPR RESULT (test code = 3501) NON-REACTIVE NON-REACTIVE RPR TITER (test code = 3500) NOT INDIC. TITER NOT INDIC. HIV 1/2 4TH GEN, RFLX [id number] 00:00:00* Test Item Value Reference Range Interpretation Comme nts HIV 1/2 4TH GEN, RFLX CONF ( test code = 3514) NON-REACTIVE Fam AlmanzarTRICHOMONAS, URINE, [id number] 00:00:00* Test Item Value Reference Range Interpretation Comme nts TRICHOMONAS, NAAT, URINE (te st code = 47099) NEGATIVE Fam [id number] 00:00:00* Test Item Value Reference Range Interpretation Comme nts RPR RESULT (test code = 3501) NON-REACTIVE RPR TITER (test code = 3500) NOT INDIC. TITER Fam Unger AustinHEPATITIS PROFILE (A,B,C)2024-08-20 00:00:00* Test Item Value Reference Range Interpretation Comme nts HEPATITIS A TOTAL AB (test c ode = 2725) REACTIVE HEPATITIS B SURF AG (test co de = 2739) NON-REACTIVE HEP B CORE TOTAL AB (test co de = 2729) NON-REACTIVE HEPATITIS B SURFACE AB (test code = 2737) NON-REACTIVE HEPATITIS C ANTIBODY (test c ode = 4675) NON-REACTIVE INTERPRETATION HEPATITIS A: (test code = 2552) (NOTE) INTERPRETATION HEPATITIS B: (test code = 42123) (NOTE) INTERPRETATION HEPATITIS C: (test code = 95295) (NOTE) Fam Unger AustinHEPATITIS A IgM [REFLEX]2024-08-20 00:00:00* Test Item Value Reference Range Interpretation Comme nts HEPATITIS A IgM (test code = 2728) NON-REACTIVE Fam AlmanzarCT/NG, NAAT, [id number] 00:00:00* Test Item Value Reference Range Interpretation Comme nts CHLAMYDIA, NAAT, URINE (test code = 42600) NEGATIVE GONORRHEA, NAAT, URINE (test code = 29277) NEGATIVE Fam AlmanzarHIV 1/2 4TH GEN, RFLX [id number] 00:00:00* Test Item Value Reference Range Interpretation Comme nts HIV 1/2 4TH GEN, RFLX CONF ( test code = 3514) NON-REACTIVE Fam AlmanzarTRICHOMONAS, URINE, [id number] 00:00:00* Test Item Value Reference Range Interpretation Comme nts TRICHOMONAS, NAAT, URINE (te st code = 96074) NEGATIVE Fam [id number] 00:00:00* Test Item Value Reference Range Interpretation Comme nts RPR RESULT (test code = 3501) NON-REACTIVE RPR TITER (test code = 3500) NOT INDIC. TITER Fam AlmanzarHEPATITIS PROFILE (A,B,C)2024-08-20 00:00:00* Test Item Value Reference Range Interpretation Comme nts HEPATITIS A TOTAL AB (test c ode = 2725) REACTIVE HEPATITIS B SURF AG (test co de = 2739) NON-REACTIVE HEP B CORE TOTAL AB (test co de = 2729) NON-REACTIVE HEPATITIS B SURFACE AB (test code = 2737) NON-REACTIVE HEPATITIS C ANTIBODY (test c ode = 4675) NON-REACTIVE INTERPRETATION HEPATITIS A: (test code = 2552) (NOTE) INTERPRETATION HEPATITIS B: (test code = 32527) (NOTE) INTERPRETATION HEPATITIS C: (test code = 63071) (NOTE) Fam AlmanzarHEPATITIS A IgM [REFLEX]2024-08-20 00:00:00* Test Item Value Reference Range Interpretation Comme nts HEPATITIS A IgM (test code = 2728) NON-REACTIVE Fam Unger AustinCT/NG, NAAT, [id number] 00:00:00* Test Item Value Reference Range Interpretation Comme nts CHLAMYDIA, NAAT, URINE (test code = 04603) NEGATIVE GONORRHEA, NAAT, URINE (test code = 19096) NEGATIVE Fam Unger AustinCT/NG, NAAT, [id number] 15:25:07* Test Item Value Reference Range Interpretation Comme nts CHLAMYDIA, NAAT, URINE (test code = 95790) NEGATIVE NEGATIVE Testing is perfo rmed with Velia SATISH 6800/8800 systems usingreal-time polymerase chain reaction (PCR) method. A negative result does not exclude low level infection, specimensampling error, or collection error. GONORRHEA, NAAT, URINE (test code = 31691) NEGATIVE NEGATIVE Testing is perfo rmed with Velia SATISH 6800/8800 systems usingreal-time polymerase chain reaction (PCR) method. A negative result does not exclude low level infection, specimensampling error, or collection error. UNLESS OTHERWISE INDICATED, ALL TESTING PERFORMED AT [facility] [address] [place] [address] MEAT COUNTER CLERK: NO MELGAR M.D. CLIA NUMBER [id number] [facility] [place]. [id number] CT/NG, NAAT, [id number] 00:00:00* Test Item Value Reference Range Interpretation Comme nts CHLAMYDIA, NAAT, URINE (test code = 02127) NEGATIVE GONORRHEA, NAAT, URINE (test code = 99828) NEGATIVE Fam F AustinCT/NG, NAAT, [id number] 00:00:00* Test Item Value Reference Range Interpretation Comme nts CHLAMYDIA, NAAT, URINE (test code = 43632) NEGATIVE GONORRHEA, NAAT, URINE (test code = 29014) NEGATIVE Fam F AustinCT/NG, NAAT, [id number] 00:00:00* Test Item Value Reference Range Interpretation Comme nts CHLAMYDIA, NAAT, URINE (test code = 74651) NEGATIVE GONORRHEA, NAAT, URINE (test code = 64985) NEGATIVE Fam F AustinCT/NG, NAAT, [id number] 00:00:00* Test Item Value Reference Range Interpretation Comme nts CHLAMYDIA, NAAT, URINE (test code = 47389) NEGATIVE GONORRHEA, NAAT, URINE (test code = 47748) NEGATIVE Fam F AustinPREGNANCY TEST, [id number] 02:25:38* Test Item Value Reference Range Interpretation Comme nts PREG SERUM (test code = 1098963229) Positive BEE (test code = BEE) Positive greater t jackson or equal to 10 IU/L hCG. [facility] Only)2023-08-18 01:40:00* Test Item Value Reference Range Interpretation Comme nts ABO & RH (test code = 20) O Positive [facility] BETA HCG [id number] 01:29:04* Test Item Value Reference Range Interpretation Comme nts BETA HCG (test code = 2054156531) 41419.00 See_Comment [Automated [employer]] The system which generated this result transmitted reference range: Non- female and male patients: <5 mIU/mL. The reference range was not used to interpret this result as normal/abnormal. BEE (test code = BEE) Gestational Age ?Range (mIU/mL) 1-10 ?Weeks ?[id number] Weeks ?18238-72568533-64 Weeks ?6736-48193860-12 Weeks ?1531-051182 Biotin has been reported to cause a negative bias, interpret results relative to patient's use of biotin. [facility]. METABOLIC PANEL (37028)2023-08-18 00:43:44* Test Item Value Reference Range Interpretation Comme nts NA (test code = 8879818751) 138 mmol/L 135-145 K (test code = 7559657820) 3.8 mmol/L 3.5-5.0 CL (test code = 8658525181) 104 mmol/L 98-108 CO2 TOTAL (test code = 3634359417) 27 mmol/L 23-31 AGAP (test code = 0790605089) 7 2-16 BUN (test code = 8997466760) 9 mg/dL 7-23 GLUCOSE (test code = 2822926720) 92 mg/dL 70-110 CREATININE (test code = 3684929581) 0.46 mg/dL 0.50-1.04 L TOTAL BILI (test code = 1753777588) 0.5 mg/dL 0.1-1.1 CALCIUM (test code = 3293558618) 9.6 mg/dL 8.6-10.6 T PROTEIN (test code = 5925180752) 7.3 g/dL 6.3-8.2 ALBUMIN (test code = 8473266512) 4.2 g/dL 3.5-5.0 ALK PHOS (test code = 1357243474) 66 U/L 34-122 ALTv (test code = 1742-6) 34 U/L 5-35 AST(SGOT) (test code = 9614374183) 44 U/L 13-40 H eGFR (test code = 63633-6) 142.5 mL/min/1.73m2 CKD-EPI eGFR (2020). Assuming creatinine has been stable day-to-day for at least three months, the eGFR indicates Category G1 (>= 90 mL/min/1.73 m2) Lab Interpretation (test code = 13252-4) Abnormal [facility] WITH [id number] 00:31:46* Test Item Value Reference Range Interpretation Comme nts WBC (test code = 6690-2) 11.06 See_Comment [Automated [employer]] The system which generated this result transmitted reference range: 4.50 - 13.50 10*3/?L. The reference range was not used to interpret this result as normal/abnormal. RBC (test code = 789-8) 4.63 See_Comment [Automated [employer]] The system which generated this result [...] 33.2 g/dL 32.0-36.0 RDW-SD (test code = 82061-6) 39.4 fL 38.5-49.0 RDW-CV (test code = 788-0) 13.0 % 11.5-14.0 PLT (test code = 777-3) 287 See_Comment [Automated [employer]] The system which generated this result transmitted reference range: 135 - 361 10*3/?L. The reference range was not used to interpret this result as normal/abnormal. MPV (test code = 27661-8) 10.7 fL 9.4-13.3 NRBC/100 WBC (test code = 3613054368) 0.0 See_Comment [Automated me ssage] The system which generated this result transmitted reference range: 0.0 - 10.0 /100 WBCs. The reference range was not used to interpret this result as normal/abnormal. NRBC x10^3 (test code = 0680585174) See_Comment [Automated messa ge] The system which generated this result transmitted reference range: 10*3/?L. The reference range was not used to interpret this result as normal/abnormal. GRAN MAT (NEUT) % (test code = 770-8) 73.7 % IMM GRAN % (test code = 0646837651) 0.30 % LYMPH % (test code = 736-9) 15.9 % MONO % (test code = 5905-5) 8.3 % EOS % (test code = 713-8) 1.5 % BASO % (test code = 706-2) 0.3 % GRAN MAT x10^3(ANC) (test code = 3288138958) 8.15 10*3/uL 1.50-10.30 IMM GRAN x10^3 (test code = 0520639152) 0.03 10*3/uL 0.00-0.06 LYMPH x10^3 (test code = 731-0) 1.76 10*3/uL 0.70-7.40 MONO x10^3 (test code = 742-7) 0.92 10*3/uL 0.00-0.50 H EOS x10^3 (test code = 711-2) 0.17 10*3/uL 0.00-0.40 BASO x10^3 (test code = 704-7) 0.03 10*3/uL 0.00-0.10 Lab Interpretation (test code = 58523-5) Abnormal [facility] - ONCE [id number] 00:28:00 * Test Item Value Reference Range Interpretation Comme nts ABO & RH (test code = 20) O Positive IAT (test code = 1185) Negative [facility] HospitalCT/NG, NAAT, [id number] 20:38:18* Test Item Value Reference Range Interpretation Comme nts CHLAMYDIA, NAAT, URINE (test code = 92733) NEGATIVE NEGATIVE Testing is perfo rmed with Velia SATISH 6800/8800 systems usingreal-time polymerase chain reaction (PCR) method. A negative result does not exclude low level infection, specimensampling error, or collection error. GONORRHEA, NAAT, URINE (test code = 06627) NEGATIVE NEGATIVE Testing is perfo rmed with Velia SATISH 6800/8800 systems usingreal-time polymerase chain reaction (PCR) method. A negative result does not exclude low level infection, specimensampling error, or collection error. VAGINAL PATHOGENS DNA [id number] 15:19:00* Test Item Value Reference Range Interpretation Comme [facility] ROSA SPECIES (test code = 60326) NEGATIVE NEGATIVE G. VAGINALIS (test code = 01648) POSITIVE NEGATIVE A T. VAGINALIS (test code = 62075) NEGATIVE NEGATIVE Note: The [employer] VPIII Microbial Identification Testis a DNA probe test intended for use in the detectionand identification of Rosa species, Gardnerellavaginalis and Trichomonas vaginalis nucleic acid. HERPES SIMPLEX AB, [id number] 13:00:18* Test Item Value Reference Range Interpretation [facility] HERPES SIMPLEX AB, IgM (test code = 08089) 0.70 INDEX SEE BELOW INTERPRETATION U NITS RANGE ----- ----- NEGATIVE INDEX <=0.89 EQUIVOCAL INDEX 0.90-1.09 POSITIVE INDEX >=1.10 HERPES SIMPLEX 1/2 AB, IgG [id number] 06:53:36* Test Item Value Reference Range Interpretation [facility] HERPES SIMPLEX 1 AB, IgG (test code = 17267) 0.507 INDEX SEE BELOW INTERPRETATION U NITS RANGE ----- ----- NON-REACTIVE INDEX <1.000 REACTIVE INDEX >=1.000 HERPES SIMPLEX 2 AB, IgG (test code = 20890) 0.076 INDEX SEE BELOW INTERPRETATION UNITS RANGE ----- ----- NON-REACTIVE INDEX <1.000 REACTIVE INDEX >=1.000 HIV 1/2 4TH GEN, RFLX [id number] 06:53:36* Test Item Value Reference Range Interpretation Comme nts HIV 1/2 4TH GEN, RFLX CONF ( test code = 3514) NON-REACTIVE NON-REACTIVE HEPATITIS PANEL, [id number] 06:53:36* Test Item Value Reference Range Interpretation Comme nts HEPATITIS A IgM (test code = 22881) NON-REACTIVE NON-REACTIVE HEPATITIS B CORE IgM (test code = 4644) NON-REACTIVE NON-REACTIVE HEPATITIS B SURF AG (test code = 2739) NON-REACTIVE NON-REACTIVE HEPATITIS C ANTIBODY (test code = 4675) NON-REACTIVE NON-REACTIVE INTERPRETATION HEPATITIS A: (test code = 2552) (NOTE) Hepatitis A serology shows no evidence of acute hepatitis A. INTERPRETATION HEPATITIS B: (test code = 48114) (NOTE) Hepatitis B serology shows no evidence of acute hepatitis B andno indication of exposure to hepatitis B virus in the previous hina eight months. INTERPRETATION HEPATITIS C: (test code = 57067) (NOTE) Hepatitis C serology shows no evidence of exposure to hepatitisC virus at this time. It can take up to 12 months after exposure tothe hepatitis C virus for antibodies to become detectable in the blood in certain patients. [id number] 04:02:01* Test Item Value Reference Range Interpretation Comme nts RPR RESULT (test code = 3501) NON-REACTIVE NON-REACTIVE RPR TITER (test code = 3500) NOT INDIC. TITER NOT INDIC. UNLESS OTHERWISE INDICATED, ALL TESTING PERFORMED AT [facility] [address] [place] [address] MEAT COUNTER CLERK: NO MELGAR M.D. IA NUMBER [id number] [facility] [place]. [id number] HERPES SIMPLEX 1/2 [id number] 00:00:00* Test Item Value Reference Range Interpretation Comme nts HERPES SIMPLEX 1 AB, IgG (te st code = 16730) 0.507 INDEX HERPES SIMPLEX 2 AB, IgG (te st code = 53160) 0.076 INDEX Fam AlmanzarVAGINAL PATHOGENS DNA [id number] 00:00:00* Test Item Value Reference Range Interpretation Comme nts ROSA SPECIES (test code = 98918) NEGATIVE G. VAGINALIS (test code = 84728) POSITIVE T. VAGINALIS (test code = 69513) NEGATIVE Fam AlmanzarHIV 1/2 4TH GEN, RFLX [id number] 00:00:00* Test Item Value Reference Range Interpretation Comme nts HIV 1/2 4TH GEN, RFLX CONF ( test code = 3514) NON-REACTIVE Fam AlmanzarACUTE HEPATITIS [id number] 00:00:00* Test Item Value Reference Range Interpretation Comme nts HEPATITIS A IgM (test code = 23668) NON-REACTIVE HEPATITIS B CORE IgM (test c ode = 4644) NON-REACTIVE HEPATITIS B SURF AG (test co de = 2739) NON-REACTIVE HEPATITIS C ANTIBODY (test c ode = 4675) NON-REACTIVE INTERPRETATION HEPATITIS A: (test code = 2552) (NOTE) INTERPRETATION HEPATITIS B: (test code = 64713) (NOTE) INTERPRETATION HEPATITIS C: (test code = 64950) (NOTE) Fam AlmanzarCT/NG, TMA, [id number] 00:00:00* Test Item Value Reference Range Interpretation Comme nts CHLAMYDIA, NAAT, URINE (test code = 97450) NEGATIVE GONORRHEA, NAAT, URINE (test code = 97354) NEGATIVE Fam [id number] 00:00:00* Test Item Value Reference Range Interpretation Comme nts RPR RESULT (test code = 3501) NON-REACTIVE RPR TITER (test code = 3500) NOT INDIC. TITER Fam AlmanzarHERPES SIMPLEX [id number] 00:00:00* Test Item Value Reference Range Interpretation Comme nts HERPES SIMPLEX AB, IgM (test code = 67917) 0.70 INDEX Fam AlmanzarHERPES SIMPLEX 1/2 [id number] 00:00:00* Test Item Value Reference Range Interpretation Comme nts HERPES SIMPLEX 1 AB, IgG (te st code = 97320) 0.507 INDEX HERPES SIMPLEX 2 AB, IgG (te st code = 59120) 0.076 INDEX Fam AlmanzarVAGINAL PATHOGENS DNA [id number] 00:00:00* Test Item Value Reference Range Interpretation Comme nts ROSA SPECIES (test code = 77676) NEGATIVE G. VAGINALIS (test code = 33648) POSITIVE T. VAGINALIS (test code = 16573) NEGATIVE Fam AlmanzarHIV 1/2 4TH GEN, RFLX [id number] 00:00:00* Test Item Value Reference Range Interpretation Comme nts HIV 1/2 4TH GEN, RFLX CONF ( test code = 3514) NON-REACTIVE Fam AlmanzarACUTE HEPATITIS [id number] 00:00:00* Test Item Value Reference Range Interpretation Comme nts HEPATITIS A IgM (test code = 72805) NON-REACTIVE HEPATITIS B CORE IgM (test c ode = 4644) NON-REACTIVE HEPATITIS B SURF AG (test co de = 2739) NON-REACTIVE HEPATITIS C ANTIBODY (test c ode = 4675) NON-REACTIVE INTERPRETATION HEPATITIS A: (test code = 2552) (NOTE) INTERPRETATION HEPATITIS B: (test code = 79276) (NOTE) INTERPRETATION HEPATITIS C: (test code = 39788) (NOTE) Fam AlmanzarCT/NG, TMA, [id number] 00:00:00* Test Item Value Reference Range Interpretation Comme nts CHLAMYDIA, NAAT, URINE (test code = 03773) NEGATIVE GONORRHEA, NAAT, URINE (test code = 88697) NEGATIVE Fam [id number] 00:00:00* Test Item Value Reference Range Interpretation Comme nts RPR RESULT (test code = 3501) NON-REACTIVE RPR TITER (test code = 3500) NOT INDIC. TITER Fam AlmanzarHERPES SIMPLEX [id number] 00:00:00* Test Item Value Reference Range Interpretation Comme nts HERPES SIMPLEX AB, IgM (test code = 76915) 0.70 INDEX Fam AlmanzarHERPES SIMPLEX 1/2 [id number] 00:00:00* Test Item Value Reference Range Interpretation Comme nts HERPES SIMPLEX 1 AB, IgG (te st code = 02339) 0.507 INDEX HERPES SIMPLEX 2 AB, IgG (te st code = 43031) 0.076 INDEX Fma AlmanzarVAGINAL PATHOGENS DNA [id number] 00:00:00* Test Item Value Reference Range Interpretation Comme nts ROSA SPECIES (test code = 40401) NEGATIVE G. VAGINALIS (test code = 57086) POSITIVE T. VAGINALIS (test code = 78272) NEGATIVE Fam AlmanzarHIV 1/2 4TH GEN, RFLX [id number] 00:00:00* Test Item Value Reference Range Interpretation Comme nts HIV 1/2 4TH GEN, RFLX CONF ( test code = 3514) NON-REACTIVE Fam AlmanzarACUTE HEPATITIS [id number] 00:00:00* Test Item Value Reference Range Interpretation Comme nts HEPATITIS A IgM (test code = 73224) NON-REACTIVE HEPATITIS B CORE IgM (test c ode = 4644) NON-REACTIVE HEPATITIS B SURF AG (test co de = 2739) NON-REACTIVE HEPATITIS C ANTIBODY (test c ode = 4611) NON-REACTIVE INTERPRETATION HEPATITIS A: (test code = 2552) (NOTE) INTERPRETATION HEPATITIS B: (test code = 44894) (NOTE) INTERPRETATION HEPATITIS C: (test code = 58562) (NOTE) Fam AlmanzarCT/NG, TMA, [id number] 00:00:00* Test Item Value Reference Range Interpretation Comme nts CHLAMYDIA, NAAT, URINE (test code = 03998) NEGATIVE GONORRHEA, NAAT, URINE (test code = 00693) NEGATIVE Fam [id number] 00:00:00* Test Item Value Reference Range Interpretation Comme nts RPR RESULT (test code = 3501) NON-REACTIVE RPR TITER (test code = 3500) NOT INDIC. TITER Fam AlmanzarHERPES SIMPLEX [id number] 00:00:00* Test Item Value Reference Range Interpretation Comme nts HERPES SIMPLEX AB, IgM (test code = 88296) 0.70 INDEX Fam AlmanzarHERPES SIMPLEX 1/2 [id number] 00:00:00* Test Item Value Reference Range Interpretation Comme nts HERPES SIMPLEX 1 AB, IgG (te st code = 33627) 0.507 INDEX HERPES SIMPLEX 2 AB, IgG (te st code = 64846) 0.076 INDEX Fam AlmanzarVAGINAL PATHOGENS DNA [id number] 00:00:00* Test Item Value Reference Range Interpretation Comme nts ROSA SPECIES (test code = 81356) NEGATIVE G. VAGINALIS (test code = [address]) POSITIVE T. VAGINALIS (test code = 85443) NEGATIVE Fam AlmanzarHIV 1/2 4TH GEN, RFLX [id number] 00:00:00* Test Item Value Reference Range Interpretation Comme nts HIV 1/2 4TH GEN, RFLX CONF ( test code = 3514) NON-REACTIVE Fam AlmanzarACUTE HEPATITIS [id number] 00:00:00* Test Item Value Reference Range Interpretation Comme nts HEPATITIS A IgM (test code = 08879) NON-REACTIVE HEPATITIS B CORE IgM (test c ode = 4644) NON-REACTIVE HEPATITIS B SURF AG (test co de = 2739) NON-REACTIVE HEPATITIS C ANTIBODY (test c ode = 4682) NON-REACTIVE INTERPRETATION HEPATITIS A: (test code = 2552) (NOTE) INTERPRETATION HEPATITIS B: (test code = 62781) (NOTE) INTERPRETATION HEPATITIS C: (test code = 43994) (NOTE) Fam AlmanzarCT/NG, TMA, [id number] 00:00:00* Test Item Value Reference Range Interpretation Comme nts CHLAMYDIA, NAAT, URINE (test code = 06469) NEGATIVE GONORRHEA, NAAT, URINE (test code = 00360) NEGATIVE Fam [id number] 00:00:00* Test Item Value Reference Range Interpretation Comme nts RPR RESULT (test code = 3501) NON-REACTIVE RPR TITER (test code = 3500) NOT INDIC. TITER Fam AlmanzarHERPES SIMPLEX [id number] 00:00:00* Test Item Value Reference Range Interpretation Comme nts HERPES SIMPLEX AB, IgM (test code = 04607) 0.70 INDEX Fam AlmanzarPOCT MOLECULAR [id number] 21:12:14* Test Item Value Reference Range Interpretation Comme nts POCT Molecular FluA (test co de = 23898-1) Negative Negative POCT Molecular FluB (test co de = 59020-1) Negative Negative Lab Interpretation (test cod e = 19009-1) Normal [facility] MOLECULAR [id number] 21:12:14* Test Item Value Reference Range Interpretation Comme nts POCT Molecular FluA (test co de = 15521-3) Negative Negative POCT Molecular FluB (test co de = 29434-0) Negative Negative Lab Interpretation (test cod e = 78727-1) Normal [facility] MOLECULAR [id number] 21:12:14* Test Item Value Reference Range Interpretation Comme nts POCT Molecular FluA (test co de = 81264-9) Negative Negative POCT Molecular FluB (test co de = 32338-2) Negative Negative Lab Interpretation (test cod e = 68707-5) Normal [facility] MOLECULAR [id number] 21:04:45* Test Item Value Reference Range Interpretation Comme nts POCT Molecular Strep (test c ode = 39956-6) Negative Negative Lab Interpretation (test cod e = 09874-5) Normal [facility] MOLECULAR [id number] 21:04:45* Test Item Value Reference Range Interpretation Comme nts POCT Molecular Strep (test c ode = 25755-3) Negative Negative Lab Interpretation (test cod e = 52394-4) Normal [facility] MOLECULAR [id number] 21:04:45* Test Item Value Reference Range Interpretation Comme nts POCT Molecular Strep (test c ode = 86572-8) Negative Negative Lab Interpretation (test cod e = 42432-9) [facility]AT, [id number] 10:28:27* Test Item Value Reference Range Interpretation Comme nts GONORRHEA, NAAT (test code = 78417) NEGATIVE NEGATIVE IMPORTANT NO ISRA[place]: SEE ANNOUNCEMENT AT [email or web address] [email or web address] Note: Assay methodology is nucleic acid amplification by staff combat information center officer mediated amplification (TMA) utilizing the Aptima Combo 2 Assay. CHLAMYDIA, NAAT (test code = 71115) NEGATIVE NEGATIVE IMPORTANT NO [place]RA[place]: SEE ANNOUNCEMENT AT [email or web address] Note: Assay methodology is nucleic acid amplification by staff combat information center officer mediated amplification (TMA) utilizing the Aptima Combo 2 Assay. GC AND CHLAMYDIA, AMPLIFIED, [id number] 00:00:00* Test Item Value Reference Range Interpretation Comme nts GONORRHEA, NAAT (test code = 93710) NEGATIVE CHLAMYDIA, NAAT (test code = 75621) NEGATIVE Fam F AustinGC AND CHLAMYDIA, AMPLIFIED, [id number] 00:00:00* Test Item Value Reference Range Interpretation Comme nts GONORRHEA, NAAT (test code = 37596) NEGATIVE CHLAMYDIA, NAAT (test code = 53107) NEGATIVE Fam F AustinGC AND CHLAMYDIA, AMPLIFIED, [id number] 00:00:00* Test Item Value Reference Range Interpretation Comme nts GONORRHEA, NAAT (test code = 55623) NEGATIVE CHLAMYDIA, NAAT (test code = 48017) NEGATIVE Fam AlmanzarGC AND CHLAMYDIA, AMPLIFIED, [id number] 00:00:00* Test Item Value Reference Range Interpretation Comme nts GONORRHEA, NAAT (test code = 70368) NEGATIVE CHLAMYDIA, NAAT (test code = 53076) NEGATIVE Fam Unger AustinVAGINAL PATHOGENS DNA [id number] 13:18:05* Test Item Value Reference Range Interpretation Comme nts ROSA SPECIES (test code = 39110) POSITIVE NEGATIVE A G. VAGINALIS (test code = 31004) POSITIVE NEGATIVE A T. VAGINALIS (test code = 92065) NEGATIVE NEGATIVE UNLESS OTHERWISE INDICATED, ALL TESTING PERFORMED [facility] [employer] [address] [place] [address] MEAT COUNTER CLERK: CALVIN OLIVIA M.D. IA NUMBER [id number] [facility] [place]. [id number] VAGINAL PATHOGENS DNA [id number] 00:00:00* Test Item Value Reference Range Interpretation Comme nts ROSA SPECIES (test code = ) POSITIVE G. VAGINALIS (test code = 31088) POSITIVE T. VAGINALIS (test code = 77741) NEGATIVE Fam Unger AustinVAGINAL PATHOGENS DNA [id number] 00:00:00* Test Item Value Reference Range Interpretation Comme nts ROSA SPECIES (test code = 76650) POSITIVE G. VAGINALIS (test code = 90911) POSITIVE T. VAGINALIS (test code = 30501) NEGATIVE Fam Unger AustinVAGINAL PATHOGENS DNA [id number] 00:00:00* Test Item Value Reference Range Interpretation Comme nts ROSA SPECIES (test code = 36142) POSITIVE G. VAGINALIS (test code = 11288) POSITIVE T. VAGINALIS (test code = 38623) NEGATIVE Fam Unger AustinVAGINAL PATHOGENS DNA [id number] 00:00:00* Test Item Value Reference Range Interpretation Comme nts ROSA SPECIES (test code = 15280) POSITIVE G. VAGINALIS (test code = 54914) POSITIVE T. VAGINALIS (test code = 11525) NEGATIVE Fam F AustinCT/NG, NAAT, [id number] 12:06:45* Test Item Value Reference Range Interpretation Comme nts GONORRHEA, NAAT (test code = 46867) NEGATIVE NEGATIVE IMPORTANT NO [place]RA[place]: SEE ANNOUNCEMENT AT [email or web address] [email or web address] Note: Assay methodology is nucleic acid amplification by staff combat information center officer mediated amplification (TMA) utilizing the Aptima Combo 2 Assay. CHLAMYDIA, NAAT (test code = 72887) NEGATIVE NEGATIVE IMPORTANT NO [place]RA[place]: SEE ANNOUNCEMENT AT [email or web address] [email or web address] Note: Assay methodology is nucleic acid amplification by staff combat information center officer mediated amplification (TMA) utilizing the Aptima Combo 2 Assay. UNLESS OTHERWISE INDICATED, ALL TESTING PERFORMED [facility] [employer] [address] [place] [address] MEAT COUNTER CLERK: CALVIN OLIVIA M.D. CLIA NUMBER [id number] [facility] [place]. [id number] GC AND CHLAMYDIA, AMPLIFIED, [id number] 00:00:00* Test Item Value Reference Range Interpretation Comme nts GONORRHEA, NAAT (test code = 89030) NEGATIVE CHLAMYDIA, NAAT (test code = 50578) NEGATIVE Fam F AustinGC AND CHLAMYDIA, AMPLIFIED, [id number] 00:00:00* Test Item Value Reference Range Interpretation Comme nts GONORRHEA, NAAT (test code = 01136) NEGATIVE CHLAMYDIA, NAAT (test code = 58721) NEGATIVE Fam F AustinGC AND CHLAMYDIA, AMPLIFIED, [id number] 00:00:00* Test Item Value Reference Range Interpretation Comme nts GONORRHEA, NAAT (test code = 05580) NEGATIVE CHLAMYDIA, NAAT (test code = 76905) NEGATIVE Fam F AustinGC AND CHLAMYDIA, AMPLIFIED, [id number] 00:00:00* Test Item Value Reference Range Interpretation Comme nts GONORRHEA, NAAT (test code = 92211) NEGATIVE CHLAMYDIA, NAAT (test code = 88744) NEGATIVE GC AND CHLAMYDIA, AMPLIFIED, [id number] 00:00:00* Test Item Value Reference Range Interpretation Comme nts GONORRHEA, NAAT (test code = 77807) NEGATIVE CHLAMYDIA, NAAT (test code = 51854) NEGATIVE Fam Unger AustinCHLAMYDIA, NAAT, [id number] 09:29:13* Test Item Value Reference Range Interpretation Comme nts CHLAMYDIA, NAAT (test code = 38173) POSITIVE NEGATIVE A IMPORTANT NO [place]RA[place]: SEE ANNOUNCEMENT AT [email or web address] [email or web address] Note: Assay methodology is nucleic acid amplification by staff combat information center officer mediated amplification (TMA) utilizing the Aptima Combo 2 Assay. GONORRHEA, NAAT, [id number] 09:29:13* Test Item Value Reference Range Interpretation Comme nts GONORRHEA, NAAT (test code = 99395) NEGATIVE NEGATIVE IMPORTANT NO [place]RA[place]: SEE ANNOUNCEMENT AT [email or web address] [email or web address] Note: Assay methodology is nucleic acid amplification by staff combat information center officer mediated amplification (TMA) utilizing the Aptima Combo 2 Assay. GC, AMPLIFIED, [id number] 00:00:00* Test Item Value Reference Range Interpretation Comme nts GONORRHEA, NAAT (test code = 47270) NEGATIVE Fam Unger AustinCHLAMYDIA, AMPLIFIED, [id number] 00:00:00* Test Item Value Reference Range Interpretation Comme nts CHLAMYDIA, NAAT (test code = 82853) POSITIVE Fam Unger AustinGC, AMPLIFIED, [id number] 00:00:00* Test Item Value Reference Range Interpretation Comme nts GONORRHEA, NAAT (test code = 02240) NEGATIVE Fam Unger AustinCHLAMYDIA, AMPLIFIED, [id number] 00:00:00* Test Item Value Reference Range Interpretation Comme nts CHLAMYDIA, NAAT (test code = 38818) POSITIVE Fam Unger AustinGC, AMPLIFIED, [id number] 00:00:00* Test Item Value Reference Range Interpretation Comme nts GONORRHEA, NAAT (test code = 83669) NEGATIVE Fam Unger AustinCHLAMYDIA, AMPLIFIED, [id number] 00:00:00* Test Item Value Reference Range Interpretation Comme nts CHLAMYDIA, NAAT (test code = 49033) POSITIVE Fam Unger AustinGC, AMPLIFIED, [id number] 00:00:00* Test Item Value Reference Range Interpretation Comme nts GONORRHEA, NAAT (test code = 36991) NEGATIVE Fam AlmanzarCHLAMYDIA, AMPLIFIED, [id number] 00:00:00* Test Item Value Reference Range Interpretation Comme nts CHLAMYDIA, NAAT (test code = 82264) POSITIVE GC, AMPLIFIED, [id number] 00:00:00* Test Item Value Reference Range Interpretation Comme nts GONORRHEA, NAAT (test code = 73732) NEGATIVE CHLAMYDIA, AMPLIFIED, [id number] 00:00:00* Test Item Value Reference Range Interpretation Comme nts CHLAMYDIA, NAAT (test code = 43939) POSITIVE Fam AlmanzarHIV 1/2 4TH GEN, RFLX [id number] 04:39:43* Test Item Value Reference Range Interpretation Comme nts HIV 1/2 4TH GEN, RFLX CONF (test code = 3514) NON-REACTIVE NON-REACTIVE UNLESS OTHERWISE INDICATED, ALL TESTING PERFORMED [facility] [employer] [address] [place] [address] MEAT COUNTER CLERK: CALVIN OLIVIA M.D. CLIA NUMBER [id number] [facility] [place]. [id number] 04:03:59* Test Item Value Reference Range Interpretation Comme nts RPR RESULT (test code = 3501) NON-REACTIVE NON-REACTIVE RPR TITER (test code = 3500) NOT INDIC. TITER NOT INDIC. [id number] 00:00:00* Test Item Value Reference Range Interpretation Comme nts RPR RESULT (test code = 3501) NON-REACTIVE RPR TITER (test code = 3500) NOT INDIC. TITER Fam AlmanzarHIV AB/AG COMBO RFLX [id number] 00:00:00* Test Item Value Reference Range Interpretation Comme nts HIV 1/2 4TH GEN, RFLX CONF ( test code = 3514) NON-REACTIVE Fam [id number] 00:00:00* Test Item Value Reference Range Interpretation Comme nts RPR RESULT (test code = 3501) NON-REACTIVE RPR TITER (test code = 3500) NOT INDIC. TITER Fam AlmanzarHIV AB/AG COMBO RFLX [id number] 00:00:00* Test Item Value Reference Range Interpretation Comme nts HIV 1/2 4TH GEN, RFLX CONF ( test code = 3514) NON-REACTIVE Fam [id number] 00:00:00* Test Item Value Reference Range Interpretation Comme nts RPR RESULT (test code = 3501) NON-REACTIVE RPR TITER (test code = 3500) NOT INDIC. TITER Fam AlmanzarHIV AB/AG COMBO RFLX [id number] 00:00:00* Test Item Value Reference Range Interpretation Comme nts HIV 1/2 4TH GEN, RFLX CONF ( test code = 3514) NON-REACTIVE Fam [id number] 00:00:00* Test Item Value Reference Range Interpretation Comme nts RPR RESULT (test code = 3501) NON-REACTIVE RPR TITER (test code = 3500) NOT INDIC. TITER Fam [id number] 00:00:00* Test Item Value Reference Range Interpretation Comme nts RPR RESULT (test code = 3501) NON-REACTIVE RPR TITER (test code = 3500) NOT INDIC. TITER HIV AB/AG COMBO RFLX [id number] 00:00:00* Test Item Value Reference Range Interpretation Comme nts HIV 1/2 4TH GEN, RFLX CONF ( test code = 3514) NON-REACTIVE Fam AlmanzarHIV AB/AG COMBO RFLX [id number] 00:00:00* Test Item Value Reference Range Interpretation Comme nts HIV 1/2 4TH GEN, RFLX CONF ( test code = 3514) NON-REACTIVE Notes Date/Time Note Provider Source [facility]2025-01-13 00:00:00 [facility]2024-12-04 00:00:00 [facility]2024-08-10 00:00:00 [facility]
[2024-11-15] MEDS ORDERED: ONDANSETRON 4 MG/2 ML VIAL ONE (13:48)
[2024-11-15] MEDS ORDERED: NA CHLORIDE 0.9% 1,000 ML ONE (13:49)
[2024-11-15 14:05] LABS: Specific Gravity > 1.030 (1.005-1.030)
[2024-11-15 14:07] LABS: Specific Gravity > 1.030 (1.005-1.030); Urine Bacteria <20 /HPF (<20); Urine Bilirubin NEGATIVE (Negative); Urine Blood Trace (Negative); Urine Clarity Extremely Turbid (Clear); Urine Color Yellow (Yellow); Urine Culture Reflex Order NOT NEEDED; Urine Glucose NEGATIVE (Negative); Urine Ketones TRACE (Negative); Urine Microscopic Reflex YN ORDER UMIC; Urine Mucus 4+ /HPF (None Seen); Urine Nitrite NEGATIVE (Negative); Urine Protein 1+ (Negative); Urine Urobilinogen Normal (Normal); Urine WBC <5 /HPF (<5); Urine WBC Clump Rare /HPF (None Seen); Urine Yeast (Budding) Trace /HPF (None Seen); Urine pH 5.5 (5.0-7.0)
[2024-11-15 14:10] LABS: Absolute Basophils 0.1 K/uL (0-0.5); Absolute Eosinophils 0.1 K/uL (0-0.5); Absolute Lymphocytes (CBC) 1.9 K/uL (0.7-4.9); Absolute Monocytes 0.6 K/uL (0.1-1.3); Eosinophils % 2.1 % (0-4.4); Hematocrit 37.7 % (36.0-45.0); Lymphocytes % 27.9 % (15.3-44.8); MCH 28.6 pg (27.0-35.0); MCHC 34.4 g/dL (32.0-36.0); MCV 83.2 fL (80-100); MPV 8.6 fL (7.6-11.3); Monocytes % 8.8 % (3.3-12.3); Neutrophils % 60.2 % (41.7-73.7); Nucleated Red Blood Cells % 0.1 % (0-0); Platelets 268 thou/uL (152-406); RBC Red Blood Cell Count 4.53 M/uL (3.86-4.86); Red Cell Distribution Width 12.9 % (12.1-15.2)
[2024-11-15 14:29] LABS: Anion Gap 7.2 mEq/L (5.0-15.0); Potassium 3.2 mEq/L (3.5-5.1)
--- NOTE | 2024-11-15 15:27 | RAD REPORT ---
EXAMINATION: Transvaginal OB COMPARISON: None. HISTORY: ABD CRAMPING, TECHNIQUE: Real-time ultrasound was performed through the pelvis. A transvaginal scan was performed t o better visualize the intrauterine contents and adnexa. FINDINGS: There is a single living intrauterine . Cardiac activity measured 115 BPM. Small subchorionic hemorrhage suspected measuring 9 x 4 mm. Both ovaries are visualized and appear unremarkable. There is no free fluid in the cul-de-sac. Measurements and Calculations: [place] rump length 6 mm, consistent with a sonographic age of 6 weeks, 2 days. Estimated date of deli very is 07/05/2025 IMPRESSION: Single living intrauterine , with a composite sonographic age of 6 weeks, 2 days. Small 9 x 4 mm subchorionic bleed.
--- NOTE | 2024-11-15 15:59 | ER ---
Nurse's Notes [facility] Name: Caroline Molina Age: 19 yrs Sex: Female : 2005 Arrival Date: 11/15/2024 Time: 13:14 Bed 8 Private MD: Diagnosis: Vomiting of , unspecified;6 weeks gestation Presentation: 11/15 13:22 Chief complaint: Patient states: home UPT was positive , LMP 1--25, , vomiting X iw 1 week, unable to tolerate fluids , has not established an OB yet , mild cramping but no bleeding. Coronavirus screen: At this time, the client does not indicate any symptoms associated with coronavirus-19. Ebola Screen: No symptoms or risks identified at this time. Initial Sepsis Screen: Does the patient meet any 2 criteria? No. Patient's initial sepsis screen is negative. Does the patient have a suspected source of infection? No. Patient's initial sepsis screen is negative. Risk Assessment: Do you want to hurt yourself or someone else? Patient reports no desire to harm self or others. Onset of symptoms was November 10, 2024. 13:22 Method Of Arrival: Ambulatory iw 13:22 Acuity: MARY 3 iw LIBRARY PAGE: 13:25 2, Living 0, LMP 09/29/2024, unknown iw Historical: - Allergies: 13:24 No Known Allergies; iw - Home Meds: 13:24 None [Active]; iw - PMHx: 13:24 None; iw - PSHx: 13:24 Right Ankle; [place] Tooth Extraction; iw - Immunization history:: Adult Immunizations not up to date. - Infectious Disease History:: Denies. - Social history:: Smoking status: Patient denies any tobacco usage or history of. Screenin:04 [facility] ED Fall Risk Assessment (Adult) History of falling in the last 3 months, le1 including since admission No falls in past 3 months (0 pts) Confusion or Disorientation No (0 pts) Intoxicated or Sedated No (0 pts) Impaired Gait No (0 pts) Mobility Assist Device Used No (0 pt) Altered Elimination No (0 pt) Score/Fall Risk Level 0 - 2 = Low Risk Oriented to surroundings, Maintained a safe environment, Educated pt \T\ family on fall prevention, incl call for assistance when getting out of bed, Assessed \T\ reinforced patient's understanding of fall precautions, Hourly rounding (assess needs \T\ fall precautionary measures) done. Abuse screen: Denies threats or abuse. Denies injuries from another. Nutritional screening: No deficits noted. Tuberculosis screening: No symptoms or risk factors identified. Assessment: 13:50 General: Appears comfortable, Behavior is calm, cooperative. Pain: Denies pain. Neuro: aa5 Level of Consciousness is awake, alert, obeys commands, Oriented to person, place, time, situation. Cardiovascular: Patient's skin is warm and dry. Respiratory: Airway is patent Respiratory effort is even, unlabored, Respiratory pattern is regular, symmetrical. GI: Abdomen is flat, non-distended, Bowel sounds present X 4 quads. Abd is soft and non tender X 4 quads. Reports nausea, vomiting. : No signs and/or symptoms were reported regarding the genitourinary system. Denies vaginal bleeding. EENT: No signs and/or symptoms were reported regarding the EENT system. Derm: Skin is pink, warm \T\ dry. Musculoskeletal: Range of motion: intact in all extremities. 15:43 Reassessment: Patient appears in no apparent distress at this time. Patient and/or jb4 family updated on plan of care and expected duration. Pain level reassessed. Patient is alert, oriented x 3, equal unlabored respirations, skin warm/dry/pink. Pt tolerated PO challenge with no nausea. Vital Signs: 13:22 BP 122 / 73; Pulse 94; Resp 16; Temp 98.3; Pulse Ox 100% on R/A; Weight 44.45 kg; iw Height 4 ft. 11 in. ; 13:22 Body Mass Index 19.79 (44.45 kg, 149.86 cm) - Percentile 24.9 % iw ED Course: 13:16 Patient arrived in ED. im 13:24 Triage completed. iw 13:35 Chloé Gillette PA-C is PHCP. sb4 13:35 Yovani Castro MD is Attending Physician. sb4 13:35 Leah Munoz, SHARLENE is Primary Nurse. aa5 14:03 Initial lab(s) drawn, by me, sent to lab. Urine collected: clean catch specimen, clear. le1 Inserted saline lock: 20 gauge in right antecubital area, using aseptic technique. Blood collected. Flushed with 10 mL NS. 14:04 Patient has correct armband on for positive identification. Bed in low position. Call le1 light in reach. Side rails up X2. Provided Education on: Informed to use call light for assistance. . 14:42 Transvaginal Ob In Process Unspecified. EDMS 14:49 No provider procedures requiring assistance completed. aa5 14:54 Primary Nurse role handed off by Leah Munoz RN le1 14:54 Negro Jordan RN is Primary Nurse. le1 16:20 IV discontinued, intact, bleeding controlled, No redness/swelling at site. Pressure jb4 dressing applied. Administered Medications: 14:00 Drug: NS 0.9% IV 1000 ml IV at 1000 ml once; to be given as a bolus over 60 minutes le1 Route: IV; Rate: 1000 ml; Site: right antecubital; 15:22 Follow up: Response: No adverse reaction; IV Status: Completed infusion; IV Intake: le1 1000ml 14:00 Drug: Ondansetron IVP 4 mg IVP once; over 2 minutes Route: IVP; Site: right antecubital;le1 14:03 Follow up: Response: No adverse reaction le1 16:22 Drug: Potassium PO Effervescent Tablet 50 mEq PO once; dissolve in 4 ounces of water or jb4 juice Route: PO; 16:23 Follow up: Response: Medication administered at discharge. jb4 Medication: 14:49 VIS not applicable for this client. aa5 Intake: 15:22 IV: 1000ml; Total: 1000ml. le1 Outcome: 15:58 Discharge ordered by MD. sb4 16:20 Discharged to home ambulatory, jb4 16:20 Condition: stable 16:20 Discharge instructions given to patient, Instructed on discharge instructions, follow up and referral plans. medication usage, Demonstrated understanding of instructions, follow-up care, medications, Prescriptions given X 1, 16:24 Patient left the ED. jb4 Signatures: Dispatcher [employer] EDJeanie Goel RN RN Leah Munoz, SHARLENE SU aa5 Devan Rawls RN RN jb4 Chloé Gillette, PA-C PA-C sb4 Kandice Isaacs Negro Jordan RN RN le1 Corrections: (The following items were deleted from the chart) 13:25 13:25 2, Living 0, LMP 10/01/2024, unknown iw iw
--- NOTE | 2024-11-15 15:59 | EDPHYS ---
Physician Documentation [facility] Name: Caroline Molina Age: 19 yrs Sex: Female : 2005 Arrival Date: 11/15/2024 Time: 13:14 Bed 8 Private MD: ED Physician Yovani Castro HPI: 11/15 16:51 This 19 yrs old Female presents to ER via Ambulatory with complaints of sb4 Nausea/Vomiting, 7 weeks . 16:51 The patient presents to the emergency department with nausea, vomiting. Onset: The sb4 symptoms/episode began/occurred 2 day(s) ago. Possible causes: . approx 7 weeks gestation presents with complaints of n/v x 2 days. states she cannot hold anything down. mild abd cramping, no vag bleed. no urinary symptoms. SOLICITOR PATENT: 13:25 2, Living 0, LMP 09/29/2024, unknown iw Historical: - Allergies: 13:24 No Known Allergies; iw - Home Meds: 13:24 None [Active]; iw - PMHx: 13:24 None; iw - PSHx: 13:24 Right Ankle; [place] Tooth Extraction; iw - Immunization history:: Adult Immunizations not up to date. - Infectious Disease History:: Denies. - Social history:: Smoking status: Patient denies any tobacco usage or history of. ROS: 16:51 Constitutional: Negative for fever, chills, and weight loss, sb4 16:51 Abdomen/GI: Positive for nausea and vomiting, 16:51 All other systems are negative, Exam: 16:51 Constitutional: This is a well developed, well nourished patient who is awake, alert, sb4 and in no acute distress. Head/Face: Normocephalic, atraumatic. Eyes: Extra-ocular motions intact. Periorbital areas with no swelling, redness, or edema. ENT: Mucous membranes moist. Cardiovascular: Regular rate and rhythm with a normal S1 and S2. Respiratory: No increased work of breathing, no retractions or nasal flaring. Abdomen/GI: Soft, non-tender, no distension. Skin: Warm, dry with normal turgor. Normal color with no rashes, no lesions, and no evidence of cellulitis. Vital Signs: 13:22 BP 122 / 73; Pulse 94; Resp 16; Temp 98.3; Pulse Ox 100% on R/A; Weight 44.45 kg; iw Height 4 ft. 11 in. ; 13:22 Body Mass Index 19.79 (44.45 kg, 149.86 cm) - Percentile 24.9 % iw MDM: 13:35 Medical Screening Exam initiated sb4 16:52 Data reviewed: vital signs, nurses notes, lab test result(s), radiologic studies, and sb4 as a result, I will discharge patient. Counseling: I had a detailed discussion with the patient and/or guardian regarding the historical points, exam findings, and any diagnostic results supporting the discharge/admit diagnosis, lab results, radiology results, the need for outpatient follow up, an OB/Gyne specialist, to return to the emergency department if symptoms worsen or persist or if there are any questions or concerns that arise at home. 11/15 13:48 Order name: Basic Metabolic Panel; Complete Time: 14:55 sb4 11/15 13:48 Order name: CBC with Diff; Complete Time: 14:26 sb4 11/15 13:48 Order name: Test, Urine; Complete Time: 14:07 sb4 11/15 13:48 Order name: Quantitative Hcg; Complete Time: 14:55 sb4 11/15 13:48 Order name: Urinalysis w/ reflexes; Complete Time: 14:09 sb4 11/15 13:48 Order name: US Transvaginal Ob; Complete Time: 15:28 sb4 11/15 13:48 Order name: IV Saline Lock; Complete Time: 14:03 sb4 11/15 13:48 Order name: Labs collected and sent; Complete Time: 14:03 sb4 11/15 15:24 Order name: PO challenge; Complete Time: 15:43 sb4 Administered Medications: 14:00 Drug: NS 0.9% IV 1000 ml IV at 1000 ml once; to be given as a bolus over 60 minutes le1 Route: IV; Rate: 1000 ml; Site: right antecubital; 15:22 Follow up: Response: No adverse reaction; IV Status: Completed infusion; IV Intake: le1 1000ml 14:00 Drug: Ondansetron IVP 4 mg IVP once; over 2 minutes Route: IVP; Site: right antecubital;le1 14:03 Follow up: Response: No adverse reaction le1 16:22 Drug: Potassium PO Effervescent Tablet 50 mEq PO once; dissolve in 4 ounces of water or jb4 juice Route: PO; 16:23 Follow up: Response: Medication administered at discharge. jb4 Disposition: 19:09 Co-signature as Attending Physician, Yovani Castro MD I reviewed the patient's care rt provided by the Advanced Practice Provider and agree with the diagnosis and treatment plan. Disposition Summary: 11/15/24 15:58 Discharge Ordered Notes: Location: Home sb4 Problem: new sb4 Symptoms: have improved sb4 Condition: Stable sb4 Diagnosis - Vomiting of , unspecified sb4 - 6 weeks gestation sb4 Followup: sb4 - With: Private Physician - When: 1 week - Reason: Recheck today's complaints, Re-evaluation by your physician Discharge Instructions: - Discharge Summary Sheet sb4 - Morning Sickness, [id number] sb4 - First Trimester of , Jtml-mg-[id number] sb4 - Subchorionic Hematoma sb4 Forms: - Patient Portal Instructions sb4 - Leadership Thank You Letter sb4 Prescriptions: - Reglan 10 mg Oral tablet - take 1 tablet ORAL route every 6 hours; 20 tablet; Refills: 0, Product sb4 Selection Permitted Signatures: Dispatcher [employer] EDJeanie Goel RN RN iw Bryson, James, RN RN jb4 Chloé Gillette PA-C PA-C sb4 Yovani Castro MD MD rt Negro Jordan RN RN le1 Corrections: (The following items were deleted from the chart) 13:49 13:49 BASIC METABOLIC PANEL+C.LAB.BRZ ordered. EDMS EDMS 13:49 13:49 CBC+H.LAB.BRZ ordered. EDMS EDMS 13:49 13:49 Test, Urine+UC.LAB.BRZ ordered. EDMS EDMS 13:49 13:49 QUANTITATIVE HCG+C.LAB.BRZ ordered. EDMS EDMS 13:49 13:49 Urinalysis+U.LAB.BRZ ordered. EDMS EDMS 13:49 13:49 Transvaginal Ob+US.RAD.BRZ ordered. EDMS EDMS
[2024-11-15] MEDS ORDERED: POTASSIUM 25 MEQ EFFERV TAB ONE (16:17)
[2024-11-15 16:34] VITALS: BP 122/73; TEMP 98.3; O2SAT 100
== END 2024-11-15 16:24 | disposition home or self-care (01) ==
LOC: ER 13:14
DX: O21.9 Vomiting of pregnancy, unspecified (principal); Z3A.01 Less than 8 weeks gestation of pregnancy
CPT/HCPCS: 96361; 85025; 81001; 80048; 36415; 81025; 84702; 76817; 96374; 99284; J2405; J7030

== ENCOUNTER 2025-01-21 12:56 | Emergency (ER) | payer OTHER ==
--- OUTSIDE RECORDS SUMMARY | 2025-01-21 13:02 | XMS REPORT | Continuity of Care Document ---
Author Name Unknown Address [address] [facility] [address] [place] [address] Organization [facility] [place] Address [address] [facility] 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 Role Phone Hailey George Primary Care Physician [phone] KRISTIN CASTELAN Attending Clinician Unavail able Doctor Unassigned, [place] Attending Clinician U navailable Akinsikisahn WHKristin JOHNSON Attending Clinician + CORTNEY SULLIVAN Attending Clinician Unav ailable CORTNEY SULLIVAN Attending Clinician Unav ailable Ultrasound, [facility] Attending Clinician UnavailCortney Jaeger MD Attending Clinician + TONYA RIZO Attending Clinician Unavailable DAVID RODRIGUEZ Attending Clinician Unavailable DAVID RODRIGUEZ Attending Clinician Unavailable BHAKTI DAVALOS Attending Clinician Unavailable BHAKTI DAVALOS Attending Clinician Unavailable Saba Israel MD Attending Clinician Doctor Unassigned, [place] Attending Clinician U navailable SABA ISRAEL Attending Clinician Unavail able Hailey Berumen PA-C Attending Clinician HAILEY BERUMEN Attending Clinician Unavailable BI QUICK Attending Clinician Unavail able Blaine RNDaron Attending Clinician Unavailab ponce Pcp, Patient Does Not Have A Attending Clinician Only, Ang Db Test Attending Clinician UnavailAlbert Kauffman Attending Clinician [phone] ALBERT TTOH Attending Clinician Unavailable Karl Morocho Attending Clinician DAVID RODRIGUEZ Admitting Clinician Unavailable SABA ISRAEL Admitting Clinician Unavail able Payers Payer Name Policy Type Policy Number Effective Date Expirati on Date Source [facility] EPO [id number] 2024 00:00:00 [place] [employer] [id number] 2024 00:00:00 MEDICAID PENDING PENDING 2023 00:00:00 [employer] O [id number] 2017 00:00:00 Problems Condition Name Condition Details Condition Category Status Onset Date Resolution Date Last Treatment Date Treating Clinician Comments Source History of miscarriag e, currently History of miscarriag e, currently Disease Active 12-08 00:00: 00 [facility] Supervisio n of high-risk Supervisio n of high-risk Disease Active 12-08 00:00: 00 [facility] Subchorion ic hematoma in first trimester Subchorion ic hematoma in first trimester Disease Active 12-08 00:00: 00 [facility] No known active problems No known active problems Disease [facility] Allergies, Adverse Reactions, Alerts Allergy Name Allergy Type Status Severity Reaction(s) Onset Date Inactive Date Treating Clinician Comments Source NO KNOWN ALLERGIE S Drug Class Active [facility] Social History Social Habit Start Date Stop Date Quantity Comments Source ASSERTION 2024-10-13 00:00:00 [facility] intake 2024-12-08 00:00:00 2024-12-08 00:00:00 Ex-drinker (finding) [facility] Exposure to SARS-CoV-2 (event) 2022-07-03 00:00:00 2022-07-13 16:28:00 Not sure [facility] History of Social function 2019-03-25 00:00:00 2019-03-25 00:00:00 [facility] Tobacco use and exposure 2018-07-15 00:00:00 2018-07-15 00:00:00 Smokeless tobacco non-user [facility] Sex assigned at 2004 00:00:00 2005 00:00:00 [facility] Smoking Status Start Date Stop Date Source Never smoked tobacco [facility] Medications Ordered Medication Name Filled Medication Name Start Date Stop Date Current Medication? Ordering Clinician Indication Dosage Frequency Signature (SIG) Comments Components Source PNV 67-iron ps-folate no.1-dha (VITAFOL ULTRA) 29 mg iron- 1 mg-200 mg Cap 3- 00:00: 00 Yes [id number] 1{each} Take 1 Each by mouth in the morning. [facility] Diclegis 10 mg-10 mg tablet,agel yed release -17 00:00: 00 Yes mg Fam Ute Yohan ondansetron 4 mg disintegrat ing tablet 11-27 00:00: 00 Yes [id number] 4mg Take 1 tablet by mouth every 8 (eight) hours as needed for Nausea and Vomiting (N/V). [facility] clotrimazol e 1 % vaginal cream 10-19 00:00: 00 Yes % Fam Ute Almanzar fluconazole 150 mg tablet 10-19 00:00: 00 Yes 1mg Fam Ute Almanzar metronidazo le 500 mg tablet -14 00:00: 00 Yes 1mg Fam Ute Almanzar cephALEXin (KEFLEX) capsule 250 mg 2022-09 04:30: 00 08-18 04:32 :00 No 250mg 250 mg, Oral, ONCE, 1 dose, On 08/17/23 at 2230, NERISSA
Re ason for Anti-Infec tive: Documented Infection< br>Documen cory Infection Site: Urine
D uration of Therapy: Other (see Comments) [facility] naproxen (NAPROSYN) tablet 250 mg 2022-09 04:15: 00 Yes 250mg 250 mg, Oral, BID MEALS, First dose on 08/17/23 at 2215, Until Discontinu ed, Routine [facility] TAKE ONE CAPSULE BY MOUTH EVERY 8 HOURS FOR 7 DAYS 2022-09 00:00: 00 Yes Fam Almanzar naproxen 250 mg tablet 2022-09 00:00: 00 Yes [id number] 250mg Take 1 tablet by mouth every 8 (eight) hours as needed for Pain (scale 1-3) or Pain (scale 4-6). [facility] cephALEXin 250 mg capsule 2022-09 00:00: 00 08-25 05:59 :00 No [id number] 250mg Take 1 capsule by mouth every 8 (eight) hours for 7 days. [facility] NaCl 0.9% (NS) IV infusion 1,000 mL 2022-09 03:15: 00 Yes 1000mL at 999 mL/hr, Intravenou s, CONTINUOUS , Starting on Sat08/13/23 at 2115, Until Discontinu ed, Routine [facility] acetaminoph en (TYLENOL) tablet 1,000 mg 2022-09 03:15: 00 08-14 03:43 :00 No 1000mg 1,000 mg, Oral, ONCE, 1 dose, On Sat08/13/23 at 2115, Routine [facility] ondansetron (ZOFRAN (PF)) injection 4 mg 2022-09 02:15: 00 08-14 03:43 :00 No 4mg 4 mg, Slow IV Push, ONCE, 1 dose, On Sat08/13/23 at 2015, NERISSA [facility] doxylamine- pyridoxine, vit B6, (DICLEGIS) 10-10 mg per tablet 2022-09 00:00: 00 Yes [id number] 2{tbl} Take 2 tablets by mouth at bedtime as needed for Nausea and Vomiting (N/V). [facility] RINSE MOUTH WITH 15ML (1 CAPFUL) FOR 30 SECONDS AM AND PM AFTER TOOTHBRUSHI NG. EXPECTORATE AFTER RINSING, DO NOT SWALLOW 2022-09 00:00: 00 11-26 00:00 :00 No 12 Fam F Yohan TAKE 1 TABLET BY MOUTH EVERY 6 HOURS NEEDED NAUSEA 6- 00:00: 00 Yes Fam Almanzar TAKE 1 TABLET BY MOUTH EVERY 12 HOURS 02-18 00:00: 00 Yes Fam Almanzar TAKE 1 TABLET TWICE DAILY UNTIL FINISHED. 01-30 00:00: 00 11-26 00:00 :00 No 500 Fam Almanzar TAKE 1 TABLET NOW, AND REPEAT IN 4 DAYS. 01-28 00:00: 00 11-26 00:00 :00 No 150 [...] 17:24: 05 No No known medication s [facility] SMZ/TMP DS [id number] 0-18 00:00: 00 Yes Fam Almanzar sulfamethox azole-trime thoprim (BACTRIM DS) 800-160 mg per tablet 2021-0918 00:00: 00 07-14 04:59 :00 No [id number] 1{tbl} Take 1 tablet by mouth in the morning and 1 tablet in the evening. Do all this for 10 days. [facility] No known medications 06-12 16:14: 29 No No known medication s [facility] TAKE 1 TABLET NOW, AND REPEAT IN 4 DAYS. 2022-0 7-31 00:00: 00 Yes 150 Fam Almanzar &lt 2022-0 7-24 00:00: 00 Yes 100 Famaleksandr Almanzar FLUCONAZOLE 2-0 7-18 00:00: 00 11-26 00:00 :00 No 150 Fam Almanzar METRONIDAZO L 2-0 7-18 00:00: 00 11-26 00:00 :00 No 500 Fam Almanzar &lt 2022-0 7-13 00:00: 00 Yes Fam Almanzar TAKE 1/2 TABLET BY MOUTH EVERY 8 HOURS NEEDED FOR PAIN 2-0 7-13 00:00: 00 Yes 800 Fam Almanzar &lt 2022-0 7-13 00:00: 00 Yes 100 Fam Almanzar &lt 2022-0 7-13 00:00: 00 No 100 &lt 2022-0 7-13 00:00: 00 No TAKE 1/2 TABLET BY MOUTH EVERY 8 HOURS NEEDED FOR PAIN 2021-0 7-13 00:00: 00 No 800 Dose Unknown 2021-0 5-09 00:00: 00 Yes Fam Almanzar Dose Unknown 2021-0 5-09 00:00: 00 No Dose Unknown 2021-0 4-11 00:00: 00 Yes Fam Almanzar Dose Unknown 0 4-11 00:00: 00 No terbinafine HCl 1 % topical cream 2021-0 4-08 00:00: 00 Yes 1% Fam Almanzar Dose Unknown 0 4-08 00:00: 00 Yes Fam Almanzar Dose Unknown 0 4-08 00:00: 00 No terbinafine HCl 1 % topical cream 2021-0 4-08 00:00: 00 No 1% doxycycline monohydrate 100 mg capsule 0 2-15 00:00: 00 Yes 1mg Fam Almanzar Dose Unknown 0 2-15 00:00: 00 No No known medications 2020-0 6-16 10:38: 31 No [facility] ibuprofen 200 mg tablet 0 2-11 00:00: 00 Yes 1mg Fam Almanzar acetaminoph en 325 mg tablet 0 2-11 00:00: 00 Yes 1mg Fam Almanzar Bromfed DM 2 mg-30 mg-10 mg/5 mL oral syrup 10-27 00:00: 00 Yes 10mg/5 mL Fam Almanzar ibuprofen 200 mg tablet 10-27 00:00: 00 No 1mg acetaminoph en 325 mg tablet 10-27 00:00: 00 No 1mg Bromfed DM 2 mg-30 mg-10 mg/5 mL oral syrup 10-27 00:00: 00 No 10mg/5 mL No known medications No Un raysa [facility] Immunizations Ordered Immunization Name Filled Immunization Name Date Status Comments Source HPV 2015-12-09 00:00:00 Completed [facility] Meningococcal Vaccine 2015-12-09 00:00:00 Completed [facility] TDAP 2015-12-09 00:00:00 Completed [facility] HPV 2015-12-09 00:00:00 Completed [facility] Meningococcal Vaccine 2015-12-09 00:00:00 Completed [facility] TDAP 2015-12-09 00:00:00 Completed [facility] HPV 2015-12-09 00:00:00 Completed [facility] Meningococcal Vaccine 2015-12-09 00:00:00 Completed [facility] TDAP 2015-12-09 00:00:00 Completed [facility] HPV 2015-12-09 00:00:00 Completed [facility] Meningococcal Vaccine 2015-12-09 00:00:00 Completed [facility] TDAP 2015-12-09 00:00:00 Completed [facility] HPV 2015-12-09 00:00:00 Completed Meningococcal Vaccine 2015-12-09 00:00:00 Completed TDAP 2015-12-09 00:00:00 Completed HPV 2015-12-09 00:00:00 Completed [facility] Meningococcal Vaccine 2015-12-09 00:00:00 Completed [facility] TDAP 2015-12-09 00:00:00 Completed [facility] Varicella (varivax)(chicken pox) 2008-11-10 00:00:00 Completed [facility] DTAP 2008-11-10 00:00:00 Completed [facility] MMR 2008-11-10 00:00:00 Completed [facility] Polio (IPV/OPV) 2008-11-10 00:00:00 Completed [facility] DTAP 2008-11-10 00:00:00 Completed [facility] MMR 2008-11-10 00:00:00 Completed [facility] Polio (IPV/OPV) 2008-11-10 00:00:00 Completed [facility] Varicella (varivax)(chicken pox) 2008-11-10 00:00:00 Completed [facility] DTAP 2008-11-10 00:00:00 Completed [facility] MMR 2008-11-10 00:00:00 Completed [facility] Polio (IPV/OPV) 2008-11-10 00:00:00 Completed [facility] Varicella (varivax)(chicken pox) 2008-11-10 00:00:00 Completed [facility] DTAP 2008-11-10 00:00:00 Completed [facility] MMR 2008-11-10 00:00:00 Completed [facility] Polio (IPV/OPV) 2008-11-10 00:00:00 Completed [facility] Varicella (varivax)(chicken pox) 2008-11-10 00:00:00 Completed [facility] DTAP 2008-11-10 00:00:00 Completed [facility] MMR 2008-11-10 00:00:00 Completed Polio (IPV/OPV) 2008-11-10 00:00:00 Completed Varicella (varivax)(chicken pox) 2008-11-10 00:00:00 Completed DTAP 2008-11-10 00:00:00 Completed [facility] MMR 2008-11-10 00:00:00 Completed [facility] Polio (IPV/OPV) 2008-11-10 00:00:00 Completed [facility] Varicella (varivax)(chicken pox) 2008-11-10 00:00:00 Completed [facility] DTAP Unknown Completed [facility] HPV Unknown Completed [facility] Meningococcal Vaccine Unknown Completed [facility] MMR Unknown Completed [facility] Polio (IPV/OPV) Unknown Completed [facility] TDAP Unknown Completed [facility] Varicella (varivax)(chicken pox) Unknown Completed [facility] DTAP Unknown Completed [facility] HPV Unknown Completed [facility] Meningococcal Vaccine Unknown Completed [facility] MMR Unknown Completed [facility] Polio (IPV/OPV) Unknown Completed [facility] TDAP Unknown Completed [facility] Varicella (varivax)(chicken pox) Unknown Completed [facility] DTAP Unknown Completed [facility] HPV Unknown Completed [facility] Meningococcal Vaccine Unknown Completed [facility] MMR Unknown Completed [facility] Polio (IPV/OPV) Unknown Completed [facility] TDAP Unknown Completed [facility] Varicella (varivax)(chicken pox) Unknown Completed [facility] DTAP Unknown Completed [facility] HPV Unknown Completed [facility] Meningococcal Vaccine Unknown Completed [facility] MMR Unknown Completed [facility] Polio (IPV/OPV) Unknown Completed [facility] TDAP Unknown Completed [facility] Varicella (varivax)(chicken pox) Unknown Completed [facility] DTAP Unknown Completed [facility] HPV Unknown Completed [facility] Meningococcal Vaccine Unknown Completed [facility] MMR Unknown Completed [facility] Polio (IPV/OPV) Unknown Completed [facility] TDAP Unknown Completed [facility] Varicella (varivax)(chicken pox) Unknown Completed [facility] Vital Signs Vital Name Observation Time Observation Value Comments S ource Systolic blood pressure 2025-01-05 18:24:00 123 mm[Hg] [facility] Diastolic blood pressure 2025-01-05 18:24:00 75 mm[Hg] [facility] Heart rate 2025-01-05 18:24:00 98 /min [facility] Body temperature 2025-01-05 18:24:00 36.11 Lizbeth [facility] Respiratory rate 2025-01-05 18:24:00 18 /min [facility] Body height 2025-01-05 18:24:00 149.9 cm [facility] Body weight 2025-01-05 18:24:00 44.725 kg [facility] BMI 2025-01-05 18:24:00 19.91 kg/m2 [facility] Systolic blood pressure 2024-12-08 19:43:00 113 mm[Hg] [facility] Diastolic blood pressure 2024-12-08 19:43:00 75 mm[Hg] [facility] Heart rate 2024-12-08 19:43:00 73 /min [facility] Body temperature 2024-12-08 19:43:00 36.17 Lizbeth [facility] Respiratory rate 2024-12-08 19:43:00 18 /min [facility] Body height 2024-12-08 19:43:00 149.9 cm [facility] Body weight 2024-12-08 19:43:00 42.82 kg [facility] BMI 2024-12-08 19:43:00 19.07 kg/m2 [facility] Systolic blood pressure 2023-08-18 04:31:00 101 mm[Hg] [facility] Diastolic blood pressure 2023-08-18 04:31:00 69 mm[Hg] [facility] Heart rate 2023-08-18 04:31:00 90 /min [facility] Body temperature 2023-08-18 04:31:00 37.22 Lizbeth [facility] Respiratory rate 2023-08-18 04:31:00 18 /min [facility] Oxygen saturation in Arterial blood by Pulse oximetry 2023-08-18 04:31:00 99 /min [facility] Body height 2023-08-17 23:43:00 149.9 cm [facility] Body weight 2023-08-17 23:43:00 43.999 kg [facility] BMI 2023-08-17 23:43:00 19.59 kg/m2 [facility] Body mass index (BMI) [Percentile] Per age and sex 2023-08-17 23:43:00 24.26 % [facility] Systolic blood pressure 2023-08-14 06:00:00 99 mm[Hg] [facility] Diastolic blood pressure 2023-08-14 06:00:00 68 mm[Hg] [facility] Heart rate 2023-08-14 06:00:00 90 /min [facility] Body temperature 2023-08-14 06:00:00 36.78 Lizbeth [facility] Respiratory rate 2023-08-14 06:00:00 16 /min [facility] Oxygen saturation in Arterial blood by Pulse oximetry 2023-08-14 06:00:00 98 /min [facility] Body weight 2023-08-14 00:42:00 43.954 kg [facility] BMI 2023-08-14 00:42:00 19.57 kg/m2 [facility] Body mass index (BMI) [Percentile] Per age and sex 2023-08-14 00:42:00 24.03 % [facility] Body height 2023-08-14 00:41:00 149.9 cm [facility] Systolic blood pressure 2022-07-03 21:47:00 102 mm[Hg] [facility] Diastolic blood pressure 2022-07-03 21:47:00 68 mm[Hg] [facility] Heart rate 2022-07-03 21:47:00 85 /min [facility] Body temperature 2022-07-03 21:47:00 36.56 Lizbeth [facility] Respiratory rate 2022-07-03 21:47:00 14 /min [facility] Body height 2022-07-03 21:47:00 152.4 cm [facility] Body weight 2022-07-03 21:47:00 43.182 kg [facility] BMI 2022-07-03 21:47:00 18.59 kg/m2 [facility] Body mass index (BMI) [Percentile] Per age and sex 2022-07-03 21:47:00 15.48 % [facility] Oxygen saturation in Arterial blood by Pulse oximetry 2022-07-03 21:47:00 99 /min [facility] Systolic blood pressure 2022-06-12 20:38:00 111 mm[Hg] [facility] Diastolic blood pressure 2022-06-12 20:38:00 74 mm[Hg] [place] [facility] Heart rate 2022-06-12 20:38:00 89 /min [facility] Body temperature 2022-06-12 20:38:00 36.72 Lizbeth [facility] Respiratory rate 2022-06-12 20:38:00 18 /min [facility] Body height 2022-06-12 20:38:00 152 cm [facility] Body weight 2022-06-12 20:38:00 40.994 kg [facility] BMI 2022-06-12 20:38:00 17.74 kg/m2 [facility] Body mass index (BMI) [Percentile] Per age and sex 2022-06-12 20:38:00 7.29 % [place] [facility] BP Systolic 2025-01-08 15:02:00 105 mm[Hg] Step hen F Yohan BP Diastolic 2025-01-08 15:02:00 63 mm[Hg] Joseph phen F Yohan Weight Measured 2025-01-08 15:02:00 101.00 pounds Fam F Yohan Height Measured 2025-01-08 15:02:00 60.00 inches Fam F Yohan Body Temperature 2025-01-08 15:02:00 98.10 degrees Fam F Yohan Heart Rate 2025-01-08 15:02:00 79.00 /min Sanjana en F Yohan Respiratory Rate 2025-01-08 15:02:00 18.00 /min Fam F Yohan BP Systolic 2024-11-30 16:49:00 112 mm[Hg] Step hen F Yohan BP Diastolic 2024-11-30 16:49:00 62 mm[Hg] Joseph phen F Yohan Weight Measured 2024-11-30 16:49:00 99.40 pounds Fam F Yohan Height Measured 2024-11-30 16:49:00 59.00 inches Fam F Yohan Body Temperature 2024-11-30 16:49:00 98.50 degrees Fam F Yohan Heart Rate 2024-11-30 16:49:00 79.00 /min Sanjana en F Yohan Respiratory Rate 2024-11-30 16:49:00 18.00 /min Fam F Yohan BP Systolic 2024-10-19 14:47:00 109 mm[Hg] Step hen F Yohan BP Diastolic 2024-10-19 14:47:00 68 mm[Hg] Joseph phen F Yohan Weight Measured 2024-10-19 14:47:00 96.60 pounds Fam F Yohan Height Measured 2024-10-19 14:47:00 59.00 inches Fam F Yohan Body Temperature 2024-10-19 14:47:00 98.40 degrees Fam [...] 2024-08-19 13:33:00 18.00 /min Fam F Yohan Body Temperature 2024-04-25 13:50:00 [...] Weight Measured 2019-05-08 09:17:00 96.20 pounds Fam F Yohan Height Measured 2019-05-08 09:17:00 59.25 inches Fam F Yohan Body Temperature 2019-05-08 09:17:00 98.30 degrees Fam F Yohan Heart Rate 2019-05-08 09:17:00 86.00 /min Sanjana en F Yohan Respiratory Rate 2019-05-08 09:17:00 16.00 /min Fam F Yohan Procedures Procedure Date / Time Performed Performing Clinician Source NIPT - NON-INVASIVE TEST RESULTS 2025-01-18 19:10:34 Doctor Unassigned, [place] [facility] NIPT - NON-INVASIVE TEST RESULTS 2025-01-13 14:58:52 Doctor Unassigned, [place] [facility] FIRST TRIMESTER ULTRASOUND 2024-12-15 17:40:00 Kristin Castelan [facility] POCT TEST 2024-12-08 19:37:00 Herber Castelan [facility] POCT URINALYSIS W/O SPECIFIC GRAVITY 2024-12-08 19:37:00 Kristin Castelan [facility] US FIRST TRIMESTER LESS THAN 14 WEEKS WITH TRANSVAGINAL 2023-08-18 03:30:00 David Rodriguez [facility] TEST, SERUM 2023-08-18 01:08:00 Shannon Rodriguez [facility] ABORH CONFIRMATION (LAB ONLY) 2023-08-18 01:08:00 David Rodriguez [facility] URINALYSIS 2023-08-18 00:32:00 David Rodriguez [facility] HB ABO GROUPING 2023-08-18 00:18:00 [facility]. METABOLIC PANEL ([id number]) 2023-08-18 00:14:00 David Rodriguez [facility] TOTAL BETA HCG ASSAY 2023-08-18 00:14:00 Cande Rodriguez [facility] CBC WITH DIFF 2023-08-18 00:14:00 David Rodriguez [facility] ASSIGNMENT OF BENEFITS 2023-08-17 23:52:00 Docto r Unassigned, [place] [facility] CONSENT/REFUSAL FOR DIAGNOSIS AND TREATMENT 2023-08-17 23:33:48 Doctor Unassigned, [place] [facility] LIPASE 2023-08-14 03:32:00 Bhakti Davalos [facility] COMP. METABOLIC PANEL ([id number]) 2023-08-14 03:32:00 Bhakti Davalos [facility] CBC WITH DIFF 2023-08-14 03:32:00 Bhakti Davalos [facility] URINALYSIS 2023-08-14 03:32:00 Bhakti Davalos [facility] RAPID INFLUENZA A/B 2023-08-14 03:32:00 Bhakti Davalos [facility] COVID-19 (ID NOW RAPID TESTING) 2023-08-14 03:32:00 Bhakti Davalos [facility] NOTICE OF PRIVACY PRACTICES 2023-08-14 02:28:50 Doctor Unassigned, [place] [facility] ASSIGNMENT OF BENEFITS 2023-08-14 02:24:29 Docto r Unassigned, [place] [facility] CONSENT/REFUSAL FOR DIAGNOSIS AND TREATMENT 2023-08-14 00:24:52 Doctor Unassigned, [place] [facility] POCT MOLECULAR FLU 2022-06-12 21:00:00 Hailey Berumen [facility] POCT MOLECULAR STREP 2022-06-12 20:57:00 Hailey Berumen [facility] ASSIGNMENT OF BENEFITS 2022-06-12 20:35:53 Docto r Unassigned, [place] [facility] Plan of Care Planned Activity Planned Date Details Comments Source Goal Plan of Care Note [code = 28390-3] Goal Plan of Care Note [code = 76058-6] Goal Plan of Care Note [code = 70560-1] Goal Plan of Care Note [code = 57622-2] Goal Plan of Care Note [code = 24456-9] Goal Plan of Care Note [code = 44657-8] Goal Plan of Care Note [code = 93724-0] Goal Plan of Care Note [code = 20036-3] Goal Plan of Care Note [code = 68109-1] Goal Plan of Care Note [code = 63978-7] Goal Plan of Care Note [code = 20922-7] Encounters Start Date/Time End Date/Time Encounter Type Admission Type Attending Clinicians Care Facility Care Department Encounter ID Source 2025-02-17 13:45:00 2025-02-17 13:45:00 Outpatient P [facility] [id number] [facility] 2025-01-18 00:00:00 2025-01-19 02:04:54 Orders Only Doctor Unassigned, [place] Doctor Unassigned, [place] [facility] ([place] [id number] [facility] 2025-01-13 00:00:00 2025-01-14 02:04:13 Orders Only Doctor Unassigned, [place] Doctor Unassigned, [place] [facility] ([place]) [id number] [facility] 2025-01-08 00:00:00 2025-01-08 00:00:00 Outpatient Visit [facility] [id number] Fam Almanzar 2025-01-05 13:30:00 2025-01-05 13:56:23 Outpatient R KRISTIN CASTELAN [facility] [id number] [facility] 2025-01-05 13:30:00 2025-01-05 13:56:23 Routine Visit Kristin Castelan [facility] 1.2.840.114 350.1.13.10 4.2.7.2.686 [id number] [facility] 2024-12-16 00:00:00 2024-12-16 10:53:54 Abstract Kristin Castelan [facility] 1.2.840.114 350.1.13.10 4.2.7.2.686 [id number] [facility] 2024-12-15 11:30:00 2024-12-15 16:25:52 Outpatient R CORTNEY SULLIVAN CHASEY [facility] [id number] [facility] 2024-12-15 11:30:00 2024-12-15 16:25:52 Insole Department 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 Visit Ultrasound, Cortney Garcia [facility] [place] [facility] & [facility] 1.2.840.114 350.1.13.10 4.2.7.2.686 [id number] [facility] 2024-12-08 00:00:00 2024-12-09 13:15:53 Refill Kristin Castelan [facility] [place] [facility] 1.2.840.114 350.1.13.10 4.2.7.2.686 [id number] [facility] 2024-12-08 14:30:00 2024-12-08 15:36:47 Outpatient R KRISTIN CASTELAN [facility] [id number] [facility] 2024-12-08 14:30:00 2024-12-08 15:36:47 Initial Visit Kristin Castelan [facility] [place] [facility] 1..840.114 350.1.13.10 4.2.7.2.686 [id number] [facility] 2024-11-30 16:42:23 2024-11-30 16:42:23 Outpatient SFA [facility] [id number] Fam F Yohan 2024-11-30 00:00:00 2024-11-30 00:00:00 Outpatient Visit [facility] [id number] Fam Ute Yohan 2024-11-27 20:00:00 2024-11-27 21:01:00 Emergency X BRETTMIKETONYA [facility] ERT [id number] [facility] 2024-10-19 14:39:18 2024-10-19 14:39:18 Outpatient [facility] [id number] Fam Ute Yohan 2024-10-19 00:00:00 2024-10-19 00:00:00 Outpatient Visit [facility] [id number] Fam Almanzar 2024-09-28 11:25:37 2024-09-28 11:25:37 Outpatient SFA [facility] [id number] Fam Almanzar 2024-09-28 00:00:00 2024-09-28 00:00:00 Outpatient Visit [facility] [id number] Fam Almanzar 2024-08-19 13:19:09 2024-08-19 13:19:09 Outpatient SFA [facility] [id number] Fam Almanzar 2024-08-19 00:00:00 2024-08-19 00:00:00 Outpatient Visit [facility] [id number] Fam Almanzar 2024-04-25 13:43:50 2024-04-25 13:43:50 Outpatient SFA [facility] [id number] Fam Almanzar 2024-04-25 00:00:00 2024-04-25 00:00:00 Outpatient Visit [facility] [id number] Fam Almanzar 2023-08-17 17:58:00 2023-08-17 22:42:00 Emergency X DAVID RODRIGUEZ PAMALA [facility] ERT [id number] [facility] 2023-08-17 17:58:00 2023-08-17 22:42:00 Emergency David Rodriguez [facility] 1.2.840.114 350.1.13.10 4.2.7.2.686 [id number] [facility] 2023-08-13 18:45:00 2023-08-14 00:41:00 Emergency X BHAKTI DAVALOS WAKILI [facility] ERT [id number] [facility] 2023-08-13 18:45:00 2023-08-14 00:41:00 Emergency Bhakti Davalos [facility] 1.840.114 350.1.13.10 4.2.7.2.686 [id number] [facility] 2023-07-08 14:40:53 2023-07-08 14:40:53 Outpatient [place] [id number] Fam Almanzar 2023-01-28 09:47:03 2023-01-28 09:47:03 Outpatient [facility] [id number] Fam Almanzar 2022-11-13 14:41:03 2022-11-13 14:41:03 Outpatient [facility] [id number] Fam Unger Van Dyne 2022-07-30 00:00:00 2022-07-30 00:00:00 Telephone Saba [facility] 1.840.114 350.1.13.10 4.2.7.2.686 [id number] [facility] 2022-07-26 00:00:00 2022-07-26 00:00:00 Patient Secure Msg Doctor Unassigned, [place] [facility] 1.840.114 350.1.13.10 4.2.7.2.686 [id number] [facility] 2022-07-13 16:29:54 2022-07-13 23:59:00 Outpatient R SABA ISRAEL [facility] [id number] [facility] 2022-07-13 16:29:54 2022-07-13 23:59:00 Hospital Encounter Saba Israel [facility] 1.840.114 350.1.13.10 4.2.7.2.686 [id number] [facility] 2022-07-03 16:30:00 2022-07-03 17:02:08 Outpatient R SABA ISRAEL [facility] [id number] [facility] 2022-07-03 16:30:00 2022-07-03 17:02:08 Office Visit Diandonavoncamryn MuSaba [facility] 1.2.840.114 350.1.13.10 4.2.7.2.686 [id number] [facility] 2022-06-12 16:00:00 2022-06-12 16:30:00 Office Visit Ata Hailey Abbe [facility] 1.2.840.114 350.1.13.10 4.2.7.2.686 [id number] [facility] 2022-06-12 16:00:00 2022-06-12 16:00:00 Outpatient HAILEY MCFARLAND [facility] [id number] [facility] 2022-06-12 00:00:00 2022-06-12 00:00:00 Orders Only Doctor Unassigned, [place] [facility] 1.2.840.114 350.1.13.10 4.2.7.2.686 [id number] [facility] 2022-03-28 00:00:00 2022-03-28 00:00:00 Outpatient Visit [id number] 2021-11-02 11:20:00 2021-11-02 11:20:00 Outpatient BI WOOTEN [facility] [id number] [facility] 2021-11-02 11:00:00 2021-11-02 11:00:00 Outpatient BI WOOTEN [facility] [id number] [facility] 2021-10-19 14:00:00 2021-10-19 14:00:00 Outpatient BI WOOTEN [facility] [id number] [facility] 2021-05-29 00:00:00 2021-05-29 00:00:00 Patient Secure Msg Doctor Unassigned, [place] [facility] 1.2.840.114 350.1.13.10 4.2.7.2.686 [id number] [facility] 2021-05-29 00:00:00 2021-05-29 00:00:00 Letter (Out) Bl[place], [facility] 1.2840.114 350.1.13.10 4.2.7.2.686 [id number] [facility] 2021-05-29 00:00:00 2021-05-29 00:00:00 Letter (Out) Blaine, [facility] 1.2.840.114 350.1.13.10 4.2.7.2.686 [id number] [facility] 2021-05-29 00:00:00 2021-05-29 00:00:00 Telephone Pcp, Patient Does Not Have A [facility] 1.2.840.114 350.1.13.10 4.2.7.2.686 [id number] [facility] 2021-05-28 15:00:00 2021-05-28 15:00:00 Outpatient R [facility] [id number] [facility] 2021-05-28 13:21:41 2021-05-28 13:36:41 Laboratory Only Only, Ang Db Test Ry Tothssica [facility] 1.2.840.114 350.1.13.10 4.2.7.2.686 [id number] [facility] 2021-05-28 13:25:00 2021-05-28 13:25:00 Outpatient R ALBERT TOTH [facility] [id number] [facility] 2021-03-01 09:20:00 2021-03-01 09:20:00 Outpatient R [facility] [id number] [facility] 2021-01-27 00:00:00 2021-01-27 00:00:00 Patient Secure Karl Mars [facility] [place] 1.2.840.114 350.1.13.10 4.2.7.2.686 [id number] [facility] 2021-01-25 18:40:00 2021-01-25 18:40:00 Outpatient R [facility] [id number] [facility] Results Test Description Test Time Test Comments Results Resul t Comments Source NIPT - NON-INVASIVE TEST RESULTS 2025-01-18 19:10:34 Ordered by an unspecified provider. [facility] NIPT - NON-INVASIVE TEST RESULTS 2025-01-13 14:58:52 [facility] an unspecified provider[id number] 19:37:00* Test Item Value Reference Range Interpretation Comme nts POCT PREG (test code = 1605) Positive On board controls acceptable with C Line (test code = 3574) Yes POCT PREG LOT # (test code = 3575) POCT PREG TEST DATE ( test code = 3576) [facility], [id number] 00:00:00* Test Item Value Reference Range Interpretation Comme nts HCG, TOTAL, QN (test code = 23222-2) 176446 mIU/mL Fam F AustinHCG, TOTAL, [id number] 00:00:00* Test Item Value Reference Range Interpretation Comme nts HCG, TOTAL, QN (test code = 59768-7) 365388 mIU/mL Fam F AustinVAGINAL PATHOGENS DNA [id number] 15:59:47* Test Item Value Reference Range Interpretation Comme nts ROSA SPECIES (test code = 54566) POSITIVE NEGATIVE A G. VAGINALIS (test code = 73954) NEGATIVE NEGATIVE T. VAGINALIS (test code = 85032) NEGATIVE NEGATIVE Note: [facility] irm VPIII Microbial Identification Testis a DNA probe test intended for use in the detectionand identification of Rosa species, Gardnerellavaginalis and Trichomonas vaginalis nucleic acid. UNLESS OTHERWISE INDICATED, ALL TESTING PERFORMED AT [facility] [address] [place] [address] TOOL TURRET LATHE SET UP OPERATOR: Waylon GREEN NUMBER [id number] [place]. [id number] VAGINAL PATHOGENS DNA [id number] 00:00:00* Test Item Value Reference Range Interpretation Comme nts ROSA SPECIES (test code = 07186) POSITIVE G. VAGINALIS (test code = 64655) NEGATIVE T. VAGINALIS (test code = 67377) NEGATIVE Fam F AustinVAGINAL PATHOGENS DNA [id number] 00:00:00* Test Item Value Reference Range Interpretation Comme nts RSOA SPECIES (test code = 16840) POSITIVE G. VAGINALIS (test code = 12965) NEGATIVE T. VAGINALIS (test code = 70774) NEGATIVE Fam F AustinVAGINAL PATHOGENS DNA [id number] 15:05:58* Test Item Value Reference Range Interpretation Comme nts ROSA SPECIES (test code = 48555) NEGATIVE NEGATIVE G. VAGINALIS (test code = 47059) POSITIVE NEGATIVE A T. VAGINALIS (test code = 19551) NEGATIVE NEGATIVE Note: [facility] VPIII Microbial Identification Testis a DNA probe test intended for use in the detectionand identification of Rosa species, Gardnerellavaginalis and Trichomonas vaginalis nucleic acid. UNLESS OTHERWISE INDICATED, ALL TESTING PERFORMED AT [facility] [address] [place] [address] TOOL TURRET LATHE SET UP OPERATOR: Waylon GREENIA NUMBER [id number] [place]. [id number] VAGINAL PATHOGENS DNA [id number] 00:00:00* Test Item Value Reference Range Interpretation Comme nts ROSA SPECIES (test code = 48779) NEGATIVE G. VAGINALIS (test code = 63269) POSITIVE T. VAGINALIS (test code = 66299) NEGATIVE Fam F AustinVAGINAL PATHOGENS DNA [id number] 00:00:00* Test Item Value Reference Range Interpretation Comme nts ROSA SPECIES (test code = 58638) NEGATIVE G. VAGINALIS (test code = 47543) POSITIVE T. VAGINALIS (test code = 00789) NEGATIVE Fam F AustinVAGINAL PATHOGENS DNA [id number] 00:00:00* Test Item Value Reference Range Interpretation Comme nts ROSA SPECIES (test code = 75879) NEGATIVE G. VAGINALIS (test code = 27581) POSITIVE T. VAGINALIS (test code = 40647) NEGATIVE Fam Unger AustinCT/NG, NAAT, [id number] 22:24:35* Test Item Value Reference Range Interpretation Comme nts CHLAMYDIA, NAAT, URINE (test code = 32203) NEGATIVE NEGATIVE Testing is perfo rmed with Velia SATISH 6800/8800 systems usingreal-time polymerase chain reaction (PCR) method. A negative result does not exclude low level infection, specimensampling error, or collection error. GONORRHEA, NAAT, URINE (test code = 51125) NEGATIVE NEGATIVE Testing is perfo rmed with [employer] SATISH 6800/8800 systems usingreal-time polymerase chain reaction (PCR) method. A negative result does not exclude low level infection, specimensampling error, or collection error. TRICHOMONAS, NAAT, [id number] 22:08:05* Test Item Value Reference Range Interpretation Comme nts TRICHOMONAS, NAAT, URINE (test code = 35612) NEGATIVE NEGATIVE Testing is perfo rmed with [employer] SATISH 6800/8800 method usingreal-time polymerase chain reaction (PCR) method. A negative result does not exclude low level infection, specimensampling error, or collection error. HIV 1/2 4TH GEN, RFLX [id number] 04:38:17* Test Item Value Reference Range Interpretation Comme nts HIV 1/2 4TH GEN, RFLX CONF ( test code = 3514) NON-REACTIVE NON-REACTIVE HEPATITIS PANEL, [id number] 04:38:17* Test Item Value Reference Range Interpretation [...] infection. INTERPRETATION HEPATITIS B: (test code = 28027) (NOTE) Hepatitis B sero logy shows no evidence of past exposure to orcurrent infection with hepatitis B virus. No evidence of hepatitis Bimmunization is identified. INTERPRETATION HEPATITIS C: (test code = 02255) (NOTE) Hepatitis C sero logy shows no evidence of exposure to hepatitisC virus at this time. It can take up to 12 months after exposure tothe hepatitis C virus for antibodies to become detectable in the blood in certain patients. HEPATITIS A [id number] 04:38:17* Test Item Value Reference Range Interpretation Comme nts HEPATITIS A IgM (test code = 2728) NON-REACTIVE NON-REACTIVE UNLESS OTHERW ISE INDICATED, ALL TESTING PERFORMED AT [facility] [address] [place] [address] TOOL TURRET LATHE SET UP OPERATOR: NO MELGAR M.D. CLIA NUMBER [id number] [facility] [place]. [id number] 03:24:20* Test Item Value Reference Range Interpretation Comme nts RPR RESULT (test code = 3501) NON-REACTIVE NON-REACTIVE RPR TITER (test code = 3500) NOT INDIC. TITER NOT INDIC. CT/NG, NAAT, [id number] 00:00:00* Test Item Value Reference Range Interpretation Comme nts CHLAMYDIA, NAAT, URINE (test code = 71930) NEGATIVE GONORRHEA, NAAT, URINE (test code = 61460) NEGATIVE Fam Unger AustinHIV 1/2 4TH GEN, RFLX [id number] 00:00:00* Test Item Value Reference Range Interpretation Comme nts HIV 1/2 4TH GEN, RFLX CONF ( test code = 3514) NON-REACTIVE Fam AlmanzarTRICHOMONAS, URINE, [id number] 00:00:00* Test Item Value Reference Range Interpretation Comme nts TRICHOMONAS, NAAT, URINE (te st code = 80853) NEGATIVE Fam F [id number] 00:00:00* Test Item Value Reference Range Interpretation [...] (NOTE) INTERPRETATION HEPATITIS B: (test code = 63712) (NOTE) INTERPRETATION HEPATITIS C: (test code = 09639) (NOTE) Fam AlmanzarHEPATITIS A IgM [REFLEX]2024-08-20 00:00:00* Test Item Value Reference Range Interpretation Comme nts HEPATITIS A IgM (test code = 2728) NON-REACTIVE Fam AlmanzarCT/NG, NAAT, [id number] 00:00:00* Test Item Value Reference Range Interpretation Comme nts CHLAMYDIA, NAAT, URINE (test code = 89827) NEGATIVE GONORRHEA, NAAT, URINE (test code = 55776) NEGATIVE Fam AlmanzarHIV 1/2 4TH GEN, RFLX [id number] 00:00:00* Test Item Value Reference Range Interpretation Comme nts HIV 1/2 4TH GEN, RFLX CONF ( test code = 3514) NON-REACTIVE Fam AlmanzarTRICHOMONAS, URINE, [id number] 00:00:00* Test Item Value Reference Range Interpretation Comme nts TRICHOMONAS, NAAT, URINE (te st code = 31737) NEGATIVE Fam [id number] 00:00:00* Test Item Value Reference Range Interpretation [...] (NOTE) INTERPRETATION HEPATITIS B: (test code = 35395) (NOTE) INTERPRETATION HEPATITIS C: (test code = 56808) (NOTE) Fam DurhamPATITIS A IgM [REFLEX]2024-08-20 00:00:00* Test Item Value Reference Range Interpretation Comme nts HEPATITIS A IgM (test code = 2728) NON-REACTIVE Fam Unger AustinCT/NG, NAAT, [id number] 00:00:00* Test Item Value Reference Range Interpretation Comme nts CHLAMYDIA, NAAT, URINE (test code = 71072) NEGATIVE GONORRHEA, NAAT, URINE (test code = 12076) NEGATIVE Fam Unger AustinHIV 1/2 4TH GEN, RFLX [id number] 00:00:00* Test Item Value Reference Range Interpretation Comme nts HIV 1/2 4TH GEN, RFLX CONF ( test code = 3514) NON-REACTIVE Fam AlmanzarTRICHOMONAS, URINE, [id number] 00:00:00* Test Item Value Reference Range Interpretation Comme nts TRICHOMONAS, NAAT, URINE (te st code = 26296) NEGATIVE Fam [id number] 00:00:00* Test Item Value Reference Range Interpretation Comme nts RPR RESULT (test code = 3501) NON-REACTIVE RPR TITER (test code = 3500) NOT INDIC. TITER Fam DurhamPATITIS PROFILE (A,B,C)2024-08-20 00:00:00* Test Item Value Reference [...] (NOTE) INTERPRETATION HEPATITIS B: (test code = 45979) (NOTE) INTERPRETATION HEPATITIS C: (test code = 25061) (NOTE) Fam DurhamPATITIS A IgM [REFLEX]2024-08-20 00:00:00* Test Item Value Reference Range Interpretation Comme nts HEPATITIS A IgM (test code = 2728) NON-REACTIVE Fam Unger AustinCT/NG, NAAT, [id number] 00:00:00* Test Item Value Reference Range Interpretation Comme nts CHLAMYDIA, NAAT, URINE (test code = 96336) NEGATIVE GONORRHEA, NAAT, URINE (test code = 51093) NEGATIVE Fam Unger AustinHIV 1/2 4TH GEN, RFLX [id number] 00:00:00* Test Item Value Reference Range Interpretation Comme nts HIV 1/2 4TH GEN, RFLX CONF ( test code = 3514) NON-REACTIVE Fam AlmanzarTRICHOMONAS, URINE, [id number] 00:00:00* Test Item Value Reference Range Interpretation Comme nts TRICHOMONAS, NAAT, URINE (te st code = 51811) NEGATIVE Fam [id number] 00:00:00* Test Item Value Reference Range Interpretation [...] (NOTE) INTERPRETATION HEPATITIS B: (test code = 24575) (NOTE) INTERPRETATION HEPATITIS C: (test code = 86311) (NOTE) Fam Unger AustinHEPATITIS A IgM [REFLEX]2024-08-20 00:00:00* Test Item Value Reference Range Interpretation Comme nts HEPATITIS A IgM (test code = 2728) NON-REACTIVE Fam Unger AustinCT/NG, NAAT, [id number] 15:25:07* Test Item Value Reference Range Interpretation Comme nts CHLAMYDIA, NAAT, URINE (test code = 90934) NEGATIVE NEGATIVE Testing is perfo rmed with [employer] SATISH 6800/8800 systems usingreal-time polymerase chain reaction (PCR) method. A negative result does not exclude low level infection, specimensampling error, or collection error. GONORRHEA, NAAT, URINE (test code = 83974) NEGATIVE NEGATIVE Testing is perfo rmed with [employer] SATISH 6800/8800 systems usingreal-time polymerase chain reaction (PCR) method. A negative result does not exclude low level infection, specimensampling error, or collection error. UNLESS OTHERWISE INDICATED, ALL TESTING PERFORMED AT [facility] [address] [place] [address] TOOL TURRET LATHE SET UP OPERATOR: NO MELGAR M.D. CLIA NUMBER [id number] [facility]. [id number] CT/NG, NAAT, [id number] 00:00:00* Test Item Value Reference Range Interpretation Comme nts CHLAMYDIA, NAAT, URINE (test code = 95956) NEGATIVE GONORRHEA, NAAT, URINE (test code = 33161) NEGATIVE Fam F AustinCT/NG, NAAT, [id number] 00:00:00* Test Item Value Reference Range Interpretation Comme nts CHLAMYDIA, NAAT, URINE (test code = 27646) NEGATIVE GONORRHEA, NAAT, URINE (test code = 46166) NEGATIVE Fam F AustinCT/NG, NAAT, [id number] 00:00:00* Test Item Value Reference Range Interpretation Comme nts CHLAMYDIA, NAAT, URINE (test code = 57937) NEGATIVE GONORRHEA, NAAT, URINE (test code = 49506) NEGATIVE Fam F AustinCT/NG, NAAT, [id number] 00:00:00* Test Item Value Reference Range Interpretation Comme nts CHLAMYDIA, NAAT, URINE (test code = 74552) NEGATIVE GONORRHEA, NAAT, URINE (test code = 02523) NEGATIVE Fam F AustinCT/NG, NAAT, [id number] 00:00:00* Test Item Value Reference Range Interpretation Comme nts CHLAMYDIA, NAAT, URINE (test code = 04348) NEGATIVE GONORRHEA, NAAT, URINE (test code = 34125) NEGATIVE Fam F AustinCT/NG, NAAT, [id number] 00:00:00* Test Item Value Reference Range Interpretation Comme nts CHLAMYDIA, NAAT, URINE (test code = 86375) NEGATIVE GONORRHEA, NAAT, URINE (test code = 08635) NEGATIVE Fam Unger AustinPREGNANCY TEST, [id number] 02:25:38* Test Item Value Reference Range Interpretation Comme nts PREG SERUM (test code = 7562208923) Positive BEE (test code = BEE) Positive greater t jackson or equal to 10 IU/L hCG. [facility] (Lab Only)2023-08-18 01:40:00* Test Item Value Reference Range Interpretation Comme nts ABO & RH (test code = 20) O Positive [facility] BETA HCG [id number] 01:29:04* Test Item Value Reference Range Interpretation Comme nts BETA HCG (test code = 0881757689) 47550.00 See_Comment [Automated [employer]] The system which generated this result transmitted reference range: Non- female and male patients: <5 mIU/mL. The reference range was not used to interpret this result as normal/abnormal. BEE (test code = BEE) Gestational Age ?Range (mIU/mL) 1-10 ?Weeks ?10-52424390-86 Weeks ?85659-26782257-96 Weeks ?2566-68642729-82 Weeks ?2508-568589 Biotin has been reported to cause a negative bias, interpret results relative to patient's use of biotin. [facility]. METABOLIC PANEL (14232)2023-08-18 00:43:44* Test Item Value Reference Range Interpretation Comme nts NA (test code = 0441992749) 138 mmol/L 135-145 K (test code = 9140712114) 3.8 mmol/L 3.5-5.0 CL (test code = 5208961576) 104 mmol/L 98-108 CO2 TOTAL (test code = 8309718785) 27 mmol/L 23-31 AGAP (test code = 6558234661) 7 2-16 BUN (test code = 2357213479) 9 mg/dL 7-23 GLUCOSE (test code = 1977419407) 92 mg/dL 70-110 CREATININE (test code = 6195180193) 0.46 mg/dL 0.50-1.04 L TOTAL BILI (test code = 3626254995) 0.5 mg/dL 0.1-1.1 CALCIUM (test code = 7867550137) 9.6 mg/dL 8.6-10.6 T PROTEIN (test code = 4804982569) 7.3 g/dL 6.3-8.2 ALBUMIN (test code = 8231124779) 4.2 g/dL 3.5-5.0 ALK PHOS (test code = 9295976593) 66 U/L 34-122 ALTv (test code = 1742-6) 34 U/L 5-35 AST(SGOT) (test code = 1731738158) 44 U/L 13-40 H eGFR (test code = 60133-8) 142.5 mL/min/1.73m2 CKD-EPI eGFR (2020). Assuming creatinine has been stable day-to-day for at least three months, the eGFR indicates Category G1 (>= 90 mL/min/1.73 m2) Lab Interpretation (test code = 57467-0) Abnormal [facility] WITH [id number] 00:31:46* Test Item Value Reference Range Interpretation Comme nts WBC (test code = 6690-2) 11.06 See_Comment [Automated Biodesy] The system which generated this result transmitted reference range: 4.50 - 13.50 10*3/?L. The reference range was not used to interpret this result as normal/abnormal. RBC (test code = 789-8) 4.63 See_Comment [Automated Biodesy] The system which generated this result transmitted [...] 33.2 g/dL 32.0-36.0 RDW-SD (test code = 11184-5) 39.4 fL 38.5-49.0 RDW-CV (test code = 788-0) 13.0 % 11.5-14.0 PLT (test code = 777-3) 287 See_Comment [Automated messa ge] The system which generated this result transmitted reference range: 135 - 361 10*3/?L. The reference range was not used to interpret this result as normal/abnormal. MPV (test code = 30209-0) 10.7 fL 9.4-13.3 NRBC/100 WBC (test code = 7538442728) 0.0 See_Comment [Automated [place] ssage] The system which generated this result transmitted reference range: 0.0 - 10.0 /100 WBCs. The reference range was not used to interpret this result as normal/abnormal. NRBC x10^3 (test code = 8388110609) See_Comment [Automated messa ge] The system which generated this result transmitted reference range: 10*3/?L. The reference range was not used to interpret this result as normal/abnormal. GRAN MAT (NEUT) % (test code = 770-8) 73.7 % IMM GRAN % (test code = 0500777620) 0.30 % LYMPH % (test code = 736-9) 15.9 % MONO % (test code = 5905-5) 8.3 % EOS % (test code = 713-8) 1.5 % BASO % (test code = 706-2) 0.3 % GRAN MAT x10^3(ANC) (test code = [id number]) 8.15 10*3/uL 1.50-10.30 IMM GRAN x10^3 (test code = 3202432579) 0.03 10*3/uL 0.00-0.06 LYMPH x10^3 (test code = 731-0) 1.76 10*3/uL 0.70-7.40 MONO x10^3 (test code = 742-7) 0.92 10*3/uL 0.00-0.50 H EOS x10^3 (test code = 711-2) 0.17 10*3/uL 0.00-0.40 BASO x10^3 (test code = 704-7) 0.03 10*3/uL 0.00-0.10 Lab Interpretation (test code = 73936-7) [facility] [id number] 00:28:00 * Test Item Value Reference Range Interpretation Comme nts ABO & RH (test code = 20) O Positive IAT (test code = 1185) Negative [facility], NAAT, [id number] 20:38:18* Test Item Value Reference Range Interpretation Comme nts CHLAMYDIA, NAAT, URINE (test code = 83788) NEGATIVE NEGATIVE Testing is perfo rmed with Velia SATISH 6800/8800 systems usingreal-time polymerase chain reaction (PCR) method. A negative result does not exclude low level infection, specimensampling error, or collection error. GONORRHEA, NAAT, URINE (test code = 80035) NEGATIVE NEGATIVE Testing is perfo rmed with Velia SATISH 6800/8800 systems usingreal-time polymerase chain reaction (PCR) method. A negative result does not exclude low level infection, specimensampling error, or collection error. VAGINAL PATHOGENS DNA [id number] 15:19:00* Test Item Value Reference Range Interpretation Comme nts ROSA SPECIES (test code = 92520) NEGATIVE NEGATIVE G. VAGINALIS (test code = 74928) POSITIVE NEGATIVE A T. VAGINALIS (test code = 39104) NEGATIVE NEGATIVE Note: [facility] VPIII Microbial Identification Testis a DNA probe test intended for use in the detectionand identification of Rosa species, Gardnerellavaginalis and Trichomonas vaginalis nucleic acid. HERPES SIMPLEX AB, [id number] 13:00:18* Test Item Value Reference Range Interpretation Comme nts HERPES SIMPLEX AB, IgM (test code = 28832) 0.70 INDEX SEE BELOW INTERPRETATION U NITS RANGE ----- ----- NEGATIVE INDEX <=0.89 EQUIVOCAL INDEX 0.90-1.09 POSITIVE INDEX >=1.10 HERPES SIMPLEX 1/2 AB, IgG [id number] 06:53:36* Test Item Value Reference Range Interpretation Comme nts HERPES SIMPLEX 1 AB, IgG (test code = 89038) 0.507 INDEX SEE BELOW INTERPRETATION U NITS RANGE ----- ----- NON-REACTIVE INDEX <1.000 REACTIVE INDEX >=1.000 HERPES SIMPLEX 2 AB, IgG (test code = 03547) 0.076 INDEX SEE BELOW INTERPRETATION U NITS RANGE ----- ----- NON-REACTIVE INDEX <1.000 REACTIVE INDEX >=1.000 HIV 1/2 4TH GEN, RFLX [id number] 06:53:36* Test Item Value Reference Range Interpretation Comme nts HIV 1/2 4TH GEN, RFLX CONF ( test code = 3514) NON-REACTIVE NON-REACTIVE HEPATITIS PANEL, [id number] 06:53:36* Test Item Value Reference Range Interpretation Comme nts HEPATITIS A IgM (test code = 20754) NON-REACTIVE NON-REACTIVE HEPATITIS B CORE IgM (test code = 4644) NON-REACTIVE NON-REACTIVE HEPATITIS B SURF AG (test code = 2739) NON-REACTIVE NON-REACTIVE HEPATITIS C ANTIBODY (test code = 4675) NON-REACTIVE NON-REACTIVE INTERPRETATION HEPATITIS A: (test code = 2552) (NOTE) Hepatitis A serology shows no evidence of acute hepatitis A. INTERPRETATION HEPATITIS B: (test code = 80491) (NOTE) Hepatitis B serology shows no evidence of acute hepatitis B andno indication of exposure to hepatitis B virus in the previous hina eight months. INTERPRETATION HEPATITIS C: (test code = 89090) (NOTE) Hepatitis C serology shows no evidence of exposure to hepatitisC virus at this time. It can take up to 12 months after exposure tothe hepatitis C virus for antibodies to become detectable in the blood in certain patients. [id number] 04:02:01* Test Item Value Reference Range Interpretation Comme nts RPR RESULT (test code = 3501) NON-REACTIVE NON-REACTIVE RPR TITER (test code = 3500) NOT INDIC. TITER NOT INDIC. UNLESS OTHERWISE INDICATED, ALL TESTING PERFORMED AT [facility] [address] [place] [address] TOOL TURRET LATHE SET UP OPERATOR: NO MELGAR M.D. [place] NUMBER [id number] [facility] [place]. [id number] HERPES SIMPLEX [id number] 00:00:00* Test Item Value Reference Range Interpretation Comme nts HERPES SIMPLEX AB, IgM (test code = 16458) 0.70 INDEX Fam AlmanzarHERPES SIMPLEX 1/2 [id number] 00:00:00* Test Item Value Reference Range Interpretation Comme nts HERPES SIMPLEX 1 AB, IgG (te st code = 46301) 0.507 INDEX HERPES SIMPLEX 2 AB, IgG (te st code = 06192) 0.076 INDEX Fam AlmanzarVAGINAL PATHOGENS DNA [id number] 00:00:00* Test Item Value Reference Range Interpretation Comme nts ROSA SPECIES (test code = 48657) NEGATIVE G. VAGINALIS (test code = 70060) POSITIVE T. VAGINALIS (test code = 86492) NEGATIVE Fam AlmanzarHIV 1/2 4TH GEN, RFLX [id number] 00:00:00* Test Item Value Reference Range Interpretation Comme nts HIV 1/2 4TH GEN, RFLX CONF ( test code = 3514) NON-REACTIVE Fam AlmanzarACUTE HEPATITIS [id number] 00:00:00* Test Item Value Reference Range Interpretation Comme nts HEPATITIS A IgM (test code = 12190) NON-REACTIVE HEPATITIS B CORE IgM (test c ode = 4644) NON-REACTIVE HEPATITIS B SURF AG (test co de = 2739) NON-REACTIVE HEPATITIS C ANTIBODY (test c ode = 4675) NON-REACTIVE INTERPRETATION HEPATITIS A: (test code = 2552) (NOTE) INTERPRETATION HEPATITIS B: (test code = 08941) (NOTE) INTERPRETATION HEPATITIS C: (test code = 11638) (NOTE) Fam AlmanzarCT/NG, TMA, [id number] 00:00:00* Test Item Value Reference Range Interpretation Comme nts CHLAMYDIA, NAAT, URINE (test code = 71701) NEGATIVE GONORRHEA, NAAT, URINE (test code = 75949) NEGATIVE Fam [id number] 00:00:00* Test Item Value Reference Range Interpretation Comme nts RPR RESULT (test code = 3501) NON-REACTIVE RPR TITER (test code = 3500) NOT INDIC. TITER Fam PenaPES SIMPLEX [id number] 00:00:00* Test Item Value Reference Range Interpretation Comme nts HERPES SIMPLEX AB, IgM (test code = 41933) 0.70 INDEX Fam AlmanzarHERPES SIMPLEX 1/2 [id number] 00:00:00* Test Item Value Reference Range Interpretation Comme nts HERPES SIMPLEX 1 AB, IgG (te st code = 17228) 0.507 INDEX HERPES SIMPLEX 2 AB, IgG (te st code = 01875) 0.076 INDEX Fam AlmanzarVAGINAL PATHOGENS DNA [id number] 00:00:00* Test Item Value Reference Range Interpretation Comme nts ROSA SPECIES (test code = 06528) NEGATIVE G. VAGINALIS (test code = 87859) POSITIVE T. VAGINALIS (test code = 12615) NEGATIVE Fam AlmanzarHIV 1/2 4TH GEN, RFLX [id number] 00:00:00* Test Item Value Reference Range Interpretation Comme nts HIV 1/2 4TH GEN, RFLX CONF ( test code = 3514) NON-REACTIVE Fam AlmanzarACUTE HEPATITIS [id number] 00:00:00* Test Item Value Reference Range Interpretation Comme nts HEPATITIS A IgM (test code = 32433) NON-REACTIVE HEPATITIS B CORE IgM (test c ode = 4644) NON-REACTIVE HEPATITIS B SURF AG (test co de = 2739) NON-REACTIVE HEPATITIS C ANTIBODY (test c ode = 4675) NON-REACTIVE INTERPRETATION HEPATITIS A: (test code = 2552) (NOTE) INTERPRETATION HEPATITIS B: (test code = 44471) (NOTE) INTERPRETATION HEPATITIS C: (test code = 42015) (NOTE) Fam AlmanzarCT/NG, TMA, [id number] 00:00:00* Test Item Value Reference Range Interpretation Comme nts CHLAMYDIA, NAAT, URINE (test code = 97315) NEGATIVE GONORRHEA, NAAT, URINE (test code = 25541) NEGATIVE Fam [id number] 00:00:00* Test Item Value Reference Range Interpretation Comme nts RPR RESULT (test code = 3501) NON-REACTIVE RPR TITER (test code = 3500) NOT INDIC. TITER Fam AlmanzarHERPES SIMPLEX [id number] 00:00:00* Test Item Value Reference Range Interpretation Comme nts HERPES SIMPLEX AB, IgM (test code = 11142) 0.70 INDEX Fam AlmanzarHERPES SIMPLEX 1/2 [id number] 00:00:00* Test Item Value Reference Range Interpretation Comme nts HERPES SIMPLEX 1 AB, IgG (te st code = 26381) 0.507 INDEX HERPES SIMPLEX 2 AB, IgG (te st code = 02355) 0.076 INDEX Fam AlmanzarVAGINAL PATHOGENS DNA [id number] 00:00:00* Test Item Value Reference Range Interpretation Comme nts ROSA SPECIES (test code = 48650) NEGATIVE G. VAGINALIS (test code = 76938) POSITIVE T. VAGINALIS (test code = 34837) NEGATIVE Fam AlmanzarHIV 1/2 4TH GEN, RFLX [id number] 00:00:00* Test Item Value Reference Range Interpretation Comme nts HIV 1/2 4TH GEN, RFLX CONF ( test code = 3514) NON-REACTIVE Fam AlmanzarACUTE HEPATITIS [id number] 00:00:00* Test Item Value Reference Range Interpretation Comme nts HEPATITIS A IgM (test code = 06895) NON-REACTIVE HEPATITIS B CORE IgM (test c ode = 4644) NON-REACTIVE HEPATITIS B SURF AG (test co de = 2739) NON-REACTIVE HEPATITIS C ANTIBODY (test c ode = 4675) NON-REACTIVE INTERPRETATION HEPATITIS A: (test code = 2552) (NOTE) INTERPRETATION HEPATITIS B: (test code = 06055) (NOTE) INTERPRETATION HEPATITIS C: (test code = 50328) (NOTE) Fam AlmanzarCT/NG, TMA, [id number] 00:00:00* Test Item Value Reference Range Interpretation Comme nts CHLAMYDIA, NAAT, URINE (test code = 55852) NEGATIVE GONORRHEA, NAAT, URINE (test code = 51289) NEGATIVE Fam [id number] 00:00:00* Test Item Value Reference Range Interpretation Comme nts RPR RESULT (test code = 3501) NON-REACTIVE RPR TITER (test code = 3500) NOT INDIC. TITER Fam AlmanzarHERPES SIMPLEX [id number] 00:00:00* Test Item Value Reference Range Interpretation Comme nts HERPES SIMPLEX AB, IgM (test code = 63804) 0.70 INDEX Fam AlmanzarHERPES SIMPLEX 1/2 [id number] 00:00:00* Test Item Value Reference Range Interpretation Comme nts HERPES SIMPLEX 1 AB, IgG (te st code = 75520) 0.507 INDEX HERPES SIMPLEX 2 AB, IgG (te st code = 97799) 0.076 INDEX Fam AlmanzarVAGINAL PATHOGENS DNA [id number] 00:00:00* Test Item Value Reference Range Interpretation Comme nts ROSA SPECIES (test code = 08835) NEGATIVE G. VAGINALIS (test code = 55962) POSITIVE T. VAGINALIS (test code = 23835) NEGATIVE Fam AlmanzarHIV 1/2 4TH GEN, RFLX [id number] 00:00:00* Test Item Value Reference Range Interpretation Comme nts HIV 1/2 4TH GEN, RFLX CONF ( test code = 3514) NON-REACTIVE Fam AlmanzarACUTE HEPATITIS [id number] 00:00:00* Test Item Value Reference Range Interpretation Comme nts HEPATITIS A IgM (test code = 25087) NON-REACTIVE HEPATITIS B CORE IgM (test c ode = 4644) NON-REACTIVE HEPATITIS B SURF AG (test co de = 2739) NON-REACTIVE HEPATITIS C ANTIBODY (test c ode = 4675) NON-REACTIVE INTERPRETATION HEPATITIS A: (test code = 2552) (NOTE) INTERPRETATION HEPATITIS B: (test code = 48261) (NOTE) INTERPRETATION HEPATITIS C: (test code = 60204) (NOTE) Fam AlmanzarCT/NG, TMA, [id number] 00:00:00* Test Item Value Reference Range Interpretation Comme nts CHLAMYDIA, NAAT, URINE (test code = 02854) NEGATIVE GONORRHEA, NAAT, URINE (test code = 51202) NEGATIVE Fam [id number] 00:00:00* Test Item Value Reference Range Interpretation Comme nts RPR RESULT (test code = 3501) NON-REACTIVE RPR TITER (test code = 3500) NOT INDIC. TITER Fam AlmanzarHERPES SIMPLEX [id number] 00:00:00* Test Item Value Reference Range Interpretation Comme nts HERPES SIMPLEX AB, IgM (test code = 76025) 0.70 INDEX Fam AlmanzarHERPES SIMPLEX 1/2 [id number] 00:00:00* Test Item Value Reference Range Interpretation Comme nts HERPES SIMPLEX 1 AB, IgG (te st code = 22604) 0.507 INDEX HERPES SIMPLEX 2 AB, IgG (te st code = 83815) 0.076 INDEX Fam AlmanzarVAGINAL PATHOGENS DNA [id number] 00:00:00* Test Item Value Reference Range Interpretation Comme nts ROSA SPECIES (test code = 61822) NEGATIVE G. VAGINALIS (test code = 32736) POSITIVE T. VAGINALIS (test code = 53005) NEGATIVE Fam AlmanzarHIV 1/2 4TH GEN, RFLX [id number] 00:00:00* Test Item Value Reference Range Interpretation Comme nts HIV 1/2 4TH GEN, RFLX CONF ( test code = 3514) NON-REACTIVE Fam AlmanzarACUTE HEPATITIS [id number] 00:00:00* Test Item Value Reference Range Interpretation Comme nts HEPATITIS A IgM (test code = 52811) NON-REACTIVE HEPATITIS B CORE IgM (test c ode = 4644) NON-REACTIVE HEPATITIS B SURF AG (test co de = 2739) NON-REACTIVE HEPATITIS C ANTIBODY (test c ode = 4675) NON-REACTIVE INTERPRETATION HEPATITIS A: (test code = 2552) (NOTE) INTERPRETATION HEPATITIS B: (test code = 27833) (NOTE) INTERPRETATION HEPATITIS C: (test code = 27737) (NOTE) Fam AlmanzarCT/NG, TMA, [id number] 00:00:00* Test Item Value Reference Range Interpretation Comme nts CHLAMYDIA, NAAT, URINE (test code = 81175) NEGATIVE GONORRHEA, NAAT, URINE (test code = 98410) NEGATIVE Fam [id number] 00:00:00* Test Item Value Reference Range Interpretation Comme nts RPR RESULT (test code = 3501) NON-REACTIVE RPR TITER (test code = 3500) NOT INDIC. TITER Fam AlmanzarHERPES SIMPLEX [id number] 00:00:00* Test Item Value Reference Range Interpretation Comme nts HERPES SIMPLEX AB, IgM (test code = 49224) 0.70 INDEX Fam AlmanzarHERPES SIMPLEX 1/2 [id number] 00:00:00* Test Item Value Reference Range Interpretation Comme nts HERPES SIMPLEX 1 AB, IgG (te st code = 75438) 0.507 INDEX HERPES SIMPLEX 2 AB, IgG (te st code = 85399) 0.076 INDEX Fam AlmanzarVAGINAL PATHOGENS DNA [id number] 00:00:00* Test Item Value Reference Range Interpretation Comme nts ROSA SPECIES (test code = 55977) NEGATIVE G. VAGINALIS (test code = 93329) POSITIVE T. VAGINALIS (test code = 95592) NEGATIVE Fam AlmanzarHIV 1/2 4TH GEN, RFLX [id number] 00:00:00* Test Item Value Reference Range Interpretation Comme nts HIV 1/2 4TH GEN, RFLX CONF ( test code = 3514) NON-REACTIVE Fam AlmanzarACUTE HEPATITIS [id number] 00:00:00* Test Item Value Reference Range Interpretation Comme nts HEPATITIS A IgM (test code = 35478) NON-REACTIVE HEPATITIS B CORE IgM (test c ode = 4644) NON-REACTIVE HEPATITIS B SURF AG (test co de = 2739) NON-REACTIVE HEPATITIS C ANTIBODY (test c ode = 4675) NON-REACTIVE INTERPRETATION HEPATITIS A: (test code = 2552) (NOTE) INTERPRETATION HEPATITIS B: (test code = 61953) (NOTE) INTERPRETATION HEPATITIS C: (test code = 35115) (NOTE) Fam AlmanzarCT/NG, TMA, [id number] 00:00:00* Test Item Value Reference Range Interpretation Comme nts CHLAMYDIA, NAAT, URINE (test code = 90156) NEGATIVE GONORRHEA, NAAT, URINE (test code = 90372) NEGATIVE Fam [id number] 00:00:00* Test Item Value Reference Range Interpretation Comme nts RPR RESULT (test code = 3501) NON-REACTIVE RPR TITER (test code = 3500) NOT INDIC. TITER Fam AlmanzarPOCT MOLECULAR [id number] 21:12:14* Test Item Value Reference Range Interpretation Comme nts POCT Molecular FluA (test co de = 53710-3) Negative Negative POCT Molecular FluB (test co de = 47070-0) Negative Negative Lab Interpretation (test cod e = 71946-8) [facility] [id number] 21:12:14* Test Item Value Reference Range Interpretation Comme nts POCT Molecular FluA (test co de = 16986-8) Negative Negative POCT Molecular FluB (test co de = 79901-6) Negative Negative Lab Interpretation (test cod e = 22873-2) Normal [facility] MOLECULAR [id number] 21:12:14* Test Item Value Reference Range Interpretation Comme nts POCT Molecular FluA (test co de = 38619-4) Negative Negative POCT Molecular FluB (test co de = 41902-4) Negative Negative Lab Interpretation (test cod e = 05441-0) Normal [facility] MOLECULAR [id number] 21:04:45* Test Item Value Reference Range Interpretation Comme nts POCT Molecular Strep (test c ode = 95285-7) Negative Negative Lab Interpretation (test cod e = 02901-8) Normal [facility] MOLECULAR [id number] 21:04:45* Test Item Value Reference Range Interpretation Comme nts POCT Molecular Strep (test c ode = 09220-8) Negative Negative Lab Interpretation (test cod e = 67173-1) Normal [facility] MOLECULAR [id number] 21:04:45* Test Item Value Reference Range Interpretation Comme nts POCT Molecular Strep (test c ode = 34172-7) Negative Negative Lab Interpretation (test cod e = 21503-7) Normal [facility]/NG, NAAT, [id number] 10:28:27* Test Item Value Reference Range Interpretation Comme nts GONORRHEA, NAAT (test code = 76758) NEGATIVE NEGATIVE IMPORTANT NO ISRAEL: SEE ANNOUNCEMENT AT [email or web address] [email or web address] Note: Assay methodology is nucleic acid amplification by machine paint mixer mediated amplification (TMA) utilizing the Aptima Combo 2 Assay. CHLAMYDIA, NAAT (test code = 66818) NEGATIVE NEGATIVE IMPORTANT NO ISRAEL: SEE ANNOUNCEMENT AT [email or web address] [email or web address] Note: Assay methodology is nucleic acid amplification by machine paint mixer mediated amplification (TMA) utilizing the Aptima Combo 2 Assay. GC AND CHLAMYDIA, AMPLIFIED, [id number] 00:00:00* Test Item Value Reference Range Interpretation Comme nts GONORRHEA, NAAT (test code = 02790) NEGATIVE CHLAMYDIA, NAAT (test code = 81254) NEGATIVE Fam F AustinGC AND CHLAMYDIA, AMPLIFIED, [id number] 00:00:00* Test Item Value Reference Range Interpretation Comme nts GONORRHEA, NAAT (test code = 67863) NEGATIVE CHLAMYDIA, NAAT (test code = 69501) NEGATIVE Fam F AustinGC AND CHLAMYDIA, AMPLIFIED, [id number] 00:00:00* Test Item Value Reference Range Interpretation Comme nts GONORRHEA, NAAT (test code = 91911) NEGATIVE CHLAMYDIA, NAAT (test code = 49400) NEGATIVE Fam F AustinGC AND CHLAMYDIA, AMPLIFIED, [id number] 00:00:00* Test Item Value Reference Range Interpretation Comme nts GONORRHEA, NAAT (test code = 02169) NEGATIVE CHLAMYDIA, NAAT (test code = 03629) NEGATIVE Fam F AustinGC AND CHLAMYDIA, AMPLIFIED, [id number] 00:00:00* Test Item Value Reference Range Interpretation Comme nts GONORRHEA, NAAT (test code = 07446) NEGATIVE CHLAMYDIA, NAAT (test code = 16526) NEGATIVE Fam F AustinGC AND CHLAMYDIA, AMPLIFIED, [id number] 00:00:00* Test Item Value Reference Range Interpretation Comme nts GONORRHEA, NAAT (test code = 85556) NEGATIVE CHLAMYDIA, NAAT (test code = 70069) NEGATIVE Fam F AustinVAGINAL PATHOGENS DNA [id number] 13:18:05* Test Item Value Reference Range Interpretation Comme nts ROSA SPECIES (test code = 81457) POSITIVE NEGATIVE A G. VAGINALIS (test code = 22410) POSITIVE NEGATIVE A T. VAGINALIS (test code = 32524) NEGATIVE NEGATIVE UNLESS OTHERWISE INDICATED, [facility]ING PER[facility] [address] [place] [address] TOOL TURRET LATHE SET UP OPERATOR: CALVIN OLIVIA M.D. CLIA NUMBER [id number] [facility]. [id number] VAGINAL PATHOGENS DNA [id number] 00:00:00* Test Item Value Reference Range Interpretation Comme nts ROSA SPECIES (test code = 11473) POSITIVE G. VAGINALIS (test code = 97345) POSITIVE T. VAGINALIS (test code = 18047) NEGATIVE Fam Unger AustinVAGINAL PATHOGENS DNA [id number] 00:00:00* Test Item Value Reference Range Interpretation Comme nts ROSA SPECIES (test code = 45998) POSITIVE G. VAGINALIS (test code = 56938) POSITIVE T. VAGINALIS (test code = 61966) NEGATIVE Fam Unger AustinVAGINAL PATHOGENS DNA [id number] 00:00:00* Test Item Value Reference Range Interpretation Comme nts ROSA SPECIES (test code = 64393) POSITIVE G. VAGINALIS (test code = 95568) POSITIVE T. VAGINALIS (test code = 29383) NEGATIVE Fam Unger AustinVAGINAL PATHOGENS DNA [id number] 00:00:00* Test Item Value Reference Range Interpretation Comme nts ROSA SPECIES (test code = 90417) POSITIVE G. VAGINALIS (test code = 16260) POSITIVE T. VAGINALIS (test code = 31965) NEGATIVE Fam Unger AustinVAGINAL PATHOGENS DNA [id number] 00:00:00* Test Item Value Reference Range Interpretation Comme nts ROSA SPECIES (test code = 32964) POSITIVE G. VAGINALIS (test code = 81023) POSITIVE T. VAGINALIS (test code = 04734) NEGATIVE Fam Unger AustinVAGINAL PATHOGENS DNA [id number] 00:00:00* Test Item Value Reference Range Interpretation Comme nts ROSA SPECIES (test code = 41987) POSITIVE G. VAGINALIS (test code = 04095) POSITIVE T. VAGINALIS (test code = 77913) NEGATIVE Fam Unger AustinCT/NG, NAAT, [id number] 12:06:45* Test Item Value Reference Range Interpretation Comme nts GONORRHEA, NAAT (test code = 08205) NEGATIVE NEGATIVE IMPORTANT NO ISRAEL: SEE ANNOUNCEMENT AT [email or web address] [email or web address] Note: Assay methodology is nucleic acid amplification by machine paint mixer mediated amplification (TMA) utilizing the Aptima Combo 2 Assay. CHLAMYDIA, NAAT (test code = 54734) NEGATIVE NEGATIVE IMPORTANT NO ISRAEL: SEE ANNOUNCEMENT AT [email or web address] [email or web address] Note: Assay methodology is nucleic acid amplification by machine paint mixer mediated amplification (TMA) utilizing the [employer]pt[employer] Combo 2 Assay. UNLESS OTHERWISE INDICATED, [facility]FORMED [facility]. [address] [place] [address] TOOL TURRET LATHE SET UP OPERATOR: CALVIN OLIVIA M.D. CLIA NUMBER [id number] [place] [id number] GC AND CHLAMYDIA, AMPLIFIED, [id number] 00:00:00* Test Item Value Reference Range Interpretation Comme nts GONORRHEA, NAAT (test code = 50724) NEGATIVE CHLAMYDIA, NAAT (test code = 07967) NEGATIVE Fam F AustinGC AND CHLAMYDIA, AMPLIFIED, [id number] 00:00:00* Test Item Value Reference Range Interpretation Comme nts GONORRHEA, NAAT (test code = 56021) NEGATIVE CHLAMYDIA, NAAT (test code = 46179) NEGATIVE Fam F AustinGC AND CHLAMYDIA, AMPLIFIED, [id number] 00:00:00* Test Item Value Reference Range Interpretation Comme nts GONORRHEA, NAAT (test code = 97097) NEGATIVE CHLAMYDIA, NAAT (test code = 56849) NEGATIVE Fam F AustinGC AND CHLAMYDIA, AMPLIFIED, [id number] 00:00:00* Test Item Value Reference Range Interpretation Comme nts GONORRHEA, NAAT (test code = 50258) NEGATIVE CHLAMYDIA, NAAT (test code = 96800) NEGATIVE Fam F AustinGC AND CHLAMYDIA, AMPLIFIED, [id number] 00:00:00* Test Item Value Reference Range Interpretation Comme nts GONORRHEA, NAAT (test code = 08902) NEGATIVE CHLAMYDIA, NAAT (test code = 16876) NEGATIVE Fam F AustinGC AND CHLAMYDIA, AMPLIFIED, [id number] 00:00:00* Test Item Value Reference Range Interpretation Comme nts GONORRHEA, NAAT (test code = 60449) NEGATIVE CHLAMYDIA, NAAT (test code = 37677) NEGATIVE Fam F AustinGC AND CHLAMYDIA, AMPLIFIED, [id number] 00:00:00* Test Item Value Reference Range Interpretation Comme nts GONORRHEA, NAAT (test code = 37243) NEGATIVE CHLAMYDIA, NAAT (test code = 87515) NEGATIVE CHLAMYDIA, NAAT, [id number] 09:29:13* Test Item Value Reference Range Interpretation Comme nts CHLAMYDIA, NAAT (test code = 12641) POSITIVE NEGATIVE A IMPORTANT NO ISRAEL: SEE ANNOUNCEMENT AT [email or web address] [employer] SystemsobasUrineKit Note: Assay methodology is nucleic acid amplification by machine paint mixer mediated amplification (TMA) utilizing the Aptima Combo 2 Assay. GONORRHEA, NAAT, [id number] 09:29:13* Test Item Value Reference Range Interpretation Comme nts GONORRHEA, NAAT (test code = 45796) NEGATIVE NEGATIVE IMPORTANT NO ISRAEL: SEE ANNOUNCEMENT AT [email or web address] Note: Assay methodology is nucleic acid amplification by machine paint mixer mediated amplification (TMA) utilizing the Aptima Combo 2 Assay. CHLAMYDIA, AMPLIFIED, [id number] 00:00:00* Test Item Value Reference Range Interpretation Comme nts CHLAMYDIA, NAAT (test code = 78234) POSITIVE Fam AlmanzarGC, AMPLIFIED, [id number] 00:00:00* Test Item Value Reference Range Interpretation Comme nts GONORRHEA, NAAT (test code = 69742) NEGATIVE Fam Unger AustinCHLAMYDIA, AMPLIFIED, [id number] 00:00:00* Test Item Value Reference Range Interpretation Comme nts CHLAMYDIA, NAAT (test code = 66874) POSITIVE Fam Unger AustinGC, AMPLIFIED, [id number] 00:00:00* Test Item Value Reference Range Interpretation Comme nts GONORRHEA, NAAT (test code = 79371) NEGATIVE Fam F AustinCHLAMYDIA, AMPLIFIED, [id number] 00:00:00* Test Item Value Reference Range Interpretation Comme nts CHLAMYDIA, NAAT (test code = 30749) POSITIVE Fam F AustinGC, AMPLIFIED, [id number] 00:00:00* Test Item Value Reference Range Interpretation Comme nts GONORRHEA, NAAT (test code = 51774) NEGATIVE Fam F AustinCHLAMYDIA, AMPLIFIED, [id number] 00:00:00* Test Item Value Reference Range Interpretation Comme nts CHLAMYDIA, NAAT (test code = 36970) POSITIVE Fam AlmanzarGC, AMPLIFIED, [id number] 00:00:00* Test Item Value Reference Range Interpretation Comme nts GONORRHEA, NAAT (test code = 71381) NEGATIVE Fam AlmanzarCHLAMYDIA, AMPLIFIED, [id number] 00:00:00* Test Item Value Reference Range Interpretation Comme nts CHLAMYDIA, NAAT (test code = 37366) POSITIVE Fam AlmanzarGC, AMPLIFIED, [id number] 00:00:00* Test Item Value Reference Range Interpretation Comme nts GONORRHEA, NAAT (test code = 70481) NEGATIVE Fam Unger AustinCHLAMYDIA, AMPLIFIED, [id number] 00:00:00* Test Item Value Reference Range Interpretation Comme nts CHLAMYDIA, NAAT (test code = 84058) POSITIVE Fam AlmanzarGC, AMPLIFIED, [id number] 00:00:00* Test Item Value Reference Range Interpretation Comme nts GONORRHEA, NAAT (test code = 62650) NEGATIVE Fam AlmanzarCHLAMYDIA, AMPLIFIED, [id number] 00:00:00* Test Item Value Reference Range Interpretation Comme nts CHLAMYDIA, NAAT (test code = 26493) POSITIVE GC, AMPLIFIED, [id number] 00:00:00* Test Item Value Reference Range Interpretation Comme nts GONORRHEA, NAAT (test code = 22645) NEGATIVE HIV 1/2 4TH GEN, RFLX [id number] 04:39:43* Test Item Value Reference Range Interpretation Comme nts HIV 1/2 4TH GEN, RFLX CONF (test code = 3514) NON-REACTIVE NON-REACTIVE UNLESS OTHERWISE INDICATED, ALL TESTING [facility] [address] [place] [address] TOOL TURRET LATHE SET UP OPERATOR: CALVIN OLIVIA M.D. CLIA NUMBER [id number] [facility] [place]. [id number] 04:03:59* Test Item Value Reference Range Interpretation Comme nts RPR RESULT (test code = 3501) NON-REACTIVE NON-REACTIVE RPR TITER (test code = 3500) NOT INDIC. TITER NOT INDIC. [id number] 00:00:00* Test Item Value Reference Range Interpretation Comme nts RPR RESULT (test code = 3501) NON-REACTIVE RPR TITER (test code = 3500) NOT INDIC. TITER Fam Unger AustinHIV AB/AG COMBO RFLX [id number] 00:00:00* Test Item Value Reference Range Interpretation Comme nts HIV 1/2 4TH GEN, RFLX CONF ( test code = 3514) NON-REACTIVE Fam Unger [id number] 00:00:00* Test Item Value Reference Range Interpretation Comme nts RPR RESULT (test code = 3501) NON-REACTIVE RPR TITER (test code = 3500) NOT INDIC. TITER Fam Unger AustinHIV AB/AG COMBO RFLX [id number] 00:00:00* Test Item Value Reference Range Interpretation Comme nts HIV 1/2 4TH GEN, RFLX CONF ( test code = 3514) NON-REACTIVE Fam Unger [id number] 00:00:00* Test Item Value Reference Range Interpretation Comme nts RPR RESULT (test code = 3501) NON-REACTIVE RPR TITER (test code = 3500) NOT INDIC. TITER Fam Unger AustinHIV AB/AG COMBO RFLX [id number] 00:00:00* Test Item Value Reference Range Interpretation Comme nts HIV 1/2 4TH GEN, RFLX CONF ( test code = 3514) NON-REACTIVE Fam Unger [id number] 00:00:00* Test Item Value Reference Range Interpretation Comme nts RPR RESULT (test code = 3501) NON-REACTIVE RPR TITER (test code = 3500) NOT INDIC. TITER Fam Unger AustinHIV AB/AG COMBO RFLX [id number] 00:00:00* Test Item Value Reference Range Interpretation Comme nts HIV 1/2 4TH GEN, RFLX CONF ( test code = 3514) NON-REACTIVE Fam Unger [id number] 00:00:00* Test Item Value Reference Range Interpretation Comme nts RPR RESULT (test code = 3501) NON-REACTIVE RPR TITER (test code = 3500) NOT INDIC. TITER Fam Unger AustinHIV AB/AG COMBO RFLX [id number] 00:00:00* Test Item Value Reference Range Interpretation Comme nts HIV 1/2 4TH GEN, RFLX CONF ( test code = 3514) NON-REACTIVE Fam [id number] 00:00:00* Test Item Value Reference Range Interpretation Comme nts RPR RESULT (test code = 3501) NON-REACTIVE RPR TITER (test code = 3500) NOT INDIC. TITER Fam AlmanzarHIV AB/AG COMBO RFLX [id number] 00:00:00* Test Item Value Reference Range Interpretation Comme nts HIV 1/2 4TH GEN, RFLX CONF ( test code = 3514) NON-REACTIVE Fam [id number] 00:00:00* Test Item Value Reference Range Interpretation Comme nts RPR RESULT (test code = 3501) NON-REACTIVE RPR TITER (test code = 3500) NOT INDIC. TITER HIV AB/AG COMBO RFLX [id number] 00:00:00* Test Item Value Reference Range Interpretation Comme nts HIV 1/2 4TH GEN, RFLX CONF ( test code = 3514) NON-REACTIVE Notes Date/Time Note Provider Source [facility]2025-03-17 00:00:00 [facility]2025-02-03 00:00:00 [facility]2025-01-13 00:00:00 [facility]2024-12-04 00:00:00 [facility]2024-08-10 00:00:00 [facility]
[2025-01-21 14:11] LABS: Absolute Eosinophils 0.2 K/uL (0-0.5); Absolute Lymphocytes (CBC) 1.6 K/uL (0.7-4.9); Absolute Monocytes 0.7 K/uL (0.1-1.3); Absolute Neutrophil 9.1 K/uL (1.8-8.0); Basophils % 0.4 % (0-1.3); Eosinophils % 1.4 % (0-4.4); Hemoglobin 11.8 g/dL (12.0-15.0); Lymphocytes % 14.1 % (15.3-44.8); MCHC 34.6 g/dL (32.0-36.0); MCV 83.6 fL (80-100); MPV 8.7 fL (7.6-11.3); Monocytes % 6.1 % (3.3-12.3); Platelets 243 thou/uL (152-406); RBC Red Blood Cell Count 4.07 M/uL (3.86-4.86); Red Cell Distribution Width 13.9 % (12.1-15.2)
[2025-01-21 14:18] LABS: Specific Gravity 1.026 (1.005-1.030); Sqamous Epithelial <5 /HPF (None Seen); Urine Bacteria None Seen /HPF (<20); Urine Bilirubin NEGATIVE (Negative); Urine Blood Trace (Negative); Urine Clarity Clear (Clear); Urine Color Light-Yellow (Yellow); Urine Glucose 3+ (Negative); Urine Ketones 2+ (Negative); Urine Micro Reflex YN NO BILL MICROSCOPIC; Urine Mucus Slight /HPF (None Seen); Urine Nitrite NEGATIVE (Negative); Urine Protein TRACE (Negative); Urine RBC <5 /HPF (None Seen); Urine Urobilinogen Normal (Normal); Urine WBC <5 /HPF (<5); Urine pH 5.5 (5.0-7.0)
[2025-01-21 14:29] LABS: Anion Gap 10.2 mEq/L (5.0-15.0); Potassium 3.2 mEq/L (3.5-5.1)
--- NOTE | 2025-01-21 14:48 | RAD REPORT ---
EXAMINATION: US OB Limited COMPARISON: None. HISTORY: [facility] MAIN ABD PAIN Bed Name: IW1 TECHNIQUE: Real-time ultrasound was performed through the pelvis. A transvaginal scan was performed t o better visualize the intrauterine contents and adnexa. FINDINGS: There is a single living intrauterine . Placenta is forming posteriorly. No findings to suggest placenta previa. Fetus transverse lie. anatomical detail is not well evaluated, should be evaluated around 20 weeks gestational age. Right ovary appears unremarkable. Left ovary was not visualized. Subjectively normal volume of amniotic fluid. There is no free fluid in the cul-de-sac. Measurements and Calculations: Femur length 2.07 cm, consistent with a sonographic age of 16 weeks, 1 days. The patient's LMP dates are 09/29/2024. heart rate: 149 BPM. IMPRESSION: Single living intrauterine , with a composite sonographic age of 16 weeks, 1 days. No eviden ce of complications at this time.
--- NOTE | 2025-01-21 16:07 | EDPHYS ---
Physician Documentation [facility] Name: Caroline Molina Age: 19 yrs Sex: Female : 2005 Arrival Date: 01/21/2025 Time: 12:56 Bed 9 Private MD: ED Physician Raimundo Naylor HPI: 01/21 13:18 This 19 yrs old Female presents to ER via Ambulatory with complaints of ms3 Abdominal Pain - 4 months preg. 13:18 19-year-old female -0-1-0, would last LMP of 09/29/2024 presents to the emergency ms3 department for left-sided lower abdominal pain that began yesterday. Patient denies nausea, vomiting, diarrhea, loss of fluids, fevers, chills, urinary symptoms. Patient states she is not aware of her blood type. Patient seeks care at [facility].. 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 - Infectious Disease History:: Denies. - Social history:: Smoking status: Patient denies any tobacco usage or history of. ROS: 13:18 Constitutional: Negative for fever, and chills. Cardiovascular: Negative for chest ms3 pain, and palpitations. Respiratory: Negative for shortness of breath, cough, wheezing, and pleuritic chest pain, 13:18 Abdomen/GI: Positive for abdominal pain, Exam: 13:18 Constitutional: This is a well developed, well nourished patient who is awake, alert, ms3 and in no acute distress. Cardiovascular: Regular rate and rhythm with a normal S1 and S2. No gallops, murmurs, or rubs. Normal PMI, no JVD. No pulse deficits. Respiratory: Lungs have equal breath sounds bilaterally, clear to auscultation and percussion. No rales, rhonchi or wheezes noted. No increased work of breathing, no retractions or nasal flaring. Abdomen/GI: Soft, non-tender, with normal bowel sounds. No distension or tympany. No guarding or rebound. No evidence of tenderness throughout. Skin: Warm, dry with normal turgor. Normal color with no rashes, no lesions, and no evidence of cellulitis. MS/ Extremity: Pulses equal, no cyanosis. Neurovascular intact. Full, normal range of motion. Vital Signs: 13:06 BP 115 / 66; Pulse 95; Resp 16; Temp 97.7; Pulse Ox 97% on R/A; Weight 45.36 kg; Height iw 4 ft. 11 in. ; Pain 7/10; 16:17 BP 104 / 62; Pulse 87; Resp 16; Pulse Ox 97% on R/A; ll1 13:06 Body Mass Index 20.20 (45.36 kg, 149.86 cm) iw 13:06 Pain Scale: Adult iw MDM: 13:17 Medical Screening Exam initiated ms3 13:18 Differential diagnosis: non-specific abd pain, urinary tract infection, . ms3 16:09 Data reviewed: vital signs, nurses notes, lab test result(s), radiologic studies, and ms3 as a result, I will discharge patient. Counseling: I had a detailed discussion with the patient and/or guardian regarding the historical points, exam findings, and any diagnostic results supporting the discharge/admit diagnosis, lab results, radiology results, the need for outpatient follow up, to return to the emergency department if symptoms worsen or persist or if there are any questions or concerns that arise at home. Special discussion: I discussed with the patient/guardian in detail that at this point there is no indication for admission to the hospital. It is understood, however, that if the symptoms persist or worsen the patient needs to return immediately for re-evaluation. ED course: Discussed ultrasound and lab findings with patient. 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 Patient understands agrees with plan. Questions were answered. Return precautions discussed include worsening symptoms, or any other concerns. On reevaluation patient is alert and oriented x 4, no apparent distress, nontoxic-appearing, ambulatory in emergency department, speaking full sentences.. 01/21 13:18 Order name: Abo/rh Typing; Complete Time: 15:33 ms3 01/21 13:18 Order name: Basic Metabolic Panel; Complete Time: 14:56 ms3 01/21 13:18 Order name: CBC with Diff; Complete Time: 14:56 ms3 01/21 13:18 Order name: Test, Urine; Complete Time: 14:56 ms3 01/21 13:18 Order name: UA W/ Microscopic; Complete Time: 14:56 ms3 01/21 13:53 Order name: OB Limited; Complete Time: 14:56 EDMS 01/21 13:18 Order name: IV Saline Lock; Complete Time: 14:09 ms3 01/21 13:18 Order name: Labs collected and sent; Complete Time: 14:09 ms3 01/21 13:18 Order name: NPO; Complete Time: 14:09 ms3 Administered Medications: No medications were administered Disposition Summary: 01/21/25 16:06 Discharge Ordered Notes: Location: Home ms3 Condition: Stable ms3 Diagnosis - 16 weeks gestation of ms3 - Lower abdominal pain, unspecified ms3 - Anemia, unspecified ms3 Followup: ms3 - With: Private Physician - When: 2 - 3 days - Reason: Recheck today's complaints Discharge Instructions: - Discharge Summary Sheet ms3 - Anemia ms3 - and Anemia ms3 - Second Trimester of , [id number] ms3 Forms: - Medication Reconciliation Form ms3 - Antibiotic Education ms3 - Prescription Opioid Use ms3 - Patient Portal Instructions ms3 - Leadership Thank You Letter ms3 Signatures: Dispatcher [employer] Jeanie Hernandez, RN RN Raimundo Croft DO DO ms3 Corrections: (The following items were deleted from the chart) 13:53 13:18 Transvaginal Ob+US.RAD.BRZ ordered. CHLOE MAYSMS
--- NOTE | 2025-01-21 16:07 | ER ---
Nurse's Notes [facility] Name: Caroline Molina Age: 19 yrs Sex: Female : 2005 Arrival Date: 01/21/2025 Time: 12:56 Bed 9 Private MD: Diagnosis: 16 weeks gestation of ;Lower abdominal pain, unspecified;Anemia, unspecified Presentation: 01/21 13:06 Chief complaint: Patient states: yesterday having bad abd pain , at work today it was iw hurting so bad i couldn't walk, pain to LLQ , denies urinary symptoms, is approx 16 weeks , no vaginal bleeding. Coronavirus screen: At this time, the client does not indicate any symptoms associated with coronavirus-19. Ebola Screen: No symptoms or risks identified at this time. Initial Sepsis Screen: Does the patient meet any 2 criteria? No. Patient's initial sepsis screen is negative. Does the patient have a suspected source of infection? No. Patient's initial sepsis screen is negative. Risk Assessment: Do you want to hurt yourself or someone else? Patient reports no desire to harm self or others. Onset of symptoms was January 20, 2025. 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 - Infectious Disease History:: Denies. - Social history:: Smoking status: Patient denies any tobacco usage or history of. Screenin:55 [facility] ED Fall Risk Assessment (Adult) History of falling in the last 3 months, aa5 including since admission No falls in past 3 months (0 pts) Confusion or Disorientation No (0 pts) Intoxicated or Sedated No (0 pts) Impaired Gait No (0 pts) Mobility Assist Device Used No (0 pt) Altered Elimination No (0 pt) Score/Fall Risk Level 0 - 2 = Low Risk Oriented to surroundings, Maintained a safe environment, Educated pt \T\ family on fall prevention, incl call for assistance when getting out of bed, Assessed \T\ reinforced patient's understanding of fall precautions. Abuse screen: Denies threats or abuse. Nutritional screening: No deficits noted. Tuberculosis screening: No symptoms or risk factors identified. Assessment: 13:38 Reassessment: Patient and/or family updated on plan of care and expected duration. Pain cm10 level reassessed. 13:55 General: Appears comfortable, Behavior is calm, cooperative. Pain: Denies pain. Neuro: aa5 Level of Consciousness is awake, alert, obeys commands, Oriented to person, place, time, situation. Cardiovascular: Patient's skin is warm and dry. Respiratory: Airway is patent Respiratory effort is even, unlabored, Respiratory pattern is regular, symmetrical. GI: Abdomen is round non-distended, Bowel sounds present X 4 quads. Abd is soft and non tender X 4 quads. Patient currently denies diarrhea, nausea, vomiting. : Denies vaginal bleeding. EENT: No signs and/or symptoms were reported regarding the EENT system. Derm: Skin is pink, warm \T\ dry. Musculoskeletal: Range of motion: intact in all extremities. 16:16 Reassessment: No changes from previously documented assessment. Patient and/or family ll1 updated on plan of care and expected duration. Pain level reassessed. Patient is alert, oriented x 3, equal unlabored respirations, skin warm/dry/pink. Vital Signs: 13:06 BP 115 / 66; Pulse 95; Resp 16; Temp 97.7; Pulse Ox 97% on R/A; Weight 45.36 kg; Height iw 4 ft. 11 in. ; Pain 7/10; 16:17 BP 104 / 62; Pulse 87; Resp 16; Pulse Ox 97% on R/A; ll1 13:06 Body Mass Index 20.20 (45.36 kg, 149.86 cm) iw 13:06 Pain Scale: Adult iw ED Course: 13:00 Patient arrived in ED. al6 13:05 Raimundo Naylor DO is Attending Physician. ms3 13:08 Triage completed. iw 13:08 Arm band placed on. iw 13:38 Leah Munoz, RN is Primary Nurse. aa5 13:38 Patient placed in an exam room, on a stretcher. cm10 13:53 OB Limited In Process Unspecified. EDMS 13:55 Patient has correct armband on for positive identification. Bed in low position. Call aa5 light in reach. Side rails up X 1. 13:58 Urine collected: clean catch specimen, sent to lab. aa5 14:03 Initial lab(s) drawn, by me, sent to lab. Inserted saline lock: 20 gauge in right aa5 antecubital area, using aseptic technique. Blood collected. Flushed with 10 mL NS. 16:17 No provider procedures requiring assistance completed. IV discontinued, intact, ll1 bleeding controlled, No redness/swelling at site. Pressure dressing applied. 16:18 Provided Education on: ER procedures and process. ll1 Administered Medications: No medications were administered Medication: 14:13 VIS not applicable for this client. aa5 Outcome: 16:06 Discharge ordered by . ms3 16:17 Discharged to home ambulatory, ll1 16:17 Condition: stable 16:17 Discharge instructions given to patient, Instructed on discharge instructions, follow up and referral plans. Demonstrated understanding of instructions, follow-up care, 16:18 Patient left the ED. ll1 Signatures: Dispatcher [employer] EDMS Jeanie Hunt, RN RN Leah Munoz, RN RN aa5 Reggie Varela RN RN ll1 Raimundo Naylor DO DO ms3 Anabelle Layne, RN RN cm10 Kinza Bolanos6
[2025-01-21 16:29] VITALS: TEMP 97.7; O2SAT 97
[2025-01-21 16:47] VITALS: BP 104/62
== END 2025-01-21 16:18 | disposition home or self-care (01) ==
LOC: ER 12:56
DX: O99.012 Anemia complicating pregnancy, second trimester (principal); O26.892 Other specified pregnancy related conditions, second trimester; Z3A.16 16 weeks gestation of pregnancy
CPT/HCPCS: 36415; 76815; 80048; 81001; 81025; 85025; 86900; 86901; 99283